=== PATIENT | male | born 1955 | race Caucasian/White ===

== ENCOUNTER 2020-08-30 15:22 | Inpatient (IN) | payer BC ==
--- NOTE | 2020-08-30 16:05 | ER Document Report ---
ED Medical Screen (RME) - General Chief Complaint: Abnormal Lab Results Stated Complaint: ABNORMAL LABS Time Seen by Provider: 08/30/20 16:00 Mode of Arrival: Wheelchair Information source: Patient Notes: 64-year-old male presented to ED for possible admission. Dr. Lopez sent him over for abnormal labs. 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 He is not on dialysis. Dr. Callum garcia said to try to get [facility] to admitting his his patient but he has not seen him yet. He has accepted him as a new make patient. Patient's blood pressure was very low in the triage area we have called charge nurse trying to get him room promptly due to the vital signs. Patient is alert oriented respirations regular nonlabored at this time. I have greeted and performed a rapid initial assessment of this patient. A comprehensive ED assessment and evaluation of the patient, analysis of test results and completion of medical decision making process will be conducted by an additional ED providers. - Related Data Allergies/Adverse Reactions: No Known Allergies Allergy (Verified 08/30/20 15:57) Physical Exam - Vital signs Vitals: Temp Pulse Resp BP Pulse Ox 97.7 F 89 22 H 89/52 L 98 08/30/20 15:39 08/30/20 15:39 08/30/20 15:39 08/30/20 15:39 08/30/20 15:39 Course - Vital Signs Vital signs: Temp Pulse Resp BP Pulse Ox 97.7 F 89 22 H 89/52 L 98 08/30/20 15:39 08/30/20 15:39 08/30/20 15:39 08/30/20 15:39 08/30/20 15:39
--- NOTE | 2020-08-30 16:47 | ER Document Report ---
ED General - General Chief Complaint: Abnormal Lab Results Stated Complaint: ABNORMAL LABS Time Seen by Provider: 08/30/20 16:00 Primary Care Provider: DIANA SHERMAN MD [Primary Care Provider] - Follow up as needed Mode of Arrival: Wheelchair Information source: Patient, Relative - [facility] Notes: Patient was recently diagnosed with metastatic esophageal cancer. He was living in [place] when this was diagnosed. He has since moved here to [place] to be with family and to start treatment. He had his first appointment with oncology yesterday. They are going to start his chemotherapy relatively soon. Some baseline labs are drawn at the oncologist office yesterday and they return markedly abnormal so patient was informed to come to the emergency department. Patient states he feels weak and short of breath. Patient has had some dull ri ght upper quadrant pain as well. It radiates into his back. This has been since before the diagnosis of cancer. No significant change of this pain. It is made worse with movement or palpation and better with rest. No vomiting. He has had decreased urine output and his urine has been dark. - Related Data Allergies/Adverse Reactions: No Known Allergies Allergy (Verified 08/30/20 15:57) Home Medications: heart. lasix. dm. ca Past Medical History - General Information source: Patient - Social History Smoking Status: Former Smoker Chew tobacco use (# tins/day): No Frequency of alcohol use: None Drug Abuse: None Family History: Reviewed & Not Pertinent Patient has homicidal ideation: No Review of Systems - Review of Systems Constitutional: Malaise, Weakness. denies: Chills, Fever Cardiovascular: denies: Chest pain, Palpitations Respiratory: Short of breath. denies: Cough -: Yes All other systems reviewed and negative Physical Exam - Vital signs Vitals: Temp Pulse Resp BP Pulse Ox 97.7 F 89 22 H 89/52 L 98 08/30/20 15:39 08/30/20 15:39 08/30/20 15:39 08/30/20 15:39 08/30/20 15:39 Interpretation: Hypotensive - General General appearance: Appears well, Alert - HEENT Head: Normocephalic, Atraumatic Eyes: Normal Pupils: PERRL - Respiratory Respiratory status: No respiratory distress Chest status: Nontender Breath sounds: Decreased air movement Chest palpation: Normal - Cardiovascular Rhythm: Regular Heart sounds: Normal auscultation Murmur: No - Abdominal Inspection: Morbidly Obese Distension: Distended Tenderness: Tender - Right upper quadrant - Back Back: Normal, Nontender - Extremities General upper extremity: Normal inspection, Nontender, Normal color, Normal ROM, Normal temperature General lower extremity: Nontender, Edema - 3+ pitting bilaterally - Neurological Neuro grossly intact: Yes Cognition: Normal Orientation: AAOx4 Maryann Coma Scale Eye Opening: Spontaneous Maryann Coma Scale Verbal: Oriented Lacey Coma Scale Motor: Obeys Commands Lacey Coma Scale Total: 15 Speech: Normal Motor strength normal: LUE, RUE, LLE, RLE Sensory: Normal - Psychological Associated symptoms: Normal affect, Normal mood - Skin Skin Temperature: Warm Skin Moisture: Dry Skin Color: Pale Course - Re-evaluation Re-evalutation: 08/30/20 17:50 Patient with a history of metastatic esophageal cancer. He presents secondary to having abnormal labs at the oncology office yesterday. He currently states he has some weakness, fatigue and shortness of breath. He has acute renal failure at this time. His potassium is stable. BP is borderline but vitals otherwise stable. I have discussed the case with the primary physician as well as with the battery container tester. Patient will be admitted for further evaluation and therapy of his metastatic cancer and acute renal failure. - Vital Signs Vital signs: Temp Pulse Resp BP Pulse Ox 97.7 F 89 23 H 94/56 L 100 08/30/20 15:58 08/30/20 15:39 08/30/20 16:31 08/30/20 16:31 08/30/20 16:31 - Laboratory Result Diagrams: 08/30/20 16:40 08/30/20 16:40 Laboratory results interpreted by me: 08/30/20 08/30/20 16:40 16:40 WBC 13.1 H RBC 3.35 L Hgb 11.0 L Hct 32.0 L RDW 18.5 H Seg Neuts % (Manual) 83 H Band Neutrophils % 1 L Lymphocytes % (Manual) 11 L Abs Neuts (Manual) 11.0 H Sodium 135.6 L Chloride 94 L BUN 90 H Creatinine 6.18 H Est GFR ( Amer) 11 L Est GFR (MDRD) Non-Af 9 L Glucose 114 H Total Bilirubin 3.5 H Direct Bilirubin 2.8 H AST 276 H Alkaline Phosphatase 524 H Total Protein 6.1 L Albumin 2.8 L - Diagnostic Test Radiology reviewed: Image reviewed, Reports reviewed - EKG Interpretation by Me EKG shows normal: Sinus rhythm Rate: Normal - 79 Rhythm: NSR Mary Alice/QRS: LAHB/LAFB Discharge - Discharge Clinical Impression: Acute renal failure Qualifiers: Acute renal failure type: unspecified Qualified Code(s): N17.9 - Acute kidney failure, unspecified Esophageal cancer Qualifiers: Malignant neoplasm of esophagus location: unspecified location Qualified Code(s): C15.9 - Malignant neoplasm of esophagus, unspecified Condition: Stable Disposition: ADMITTED INPATIENT Admitting Provider: [facility] Unit Admitted: IMCU Referrals: DIANA SHERMAN MD [Primary Care Provider] - Follow up as needed
[2020-08-30 17:02] LABS: MEAN CORPUSCULAR HEMOGLOBIN 32.8 pg (27.0-33.4); MEAN CORPUSCULAR HGB CONC 34.4 g/dL (32.0-36.0); MEAN CORPUSCULAR VOLUME 96 fl (80-97); PLATELET COUNT 275 10^3/uL (150-450); RED BLOOD COUNT 3.35 10^6/uL (4.35-5.55); RED CELL DISTRIBUTION WIDTH 18.5 % (11.5-14.0); WHITE BLOOD COUNT 13.1 10^3/uL (4.0-10.5)
--- NOTE | 2020-08-30 17:15 | RADIOLOGY REPORT (SQ) ---
EXAM DESCRIPTION: CHEST SINGLE VIEW IMAGES COMPLETED DATE/TIME: 08/30/2020 4:56 pm REASON FOR STUDY: sob COMPARISON: None. EXAM PARAMETERS: NUMBER OF VIEWS: One view. TECHNIQUE: Single frontal radiographic view of the chest acquired. RADIATION DOSE: NA LIMITATIONS: None. FINDINGS: LUNGS AND PLEURA: Parenchymal opacities at the left base. MEDIASTINUM AND HILAR STRUCTURES: No masses. Contour normal. HEART AND VASCULAR STRUCTURES: Heart normal in size. Normal vasculature. BONES: No acute findings. HARDWARE: Venous access catheter tip at the cavoatrial junction. OTHER: No other significant finding. IMPRESSION: Nonspecific parenchymal opacities left base. TECHNICAL DOCUMENTATION: JOB ID: [id number] 2010 [employer]- All Rights Reserved Reading location - IP/workstation name: [email or web address]
[2020-08-30 17:19] LABS: ALBUMIN 2.8 g/dL (3.5-5.0); ALKALINE PHOSPHATASE 524 U/L (38-126); ANION GAP 18 (5-19); ASPARTATE AMINO TRANSFERASE 276 U/L (17-59); BILIRUBIN,DIRECT 2.8 mg/dL (0.0-0.4); BILIRUBIN,TOTAL 3.5 mg/dL (0.2-1.3); BLOOD UREA NITROGEN 90 mg/dL (7-20); CALCIUM 8.6 mg/dL (8.4-10.2); CARBON DIOXIDE 24 mmol/L (22-30); CHLORIDE 94 mmol/L (98-107); GLUCOSE 114 mg/dL (75-110); POTASSIUM 3.7 mmol/L (3.6-5.0); TOTAL PROTEIN 6.1 g/dL (6.3-8.2)
[2020-08-30 17:36] LABS: ABSOLUTE LYMPHOCYTES# (MANUAL) 1.4 10^3/uL (0.5-4.7); ABSOLUTE MONOCYTES # (MANUAL) 0.5 10^3/uL (0.1-1.4); ANISOCYTOSIS 2+; BAND NEUTROPHILS % (MANUAL) 1 % (3-5); BASOPHILS % (MANUAL) 0 % (0-2); EOSINOPHILS % (MANUAL) 1 % (0-6); LYMPHOCYTES % (MANUAL) 11 % (13-45); MONOCYTES % (MANUAL) 4 % (3-13); PLATELET COMMENT ADEQUATE; SEGMENTED NEUTROPHILS % (MAN) 83 % (42-78); TOTAL CELLS COUNTED 100
[2020-08-30 17:37] LABS: POLYCHROMASIA SLIGHT
[2020-08-30 17:39] LABS: POIKILOCYTOSIS 1+; TARGET CELLS 1+
--- NOTE | 2020-08-30 18:06 | EKG REPORT ---
SEVERITY:- ABNORMAL ECG - SINUS RHYTHM LEFT ANTERIOR FASCICULAR BLOCK ABNRM R PROG, CONSIDER ASMI OR LEAD PLACEMENT PROLONGED QT INTERVAL : Confirmed by: Hannah Smith 30-Aug-2020 18:05:24
[2020-08-30] MEDS ORDERED: NORMAL SALINE 500 ML IV ONE (18:09)
[2020-08-30] MEDS ORDERED: NORMAL SALINE 1000 ML 1,000 ML IV PRN (18:14)
--- NOTE | 2020-08-30 18:20 | Progress Note ---
Provider Note Provider Note: pt seen and exam in er and d/w pr and his daughter pt is full code will getmed record as new pt for me
[2020-08-30] MEDS ORDERED: DOPAMINE HCL/DEXTROSE 5%-WATER 400 MG/250 ML RTUINJ IV PRN (18:29)
[2020-08-30] MEDS ORDERED: NORMAL SALINE 250 ML with FUROSEMIDE 250 MG IV PRN ×2 (18:30)
[2020-08-30] MEDS ORDERED: ALBUMIN HUMAN 12.5 GM/50 ML RTUINJ IV ONE (18:45)
--- NOTE | 2020-08-30 18:55 | RADIOLOGY REPORT (SQ) ---
EXAM DESCRIPTION: CT ABD/PELVIS NO ORAL OR IV IMAGES COMPLETED DATE/TIME: 08/30/2020 6:33 pm REASON FOR STUDY: renal faiulre COMPARISON: None. TECHNIQUE: CT scan of the abdomen and pelvis performed without intravenous or oral contrast. Images reviewed with lung, soft tissue, and bone windows. Reconstructed coronal and sagittal MPR images revi ewed. All images stored on PACS. All CT scanners at this facility use dose modulation, iterative reconstruction, and/or weight based d osing when appropriate to reduce radiation dose to as low as reasonably achievable (ALARA). [facility]: Dose Right [facility]: CareDose [facility]: Dose Right [facility]: Teradose 4D [facility]: Smart Onevest RADIATION DOSE: CT Rad equipment meets quality standard of care and radiation dose reduction techniq ues were employed. CTDIvol: 19.1 mGy. DLP: 1153 mGy-cm.mGy. LIMITATIONS: None. FINDINGS: LOWER CHEST: No significant findings. No nodules or infiltrates. NON-CONTRASTED LIVER, SPLEEN, ADRENALS: The liver parenchymal pattern is somewhat heterogeneous. The re are possible masses in the liver. Small amount of fluid along the inferior liver. 3 cm left adre nal mass. PANCREAS: No masses. No peripancreatic inflammatory changes. GALLBLADDER: No identified stones by CT criteria. No inflammatory changes to suggest cholecystitis. RIGHT KIDNEY AND URETER: No suspicious masses. Assessment limited by lack of IV contrast. No signif icant calcifications. No hydronephrosis or hydroureter. LEFT KIDNEY AND URETER: No suspicious masses. Assessment limited by lack of IV contrast. No signifi cant calcifications. No hydronephrosis or hydroureter. AORTA AND RETROPERITONEUM: No aneurysm. No retroperitoneal masses or adenopathy. BOWEL AND PERITONEAL CAVITY: Generalized ascites. No obvious masses. Diverticulosis. APPENDIX: Not visualized. PELVIS, BLADDER, AND ABDOMINAL WALL:No abnormal masses. No free fluid. Bladder normal. BONES: No significant findings. OTHER: No other significant finding. IMPRESSION: Heterogeneous pattern in the liver which is strongly suspicious for multiple masses. Generalize moderate ascites. Findings very worrisome for metastatic disease. COMMENT: Recommend hepatic ultrasound. Quality ID # [id number]: Final reports with documentation of one or more dose reduction techniques (e.g., Au tomated exposure control, adjustment of the mA and/or kV according to patient size, use of iterative reconstruction technique) TECHNICAL DOCUMENTATION: JOB ID: [id number] 2010 [employer]- All Rights Reserved Reading location - IP/workstation name: [email or web address]
[2020-08-30] MEDS ORDERED: DOPAMINE HCL/DEXTROSE 5%-WATER 800 MG/250 ML RTUINJ IV PRN (18:56)
--- NOTE | 2020-08-30 19:01 | RADIOLOGY REPORT (SQ) ---
EXAM DESCRIPTION: VENOUS BILATERAL LOWER IMAGES COMPLETED DATE/TIME: 08/30/2020 6:40 pm REASON FOR STUDY: CRESCENCIO leg swelling COMPARISON: None. TECHNIQUE: Dynamic and static santos scale and color images acquired of both lower extremity venous sy stems. Selected spectral images acquired with additional compression and augmentation maneuvers. Imag es stored on PACS. LIMITATIONS: None. FINDINGS: RIGHT LEG COMMON FEMORAL AND FEMORAL: Normal phasicity, compression and augmentation. No visualized echogenic m aterial on santos scale. No defects on color images. POPLITEAL: Normal compression and augmentation. No visualized echogenic material on santos scale. No de fects on color images. CALF VESSELS: Normal compression and augmentation. No visualized echogenic material on santos scale. No defects on color image. GSV AND SSV: Normal compression. No visualized echogenic material on santos scale. No defects on color images. ANY DEEP VENOUS INSUFFICIENCY: Not evaluated. ANY EVIDENCE OF POPLITEAL CYST: No. OTHER: No other significant finding. LEFT LEG COMMON FEMORAL AND FEMORAL: Normal phasicity, compression and augmentation. No visualized echogenic m aterial on santos scale. No defects on color images. POPLITEAL: Normal compression and augmentation. No visualized echogenic material on santos scale. No de fects on color images. CALF VESSELS: Normal compression and augmentation. No visualized echogenic material on santos scale. No defects on color images. GSV AND SSV: Chronic in the saphenous below the knee. ANY DEEP VENOUS INSUFFICIENCY: Not evaluated. ANY EVIDENCE POPLITEAL CYST: No. OTHER: No other significant finding. IMPRESSION: No acute DVT or SVT in either leg. 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 TECHNICAL DOCUMENTATION: JOB ID: [id number] 2010 [employer]- All Rights Reserved Reading location - IP/workstation name: [email or web address]
[2020-08-30] MEDS: CEFTRIAXONE 1 GM/D5W RTU 1 GM/50 ML RTUPB IV SCH (19:08)
--- NOTE | 2020-08-30 19:28 | RADIOLOGY REPORT (SQ) ---
EXAM DESCRIPTION: U/S RETROPERITON (RENAL/AORTA) IMAGES COMPLETED DATE/TIME: 08/30/2020 7:18 pm REASON FOR STUDY: hypotension/low urine output/eval kidneys COMPARISON: None. TECHNIQUE: Dynamic and static grayscale images acquired of the kidneys and bladder and recorded on P ACS. Additional selected color Doppler and spectral images recorded. LIMITATIONS: None. FINDINGS: RIGHT KIDNEY: 12 cm Normal echogenicity. 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 No hydronephrosis. No calcifications. LEFT KIDNEY: Normal size. Normal echogenicity. No solid or suspicious masses. No hydronephrosi s. No calcifications. BLADDER: No masses. OTHER FINDINGS: Liver minimally imaged. Suggestion heterogeneous pattern. IMPRESSION: Angio Pramod lipoma in the right kidney. No hydronephrosis. TECHNICAL DOCUMENTATION: JOB ID: [id number] [employer]- All Rights Reserved Reading location - IP/workstation name: [email or web address]
[2020-08-30] MEDS ORDERED: LIDOCAINE 2% URO-JET 5 ML KIT MM ONE (22:49)
[2020-08-30 23:01] LABS: APPEARANCE,URINE CLOUDY; BILIRUBIN,URINE SMALL (NEGATIVE); COLOR,URINE AMBER; GLUCOSE, URINE NEGATIVE (NEGATIVE); KETONES,URINE NEGATIVE (NEGATIVE); LEUKOCYTE ESTERASE,URINE NEGATIVE (NEGATIVE); NITRITE,URINE NEGATIVE (NEGATIVE); PROTEIN,URINE 30 mg/dL (NEGATIVE); URINE SPECIFIC GRAVITY 1.018
[2020-08-31] MEDS: PANTOPRAZOLE SODIUM 40 MG TABLET.DR PO SCH ×2 (06:09→18:24)
[2020-08-31 07:17] LABS: HEMATOCRIT 30.3 % (37.9-51.0); HEMOGLOBIN 10.2 g/dL (13.5-17.0); MEAN CORPUSCULAR HEMOGLOBIN 32.3 pg (27.0-33.4); MEAN CORPUSCULAR HGB CONC 33.8 g/dL (32.0-36.0); MEAN CORPUSCULAR VOLUME 96 fl (80-97); PLATELET COUNT 239 10^3/uL (150-450); RED BLOOD COUNT 3.17 10^6/uL (4.35-5.55); RED CELL DISTRIBUTION WIDTH 18.7 % (11.5-14.0)
[2020-08-31 07:36] LABS: ALBUMIN 2.7 g/dL (3.5-5.0); ALKALINE PHOSPHATASE 440 U/L (38-126); ANION GAP 17 (5-19); ASPARTATE AMINO TRANSFERASE 249 U/L (17-59); BILIRUBIN,TOTAL 3.8 mg/dL (0.2-1.3); BLOOD UREA NITROGEN 97 mg/dL (7-20); CALCIUM 8.8 mg/dL (8.4-10.2); CARBON DIOXIDE 24 mmol/L (22-30); CHLORIDE 95 mmol/L (98-107); GLUCOSE 100 mg/dL (75-110); POTASSIUM 4.3 mmol/L (3.6-5.0); TOTAL PROTEIN 6.2 g/dL (6.3-8.2)
--- NOTE | 2020-08-31 08:12 | PDOC CONSULTATION ---
Consultation Consult Date: 08/31/20 Attending physician:: MAYA HOUSER Provider Consulted: DIANA SHERMAN Consult reason:: Patient with stage IV esophageal cancer here with acute renal failure, anasarca History of Present Illness Admission Date/PCP: 08/30/20 18:04 DIANA SHERMAN MD Patient complains of: Weakness, anasarca History of Present Illness: RO PLATT is a 65 year old male who I just met in our oncology clinic 2 days ago. He just moved here to stay with his daughter from [place]. While in [place] he presented to an outside hospital with right upper quadrant pain, and was being worked up for concern of cholecystitis. Unfortunately during the work-up he was found to be in rapid A. fib, and felt by cardiology to be in diastolic heart failure. We do have a [facility] record from that time that indicated an EF of 65%. But I do not have the full TTE echo records. His heart rate was controlled ultimately on amiodarone. He was also placed on Xarelto for the A. fib. He had CT of the chest abdomen pelvis ultimately done which indicated, multiple liver lesions, he had complaints of dysphagia, he had EGD done which i ndicated a lower esophageal mass, ultimately had biopsy of both the lower esophageal mass as well as one of the liver lesions by CT-guided biopsy, both indicated moderately differentiated adenocarcinoma consistent with GI primary, consistent with metastatic esophageal cancer. He had port placed during that admission. During that admission he did present with acute renal failure but I have a discharge summary which indicated that his discharge creatinine was 0.78. He was however quite edematous and he was placed on Lasix 80 mg daily. He saw me 2 days ago and I sent labs, labs returned yesterday with a creatinine of 5.6 and we instructed him to come to the ER. He was admitted under Dr. Houser service, has nephrology as well as cardiology consulting as well. Past Medical History Cardiac Medical History: Reports: Atrial Fibrillation, Congestive Heart Failure, Hypertension Malignancy Medical History: Reports: Other - Stage IV esophageal cancer Past Surgical History Past Surgical History: Reports: Other - Port placement, liver biopsy, EGD Social History Information Source: Patient Smoking Status: Former Smoker Cigarettes Packs Per Day: 1 Electronic Cigarette use?: No Number of Years Smokin Frequency of Alcohol Use: None Hx Recreational Drug Use: No Hx Prescription Drug Abuse: No - Advance Directive Resuscitation Status: Full Code Family History Family History: Reviewed & Not Pertinent Parental Family History Reviewed: Yes Children Family History Reviewed: Yes Sibling(s) Family History Reviewed.: Yes Medication/Allergy Allergies/Adverse Reactions: No Known Allergies Allergy (Verified 08/30/20 15:57) Review of Systems Constitutional: ABSENT: chills, fever(s), headache(s), weight gain, weight loss Eyes: ABSENT: visual disturbances Ears: ABSENT: hearing changes Cardiovascular: ABSENT: chest pain, dyspnea on exertion, edema, orthropnea, palpitations Respiratory: ABSENT: cough, hemoptysis Gastrointestinal: ABSENT: abdominal pain, constipation, diarrhea, hematemesis, hematochezia, nausea, vomiting Genitourinary: ABSENT: dysuria, hematuria Musculoskeletal: ABSENT: joint swelling Integumentary: ABSENT: rash, wounds Neurological: ABSENT: abnormal gait, abnormal speech, confusion, dizziness, focal weakness, syncope Psychiatric: ABSENT: anxiety, depression, homidical ideation, suicidal ideation Endocrine: ABSENT: cold intolerance, heat intolerance, polydipsia, polyuria Hematologic/Lymphatic: ABSENT: easy bleeding, easy bruising Physical Exam Vital Signs: Temp Pulse Resp BP Pulse Ox 98.0 F 89 19 89/61 L 97 08/30/20 21:39 08/30/20 15:39 08/31/20 07:01 08/31/20 07:01 08/31/20 07:01 Intake & Output 08/30/20 08/31/20 09/01/20 06:59 06:59 06:59 Intake Total 100 Balance 100 Weight 133.5 kg General appearance: PRESENT: no acute distress, well-developed, well-nourished Head exam: PRESENT: atraumatic, normocephalic Eye exam: PRESENT: conjunctiva pink, EOMI, PERRLA. ABSENT: scleral icterus Ear exam: PRESENT: normal external ear exam Mouth exam: PRESENT: moist, tongue midline Neck exam: ABSENT: carotid bruit, JVD, lymphadenopathy, thyromegaly Respiratory exam: PRESENT: clear to auscultation darron. ABSENT: rales, rhonchi, wheezes Cardiovascular exam: PRESENT: RRR. ABSENT: diastolic murmur, rubs, systolic murmur Pulses: PRESENT: normal dorsalis pedis pul Vascular exam: PRESENT: normal capillary refill GI/Abdominal exam: PRESENT: normal bowel sounds, soft. ABSENT: distended, guarding, mass, organolmegaly, rebound, tenderness Rectal exam: PRESENT: deferred Extremities exam: PRESENT: full ROM. ABSENT: calf tenderness, clubbing, pedal edema Neurological exam: PRESENT: alert, awake, oriented to person, oriented to place, oriented to time, oriented to situation, CN II-XII grossly intact. ABSENT: motor sensory deficit Psychiatric exam: PRESENT: appropriate affect, normal mood. ABSENT: homicidal ideation, suicidal ideation Skin exam: PRESENT: dry, intact, warm. ABSENT: cyanosis, rash Results Laboratory Results: 08/31/20 06:50 08/30/20 08/30/20 08/30/20 16:40 16:40 16:40 WBC 13.1 H RBC 3.35 L Hgb 11.0 L Hct 32.0 L MCV 96 MCH 32.8 MCHC 34.4 RDW 18.5 H Plt Count 275 Seg Neutrophils % Not Reportable Sodium 135.6 L Potassium 3.7 Chloride 94 L Carbon Dioxide 24 Anion Gap 18 BUN 90 H Creatinine 6.18 H Est GFR ( Amer) 11 L Glucose 114 H Calcium 8.6 Magnesium Total Bilirubin 3.5 H AST 276 H Alkaline Phosphatase 524 H Total Protein 6.1 L Albumin 2.8 L Lipase 64.1 TSH 12.00 H Urine Color Urine Appearance Urine pH Ur Specific [place] Urine Protein Urine Glucose (UA) Urine Ketones Urine Blood Urine Nitrite Ur Leukocyte Esterase Urine WBC (Auto) Urine RBC (Auto) 08/30/20 08/31/20 22:32 06:50 WBC RBC Hgb Hct MCV MCH MCHC RDW Plt Count Seg Neutrophils % Sodium 136.0 L Potassium 4.3 Chloride 95 L Carbon Dioxide 24 Anion Gap 17 BUN 97 H Creatinine 5.69 H Est GFR ( Amer) 12 L Glucose 100 Calcium 8.8 Magnesium 1.6 Total Bilirubin 3.8 H AST 249 H Alkaline Phosphatase 440 H Total Protein 6.2 L Albumin 2.7 L Lipase TSH Urine Color ISABELL Urine Appearance CLOUDY Urine pH 5.0 Ur Specific [place] 1.018 Urine Protein 30 H Urine Glucose (UA) NEGATIVE Urine Ketones NEGATIVE Urine Blood NEGATIVE Urine Nitrite NEGATIVE Ur Leukocyte Esterase NEGATIVE Urine WBC (Auto) 6 Urine RBC (Auto) 2 08/30/20 08/31/20 16:40 06:50 Troponin I < 0.012 NT-Pro-B Natriuret Pep 3560 H Impressions: Abdomen/Pelvis CT 08/30/20 00:00 IMPRESSION: Heterogeneous pattern in the liver which is strongly suspicious for multiple masses. Generalize moderate ascites. Findings very worrisome for metastatic disease. Chest X-Ray 08/30/20 16:23 IMPRESSION: Nonspecific parenchymal opacities left base. Venous Doppler Study 08/30/20 17:06 IMPRESSION: No acute DVT or SVT in either leg. 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 No hydronephrosis. Assessment & Plan - Diagnosis (1) Esophageal cancer Qualifiers: Malignant neoplasm of esophagus location: lower third Qualified Code(s): 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 Is this a current diagnosis for this admission?: Yes Plan: Stage IV esophageal cancer. We had plan to initiate him on FOLFOX chemotherapy as an outpatient but hopefully his kidney function improves and his overall functional status improves so that he can be able to get this therapy. I had a dalia discussion about his current status of disease and next steps of care. (2) Acute renal failure Qualifiers: Acute renal failure type: unspecified Qualified Code(s): N17.9 - Acute kidney failure, unspecified Is this a current diagnosis for this admission?: Yes Plan: Hopefully just secondary to dehydration but may be related in some part to diastolic heart failure. Nephrology on board, primary team consulting as well. - Time Time Spent: Greater than 70 Minutes - Inpatient Certification Based on my medical assessment, after consideration of the patient's comorbidities, presenting symptoms, or acuity I expect that the services needed warrant INPATIENT care.: Yes I certify that my determination is in accordance with my understanding of Medicare's requirements for reasonable and necessary INPATIENT services [42 CFR 412.3e].: Yes Medical Necessity: Risk of Complication if Not Cared For in Hospital
[2020-08-31 08:30] LABS: ABSOLUTE LYMPHOCYTES# (MANUAL) 1.8 10^3/uL (0.5-4.7); ABSOLUTE MONOCYTES # (MANUAL) 0.7 10^3/uL (0.1-1.4); BAND NEUTROPHILS % (MANUAL) 1 % (3-5); BASOPHILS % (MANUAL) 0 % (0-2); EOSINOPHILS % (MANUAL) 0 % (0-6); LYMPHOCYTES % (MANUAL) 12 % (13-45); METAMYELOCYTES % (MANUAL) 1 % (0-1); MONOCYTES % (MANUAL) 5 % (3-13); SEGMENTED NEUTROPHILS % (MAN) 80 % (42-78); TOTAL CELLS COUNTED 100
[2020-08-31 08:32] LABS: ANISOCYTOSIS 2+; POIKILOCYTOSIS 1+; TARGET CELLS 1+
[2020-08-31 08:33] LABS: BURR CELLS 1+; PLATELET COMMENT ADEQUATE
--- NOTE | 2020-08-31 12:07 | PDOC H&P ---
History of Present Illness Admission Date/PCP: 08/30/20 18:04 DIANA SHERMAN MD Patient complains of: Abnormal kidney functions History of Present Illness: RO PLATT is a 65 year old male There is a 65-year-old male's recently diagnosed with a cervical cancer with the liver metastatic disease recently moved from [place] see a Dr. Nolen oncology In his office and recently a port placementsFor potentially start the chemotherapy next week have a routine blood work done and noticed the patient's creatinine was around 6 According to the oncology patient have a significant swelling in the lower extremities and abdominal area patient received 1 dose of the Lasix And patient also have a elevated LFT with the jaundice decided to send to the emergency department Patient have appointment to see me next week never seen beforeIn my office When I saw the patient's in the ER the daughter is on the bedside getting the all history is the patient was admitting in the hospital before he moved here for the questionable cholecystitis and diagnosed with the cervical cancer with the liver mets Patient have echocardiogram done and seen by the cardiology and diagnosed with a diastolic heart failure with a EF was normal Patient also have an acute renal failure but will discharge the patient's creatinine was 0.79 Patient's denied any heart disease in the past except that have as above denied any kidney problem in the past Patient's denied any chest pain no short of breath patients feel fine Patient's blood pressure was running low and albumin is also low At this point decided to admit in the hospital for the further evaluations very extensive discussion with the patient and the daughter regarding the patient's current conditions discussed about the CODE STATUS patient is currently is a full code Discussed with the nephrology cardiology and oncology Start on a dopamine drip in the Lasix drip per nephrology Patient CT scan of the abdomen pelvis did not show any acute finding in the kidney except angiolipoma And ongoing liver issues Past Medical History Cardiac Medical History: Reports: Atrial Fibrillation, Congestive Heart Failure, Hypertension Malignancy Medical History: Reports: Other - Stage IV esophageal cancer Malignancy History Note: Esophageal cancer with the liver mets Psychiatric Medical History: Reports: Depression Past Surgical History Past Surgical History: Reports: Other - Port placement, liver biopsy, EGD Social History Information Source: Patient Smoking Status: Former Smoker Cigarettes Packs Per Day: 1 Electronic Cigarette use?: No Number of Years Smokin Last Time Smoked: 2019 Frequency of Alcohol Use: None Hx Recreational Drug Use: No Hx Prescription Drug Abuse: No - Advance Directive Resuscitation Status: Full Code Family History Family History: Reviewed & Not Pertinent Parental Family History Reviewed: Yes Children Family History Reviewed: Yes Sibling(s) Family History Reviewed.: Yes Medication/Allergy Home Medications: Albuterol Sulfate [Albuterol Sulfate Hfa] 2 puff IH Q6HP PRN 08/31/20 Dulaglutide [Trulicity] 0.75 mg SQ DAILY 08/31/20 Gabapentin [Neurontin 300 mg Capsule] 300 mg PO DAILY 08/31/20 Metformin HCl [Glucophage 500 mg Tablet] 500 mg PO DAILY 08/31/20 Omeprazole 20 mg PO DAILY 08/31/20 Rivaroxaban [Xarelto] 20 mg PO DAILY 08/31/20 Rosuvastatin Calcium 5 mg PO DAILY 08/31/20 Allergies/Adverse Reactions: No Known Allergies Allergy (Verified 08/30/20 15:57) Review of Systems Constitutional: PRESENT: anorexia, fatigue. ABSENT: chills, fever(s), headache(s), weight gain, weight loss Eyes: ABSENT: visual disturbances Ears: ABSENT: hearing changes Cardiovascular: ABSENT: chest pain, dyspnea on exertion, edema, orthropnea, palpitations Respiratory: ABSENT: cough, hemoptysis Gastrointestinal: ABSENT: abdominal pain, constipation, diarrhea, hematemesis, hematochezia, nausea, vomiting Genitourinary: ABSENT: dysuria, hematuria Musculoskeletal: ABSENT: joint swelling Integumentary: ABSENT: rash, wounds Neurological: ABSENT: abnormal gait, abnormal speech, confusion, dizziness, focal weakness, syncope Psychiatric: ABSENT: anxiety, depression, homidical ideation, suicidal ideation Endocrine: ABSENT: cold intolerance, heat intolerance, menstrual abnormalities, polydipsia, polyuria Hematologic/Lymphatic: ABSENT: easy bleeding, easy bruising, lymphadenopathy Physical Exam Vital Signs: Temp Pulse Resp BP Pulse Ox 97.6 F 104 H 16 105/68 94 08/31/20 10:48 08/31/20 11:34 08/31/20 10:48 08/31/20 11:00 08/31/20 09:16 Intake & Output 08/30/20 08/31/20 09/01/20 06:59 06:59 06:59 Intake Total 100 Balance 100 Weight 133.5 kg General appearance: PRESENT: no acute distress, well-developed, well-nourished Head exam: PRESENT: atraumatic, normocephalic Eye exam: PRESENT: conjunctiva pink, EOMI, PERRLA, scleral icterus Ear exam: PRESENT: normal external ear exam Mouth exam: PRESENT: moist, tongue midline Neck exam: PRESENT: full ROM. ABSENT: carotid bruit, JVD, lymphadenopathy, thyromegaly Respiratory exam: PRESENT: clear to auscultation darron Cardiovascular exam: PRESENT: RRR. ABSENT: diastolic murmur, rubs, systolic murmur Pulses: PRESENT: normal dorsalis pedis pul, +2 pedal pulses bilateral Vascular exam: PRESENT: normal capillary refill GI/Abdominal exam: PRESENT: ascites, distended, normal bowel sounds, soft. A BSENT: guarding, mass, organolmegaly, rebound, tenderness Rectal exam: PRESENT: deferred Extremities exam: PRESENT: pedal edema Neurological exam: PRESENT: alert, awake, oriented to person, oriented to place, oriented to time, oriented to situation, CN II-XII grossly intact. ABSENT: motor sensory deficit Psychiatric exam: PRESENT: appropriate affect, normal mood. ABSENT: homicidal ideation, suicidal ideation Skin exam: PRESENT: dry, intact, warm. ABSENT: cyanosis, rash Results Laboratory Results: 08/31/20 06:50 08/31/20 06:50 08/30/20 08/30/20 08/30/20 16:40 16:40 16:40 WBC 13.1 H RBC 3.35 L Hgb 11.0 L Hct 32.0 L MCV 96 MCH 32.8 MCHC 34.4 RDW 18.5 H Plt Count 275 Seg Neutrophils % Not Reportable Sodium 135.6 L Potassium 3.7 Chloride 94 L Carbon Dioxide 24 Anion Gap 18 BUN 90 H Creatinine 6.18 H Est GFR ( Amer) 11 L Glucose 114 H Calcium 8.6 Magnesium Total Bilirubin 3.5 H AST 276 H Alkaline Phosphatase 524 H Total Protein 6.1 L Albumin 2.8 L Lipase 64.1 TSH 12.00 H Urine Color Urine Appearance Urine pH Ur Specific [place] Urine Protein Urine Glucose (UA) Urine Ketones Urine Blood Urine Nitrite Ur Leukocyte Esterase Urine WBC (Auto) Urine RBC (Auto) 08/30/20 08/31/20 08/31/20 22:32 06:50 06:50 WBC 14.0 H RBC 3.17 L Hgb 10.2 L Hct 30.3 L MCV 96 MCH 32.3 MCHC 33.8 RDW 18.7 H Plt Count 239 Seg Neutrophils % Not Reportable Sodium 136.0 L Potassium 4.3 Chloride 95 L Carbon Dioxide 24 Anion Gap 17 BUN 97 H Creatinine 5.69 H Est GFR ( Amer) 12 L Glucose 100 Calcium 8.8 Magnesium 1.6 Total Bilirubin 3.8 H AST 249 H Alkaline Phosphatase 440 H Total Protein 6.2 L Albumin 2.7 L Lipase TSH Urine Color ISABELL Urine Appearance CLOUDY Urine pH 5.0 Ur Specific [place] 1.018 Urine Protein 30 H Urine Glucose (UA) NEGATIVE Urine Ketones NEGATIVE Urine Blood NEGATIVE Urine Nitrite NEGATIVE Ur Leukocyte Esterase NEGATIVE Urine WBC (Auto) 6 Urine RBC (Auto) 2 08/30/20 08/31/20 16:40 06:50 Troponin I < 0.012 NT-Pro-B Natriuret Pep 3560 H Impressions: Abdomen/Pelvis CT 08/30/20 00:00 IMPRESSION: Heterogeneous pattern in the liver which is strongly suspicious for multiple masses. Generalize moderate ascites. Findings very worrisome for metastatic disease. Chest X-Ray 08/30/20 16:23 IMPRESSION: Nonspecific parenchymal opacities left base. Venous Doppler Study 08/30/20 17:06 IMPRESSION: No acute DVT or SVT in either leg. 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 No hydronephrosis. Assessment & Plan - Diagnosis (1) Acute renal failure Qualifiers: Acute renal failure type: unspecified Qualified Code(s): N17.9 - Acute kidney failure, unspecified Is this a current diagnosis for this admission?: Yes Plan: With the multiple issues with the probably diastolic heart failure versus poor p.o. intake versus recent liver mets developing hepatorenal syndrome at this point patient's blood pressure is low albumin is low start on a dopamine drip due to the anasarca start on a Lasix drip follow-up with the nephrology and cardiology Discussed with the patient and the daughter at the bedside regarding the all the labs potentially may need a dialysis depends on how the number goes We will try to get the medical record to evaluate (2) Diastolic congestive heart failure Qualifiers: Heart failure chronicity: acute on chronic Qualified Code(s): I50.33 - Acute on chronic diastolic (congestive) heart failure Is this a current diagnosis for this admission?: Yes Plan: Continues the Lasix drip consult the cardiology (3) Jaundice Is this a current diagnosis for this admission?: Yes Plan: Due to the metastatic disease in the liver CT abdomen pelvis did not find any other obstructions (5) Hypotension Qualifiers: Hypotension type: unspecified hypotension type Qualified Code(s): I95.9 - Hypotension, unspecified Is this a current diagnosis for this admission?: Yes Plan: We will get the blood culture urine culture to rule out any sepsis unlikely most likely from the low albumin give a more albumin today continues a dopamine dr ips (6) Protein malnutrition Is this a current diagnosis for this admission?: Yes (7) Ascites Qualifiers: Ascites type: malignant Qualified Code(s): R18.0 - Malignant ascites Is this a current diagnosis for this admission?: Yes Plan: Will continues follow-up with the oncology (8) Esophageal cancer Qualifiers: Malignant neoplasm of esophagus location: lower third Qualified Code(s): 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 Is this a current diagnosis for this admission?: Yes Plan: Follow-up with oncology - Time Time Spent: 50 to 70 Minutes Medications reviewed and adjusted accordingly: Yes Anticipated Discharge Disposition: Home with Home Health Anticipated Discharge Timeframe: within 72 hours - Inpatient Certification Based on my medical assessment, after consideration of the patient's comorbidities, presenting symptoms, or acuity I expect that the services needed warrant INPATIENT care.: Yes I certify that my determination is in accordance with my understanding of Medicare's requirements for reasonable and necessary INPATIENT services [42 CFR 412.3e].: Yes Medical Necessity: Significant Comorbidiites Make Outpatient Treatment Too Risky, Need Close Monitoring Due to Risk of Patient Decompensation Post Hospital Care: D/C Twist Maker Documentation - Plan Summary Plan Summary: Admit the patient in IMCU Discussed with the patient and the daughter at the bedside
--- NOTE | 2020-08-31 12:07 | PDOC CONSULTATION ---
Consultation Consult Date: 08/31/20 Provider Consulted: Hernesto BLANK Consult reason:: SHEEBA History of Present Illness Admission Date/PCP: 08/30/20 18:04 DIANA LOPEZ MD History of Present Illness: RO PLATT is a 65 year old male with a background history of diabetes mellitus hypertension, hyperlipidemia, recently diagnosed paroxysmal atrial fibrillation, stage IV esophageal cancer who has just moved from [place] to stay with his daughter was admitted to the ER with SHEEBA when outpatient labs done with Dr. Lopez/oncology revealed a creatinine of 5+. History was gathered by discussion with the patient as well as review of chart. He just moved here to stay with his daughter from [place]. While in [place] he presented to an outside hospital with right upper quadrant pain, and was being worked up for concern of cholecystitis. Unfortunately during the work-up he was found to be in rapid A. fib, and felt by cardiology to be in diastolic heart failure. We do have a [facility] record from that time that indicated an EF of 65%. His heart rate was controlled ultimately on amiodarone. He was also placed on Xarelto for the A. fib. He had CT of the chest abdomen pelvis u ltimately done which indicated, multiple liver lesions, he had complaints of dysphagia, he had EGD done which indicated a lower esophageal mass, ultimately had biopsy of both the lower esophageal mass as well as one of the liver lesions by CT-guided biopsy, both indicated moderately differentiated adenocarcinoma consistent with GI primary, consistent with metastatic esophageal cancer. He had port placed during that admission. During that admission he did present with acute renal failure and Dr Lopez has seen the discharge summary which indicated that his discharge creatinine was 0.78. He was however quite edematous and he was placed on Lasix 80 mg daily. Patient has been noticing progressing edema of his lower extremities and his abdomen for the last 1 week or so. He is also complaining of some amount of right upper quadrant pain. He is anorexic very poor appetite and has noticed some weight loss. No history of any recent NSAID intake. He admits to poor fluid and food intake along with rather decreasing urine output over the last couple of days. No history of any nausea vomiting or diarrhea.Evaluations in the ER revealed patient was rather hypotensive and was anasarcous. He had very low urine output. 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 His labs shows SHEEBA with a creatinine of 5+ along with an obstructive LFTs. On my recommendations the patient was begun on IV dopamine along with IV Lasix infusion. He denies any history of chest pain or shortness of breath, fever or chills. Past Medical History Cardiac Medical History: Reports: Atrial Fibrillation, Hyperlipidemia, Hypertension-primary Endocrine Medical History: Reports: Diabetes Mellitus Type 2 Malignancy Medical History: Reports: Other - Stage IV esophageal cancer Psychiatric Medical History: Reports: Depression Past Surgical History Past Surgical History: Reports: Other - Port placement, liver biopsy, EGD Social History Smoking Status: Former Smoker Cigarettes Packs Per Day: 1 Electronic Cigarette use?: No Number of Years Smokin Last Time Smoked: 2019 Frequency of Alcohol Use: None Hx Recreational Drug Use: No Hx Prescription Drug Abuse: No - Advance Directive Resuscitation Status: Full Code Family History Parental Family History Reviewed: Yes - Negative for ESRD Children Family History Reviewed: No Sibling(s) Family History Reviewed.: No Medication/Allergy Home Medications: Albuterol Sulfate [Albuterol Sulfate Hfa] 2 puff IH Q6HP PRN 08/31/20 Albuterol Sulfate [Proair Hfa Inhalation Aerosol 8.5 gm Mdi] 1 puff IH Q6HP PRN 08/31/20 Dulaglutide [Trulicity] 0.75 mg SQ DAILY 08/31/20 Gabapentin [Neurontin 300 mg Capsule] 300 mg PO DAILY 08/31/20 Metformin HCl [Glucophage 500 mg Tablet] 500 mg PO DAILY 08/31/20 Omeprazole 20 mg PO DAILY 08/31/20 Rivaroxaban [Xarelto] 20 mg PO DAILY 08/31/20 Rosuvastatin Calcium 5 mg PO DAILY 08/31/20 Allergies/Adverse Reactions: No Known Allergies Allergy (Verified 08/30/20 15:57) Review of Systems Constitutional: PRESENT: anorexia, fatigue, weakness, weight loss. ABSENT: chills, fever(s), headache(s), night sweats Nose, Mouth, and Throat: ABSENT: mouth pain, sore throat Cardiovascular: PRESENT: edema. ABSENT: chest pain, dyspnea on exertion, orthropnea Respiratory: ABSENT: cough, dyspnea, hemoptysis Gastrointestinal: PRESENT: abdominal pain - RUQ., dysphagia. ABSENT: diarrhea, heartburn, hematemesis, hematochezia, nausea, vomiting Genitourinary: ABSENT: difficulty urinating, dysuria, hematuria Musculoskeletal: ABSENT: deformity, joint swelling Integumentary: ABSENT: lesions, pruritus, rash Neurological: ABSENT: abnormal movements, abnormal speech, confusion, convulsions, focal weakness, frequent falls Hematologic/Lymphatic: ABSENT: easy bruising, lymphadenopathy Physical Exam Vital Signs: Temp Pulse Resp BP Pulse Ox 97.6 F 104 H 16 105/68 94 08/31/20 10:48 08/31/20 11:34 08/31/20 10:48 08/31/20 11:00 08/31/20 09:16 Intake & Output 08/30/20 08/31/20 09/01/20 06:59 06:59 06:59 Intake Total 100 Balance 100 Weight 133.5 kg General appearance: PRESENT: no acute distress Eye exam: PRESENT: EOMI, PERRLA, scleral icterus Mouth exam: PRESENT: moist, neck supple Neck exam: ABSENT: lymphadenopathy, meningismus, tenderness, thyromegaly, tracheal deviation Respiratory exam: PRESENT: clear to auscultation darron, decreased breath sounds. ABSENT: crackles Cardiovascular exam: PRESENT: +S1, +S2 GI/Abdominal exam: PRESENT: ascites, distended, organomegaly, soft, tenderness - RUQ. ABSENT: firm, guarding, normal bowel sounds Extremities exam: PRESENT: +1 edema Neurological exam: PRESENT: alert, awake, oriented to person, oriented to place Psychiatric exam: PRESENT: anxious Skin exam: ABSENT: erythema, mottled, rash Results Laboratory Results: 08/31/20 06:50 08/31/20 06:50 08/30/20 08/30/20 08/30/20 16:40 16:40 16:40 WBC 13.1 H RBC 3.35 L Hgb 11.0 L Hct 32.0 L MCV 96 MCH 32.8 MCHC 34.4 RDW 18.5 H Plt Count 275 Seg Neutrophils % Not Reportable Sodium 135.6 L Potassium 3.7 Chloride 94 L Carbon Dioxide 24 Anion Gap 18 BUN 90 H Creatinine 6.18 H Est GFR ( Amer) 11 L Glucose 114 H Calcium 8.6 Magnesium Total Bilirubin 3.5 H AST 276 H Alkaline Phosphatase 524 H Total Protein 6.1 L Albumin 2.8 L Lipase 64.1 TSH 12.00 H Urine Color Urine Appearance Urine pH Ur Specific [place] Urine Protein Urine Glucose (UA) Urine Ketones Urine Blood Urine Nitrite Ur Leukocyte Esterase Urine WBC (Auto) Urine RBC (Auto) 08/30/20 08/31/20 08/31/20 22:32 06:50 06:50 WBC 14.0 H RBC 3.17 L Hgb 10.2 L Hct 30.3 L MCV 96 MCH 32.3 MCHC 33.8 RDW 18.7 H Plt Count 239 Seg Neutrophils % Not Reportable Sodium 136.0 L Potassium 4.3 Chloride 95 L Carbon Dioxide 24 Anion Gap 17 BUN 97 H Creatinine 5.69 H Est GFR ( Amer) 12 L Glucose 100 Calcium 8.8 Magnesium 1.6 Total Bilirubin 3.8 H AST 249 H Alkaline Phosphatase 440 H Total Protein 6.2 L Albumin 2.7 L Lipase TSH Urine Color ISABELL Urine Appearance CLOUDY Urine pH 5.0 Ur Specific [place] 1.018 Urine Protein 30 H Urine Glucose (UA) NEGATIVE Urine Ketones NEGATIVE Urine Blood NEGATIVE Urine Nitrite NEGATIVE Ur Leukocyte Esterase NEGATIVE Urine WBC (Auto) 6 Urine RBC (Auto) 2 08/30/20 08/31/20 16:40 06:50 Troponin I < 0.012 NT-Pro-B Natriuret Pep 3560 H Impressions: Abdomen/Pelvis CT 08/30/20 00:00 IMPRESSION: Heterogeneous pattern in the liver which is strongly suspicious for multiple masses. Generalize moderate ascites. Findings very worrisome for metastatic disease. Chest X-Ray 08/30/20 16:23 IMPRESSION: Nonspecific parenchymal opacities left base. Venous Doppler Study 08/30/20 17:06 IMPRESSION: No acute DVT or SVT in either leg. 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 No hydronephrosis. Assessment & Plan - Diagnosis (1) Acute renal failure Qualifiers: Acute renal failure type: unspecified Qualified Code(s): N17.9 - Acute kidney failure, unspecified Is this a current diagnosis for this admission?: Yes Plan: Likely prerenal however patient now showing signs of fluid overload. Will start on dopamine drip along with Lasix infusion and follow-up. No indications for renal replacements at the moment even though that might be a possibility given his overall status. Discussed briefly with the patient. 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 Recent diagnosis. Being managed by Dr. [facility]. (3) Liver metastases Plan: From primary esophageal cancer. (4) Ascites Qualifiers: Ascites type: malignant Qualified Code(s): R18.0 - Malignant ascites Is this a current diagnosis for this admission?: Yes Plan: Probably secondary to liver disease/third spacing. No indications for paracentesis currently. Monitor. (5) Hypotension Qualifiers: Hypotension type: unspecified hypotension type Qualified Code(s): I95.9 - Hypotension, unspecified Is this a current diagnosis for this admission?: Yes Plan: Possibly combination of prerenal/third spacing. Monitor. No evidences of any cardiac dysfunction as per echocardiogram reported by Dr. Lopez from the previous hospital. Cardiology involved. No evidences of sepsis. Monitor. (6) Diastolic congestive heart failure Qualifiers: Heart failure chronicity: acute on chronic Qualified Code(s): I50.33 - Acute on chronic diastolic (congestive) heart failure Is this a current diagnosis for this admission?: Yes Plan: Follow-up on echocardiogram. (7) Atrial fibrillation Qualifiers: Atrial fibrillation type: unspecified chronic Qualified Code(s): I48.20 - Chronic atrial fibrillation, unspecified; I48.2 - Chronic atrial fibrillation Is this a current diagnosis for this admission?: Yes Plan: Paroxysmal. As per cardiology. (8) Type 2 diabetes mellitus Qualifiers: Diabetes mellitus terminal operations manager insulin use: without terminal operations manager use Chronic kidney disease stage: stage 4 (severe) Is this a current diagnosis for this admission?: Yes Plan: As per Dr. Garrido. (9) Hypothyroid Plan: New onset. Recommend starting a low-dose of thyroid replacements.
--- NOTE | 2020-08-31 12:10 | PDOC PROGRESS REPORT ---
Subjective Date:: 08/31/20 Subjective:: Patient was started on a dopamine drip and Lasix drip per nephrology currently d oisimone well Denied any chest pain no short of breath Patient still have a low urine output Reason For Visit: RENAL FAILUREP Physical Exam Vital Signs: Temp Pulse Resp BP Pulse Ox 97.6 F 104 H 16 105/68 94 08/31/20 10:48 08/31/20 11:34 08/31/20 10:48 08/31/20 11:00 08/31/20 09:16 Intake & Output 08/30/20 08/31/20 09/01/20 06:59 06:59 06:59 Intake Total 100 Balance 100 Weight 133.5 kg General appearance: PRESENT: no acute distress, well-developed, well-nourished Head exam: PRESENT: atraumatic, normocephalic Eye exam: PRESENT: conjunctiva pink, EOMI, PERRLA. ABSENT: scleral icterus Ear exam: PRESENT: normal external ear exam Mouth exam: PRESENT: moist, tongue midline Neck exam: PRESENT: full ROM. ABSENT: carotid bruit, JVD, lymphadenopathy, thyromegaly Respiratory exam: PRESENT: clear to auscultation darron Cardiovascular exam: PRESENT: RRR. ABSENT: diastolic murmur, rubs, systolic murmur Pulses: PRESENT: normal dorsalis pedis pul, +2 pedal pulses bilateral Vascular exam: PRESENT: normal capillary refill GI/Abdominal exam: PRESENT: ascites, distended, normal bowel sounds, soft. ABSENT: guarding, mass, organolmegaly, rebound, tenderness Rectal exam: PRESENT: deferred Neurological exam: PRESENT: alert, awake, oriented to person, oriented to place, oriented to time, oriented to situation, CN II-XII grossly intact. ABSENT: motor sensory deficit Psychiatric exam: PRESENT: appropriate affect, normal mood. ABSENT: homicidal ideation, suicidal ideation Skin exam: PRESENT: dry, intact, warm. ABSENT: cyanosis, rash Results Laboratory Results: 08/31/20 06:50 08/31/20 06:50 08/30/20 08/30/20 08/30/20 16:40 16:40 16:40 WBC 13.1 H RBC 3.35 L Hgb 11.0 L Hct 32.0 L MCV 96 MCH 32.8 MCHC 34.4 RDW 18.5 H Plt Count 275 Seg Neutrophils % Not Reportable Sodium 135.6 L Potassium 3.7 Chloride 94 L Carbon Dioxide 24 Anion Gap 18 BUN 90 H Creatinine 6.18 H Est GFR ( Amer) 11 L Glucose 114 H Calcium 8.6 Magnesium Total Bilirubin 3.5 H AST 276 H Alkaline Phosphatase 524 H Total Protein 6.1 L Albumin 2.8 L Lipase 64.1 TSH 12.00 H Urine Color Urine Appearance Urine pH Ur Specific [place] Urine Protein Urine Glucose (UA) Urine Ketones Urine Blood Urine Nitrite Ur Leukocyte Esterase Urine WBC (Auto) Urine RBC (Auto) 08/30/20 08/31/20 08/31/20 22:32 06:50 06:50 WBC 14.0 H RBC 3.17 L Hgb 10.2 L Hct 30.3 L MCV 96 MCH 32.3 MCHC 33.8 RDW 18.7 H Plt Count 239 Seg Neutrophils % Not Reportable Sodium 136.0 L Potassium 4.3 Chloride 95 L Carbon Dioxide 24 Anion Gap 17 BUN 97 H Creatinine 5.69 H Est GFR ( Amer) 12 L Glucose 100 Calcium 8.8 Magnesium 1.6 Total Bilirubin 3.8 H AST 249 H Alkaline Phosphatase 440 H Total Protein 6.2 L Albumin 2.7 L Lipase TSH Urine Color ISABELL Urine Appearance CLOUDY Urine pH 5.0 Ur Specific [place] 1.018 Urine Protein 30 H Urine Glucose (UA) NEGATIVE Urine Ketones NEGATIVE Urine Blood NEGATIVE Urine Nitrite NEGATIVE Ur Leukocyte Esterase NEGATIVE Urine WBC (Auto) 6 Urine RBC (Auto) 2 08/30/20 08/31/20 16:40 06:50 Troponin I < 0.012 NT-Pro-B Natriuret Pep 3560 H Impressions: Abdomen/Pelvis CT 08/30/20 00:00 IMPRESSION: Heterogeneous pattern in the liver which is strongly suspicious for multiple masses. Generalize moderate ascites. Findings very worrisome for metastatic disease. Chest X-Ray 08/30/20 16:23 IMPRESSION: Nonspecific parenchymal opacities left base. Venous Doppler Study 08/30/20 17:06 IMPRESSION: No acute DVT or SVT in either leg. 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 No hydronephrosis. Assessment & Plan - Diagnosis (1) Acute renal failure Qualifiers: Acute renal failure type: unspecified Qualified Code(s): N17.9 - Acute kidney failure, unspecified Is this a current diagnosis for this admission?: Yes Plan: Continues to current medications follow-up with the nephrology (2) Diastolic congestive heart failure Qualifiers: Heart failure chronicity: acute on chronic Qualified Code(s): I50.33 - Acute on chronic diastolic (congestive) heart failure Is this a current diagnosis for this admission?: Yes Plan: Continues on Lasix drip (3) Jaundice Is this a current diagnosis for this admission?: Yes Plan: We will stop the amiodarone (4) Atrial fibrillation Qualifiers: Atrial fibrillation type: unspecified chronic Qualified Code(s): I48.20 - Chronic atrial fibrillation, unspecified; I48.2 - Chronic atrial fibrillation Is this a current diagnosis for this admission?: Yes Plan: We hold the Xarelto discontinues the amiodarone due to the liver enzyme elevated and control the rate with the beta-sophia (5) Hypotension Qualifiers: Hypotension type: unspecified hypotension type Qualified Code(s): I95.9 - Hypotension, unspecified Is this a current diagnosis for this admission?: Yes (6) Protein malnutrition Is this a current diagnosis for this admission?: Yes (7) Ascites Qualifiers: Ascites type: malignant Qualified Code(s): R18.0 - Malignant ascites Is this a current diagnosis for this admission?: Yes (8) Esophageal cancer Qualifiers: Malignant neoplasm of esophagus location: lower third Qualified Code(s): 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 Is this a current diagnosis for this admission?: Yes (9) Abnormal TSH Is this a current diagnosis for this admission?: Yes Plan: Most likely from amiodarone side effect we will stop the amiodarone start the levothyroxine 25 mics daily - Time Time Spent with patient: 15-24 minutes Level of Care: IMCU Medications reviewed and adjusted accordingly: Yes Anticipated discharge: Home with Homehealth Anticipated DC Timeframe: Other - Plan Summary Plan Summary: Continues to current medications
[2020-08-31] MEDS ORDERED: ALBUTEROL SULFATE HFA (90 MCG/PUFF) 8 GM MDI (1 MDI/ER DISP) IH PRN (12:11)
[2020-08-31] MEDS ORDERED: GLUCAGON,HUMAN RECOMB 1 MG INJ IM PRN (12:12)
[2020-08-31] MEDS ORDERED: DEXTROSE 50%-WATER 25 GM/50 ML DISP.SYRIN IV PRN ×2 (12:12)
[2020-08-31] MEDS ORDERED: DEXTROSE 40% GEL 15 GM TUBE PO PRN ×2 (12:12)
[2020-08-31] MEDS ORDERED: NORMAL SALINE 250 ML with FUROSEMIDE 250 MG IV PRN ×2 (12:14)
[2020-08-31] MEDS ORDERED: ALBUTEROL SULFATE HFA (90 MCG/PUFF) 8 GM MDI IH PRN (12:42)
[2020-08-31] MEDS ORDERED: ALBUMIN HUMAN 12.5 GM/50 ML RTUINJ IV ONE ×2 (13:00→15:30)
[2020-08-31] MEDS: METOLAZONE 2.5 MG TABLET PO SCH (15:19)
[2020-08-31] MEDS: INSULIN LISPRO 100 UNIT/ML 3 ML VIAL SUBCUT SCH ×2 (18:17→22:21)
[2020-08-31] MEDS: CEFTRIAXONE 1 GM/D5W RTU 1 GM/50 ML RTUPB IV SCH (19:49)
[2020-08-31] MEDS ORDERED: DOPAMINE HCL 800 MG/D5W 250 ML IV PRN (21:16)
[2020-08-31] MEDS: ALBUMIN HUMAN 12.5 GM/50 ML RTUINJ IV SCH (21:22)
[2020-08-31] MEDS: PHARMACY COMMUNICATION ORDER MC SCH (22:23)
--- NOTE | 2020-08-31 22:24 | PDOC CONSULTATION ---
Consultation-Blank Consultation: CARDIOLOGY CONSULTATION by Dr. Mary Dobbs on 08/31/2020. Patient seen at 5 PM. 60 minutes spent with patient more than 50% time spent in direct patient care. REASON FOR CONSULTATION: Paroxysmal atrial fibrillation and heart failure. And leg edema CONSULT REQUESTING PHYSICIAN: Dr. Garrido HISTORY OF PRESENT ILLNESS: Past Medical History Cardiac Medical History: Reports: Atrial Fibrillation, Hyperlipidemia, Hypertension-primary Endocrine Medical History: Reports: Diabetes Mellitus Type 2 Malignancy Medical History: Reports: Other - Stage IV esophageal cancer Psychiatric Medical History: Reports: Depression Past Surgical History Past Surgical History: Reports: Other - Port placement, liver biopsy, EGD Social History Smoking Status: Former Smoker Cigarettes Packs Per Day: 1 Electronic Cigarette use?: No Number of Years Smokin Last Time Smoked: 2019 Frequency of Alcohol Use: None Hx Recreational Drug Use: No Hx Prescription Drug Abuse: No - Advance Directive Resuscitation Status: Full Code. The patient's daughter is his surrogate healthcare decision maker. Family History Parental Family History Reviewed: Yes - Negative for ESRD Children Family History Reviewed: No Sibling(s) Family History Reviewed.: No Medication/Allergy Home Medications: Albuterol Sulfate [Albuterol Sulfate Hfa] 2 puff IH Q6HP PRN 08/31/20 Albuterol Sulfate [Proair Hfa Inhalation Aerosol 8.5 gm Mdi] 1 puff IH Q6HP PRN 08/31/20 Dulaglutide [Trulicity] 0.75 mg SQ DAILY 08/31/20 Gabapentin [Neurontin 300 mg Capsule] 300 mg PO DAILY 08/31/20 Metformin HCl [Glucophage 500 mg Tablet] 500 mg PO DAILY 08/31/20 Omeprazole 20 mg PO DAILY 08/31/20 Rivaroxaban [Xarelto] 20 mg PO DAILY 08/31/20 Rosuvastatin Calcium 5 mg PO DAILY 08/31/20 Allergies/Adverse Reactions: No Known Allergies Allergy (Verified 08/30/20 15:57) Current Medications Generic Name Dose Route Start Last Admin Trade Name Freq PRN Reason Stop Dose Admin Albuterol 2 puff 08/31/20 12:42 Ventolin Hfa 8 Gm Mdi IH 09/30/20 12:41 Q6HP PRN SHORTNESS OF BREATH Dextrose 12.5 gm 08/31/20 12:12 Dextrose Inj 50% Syringe (25 Gm/50 Ml) IV 09/30/20 12:11 PRN PRN FOR BG 50-69 IN ALERT PATIENT Protocol Dextrose 25 gm 08/31/20 12:12 Dextrose Inj 50% Syringe (25 Gm/50 Ml) IV 09/30/20 12:11 PRN PRN PER PROTOCOL Protocol Gabapentin 300 mg 09/01/20 10:00 Neurontin 300 Mg Capsule PO 10/01/20 09:59 DAILY TYRONE Glucagon 1 mg 08/31/20 12:12 Glucagen Inj 1 Mg Vial IM 09/30/20 12:11 PRN PRN Evaluate for BG < 70 Protocol Glucose 15 gm 08/31/20 12:12 Glutose 40% Gel 15 Gm Tube PO 09/30/20 12:11 PRN PRN FOR BG 50-69 IN ALERT PATIENT Protocol Glucose 30 gm 08/31/20 12:12 Glutose 40% Gel 15 Gm Tube PO 09/30/20 12:11 PRN PRN FOR BG < 50 IN ALERT PATIENT Protocol Ceftriaxone Sodium/Dextrose 1 gm in 50 mls @ 100 mls/hr 08/30/20 18:30 08/31/20 19:49 Rocephin Rtu 1 Gm/D5w 50 Ml Premix IV 09/06/20 18:29 100 mls/hr QPM TYRONE 100 mls/hr Administration Furosemide 250 mg/ Sodium 250 mls @ 5 mls/hr 08/31/20 12:14 08/31/20 20:43 Chloride IV 09/29/20 18:29 5 mg/hr CONTINUOUS PRN 5 mls/hr THIS MED IS NOT "PRN" Administration 5 MG/HR Albumin Human 12.5 gm in 50 mls @ 50 mls/hr 08/31/20 22:00 08/31/20 21:22 Albuminar-25 Rtu Inj 12.5 Gm/50 Ml Premix IV 09/03/20 21:59 50 mls/hr Q8 TYRONE 50 mls/hr Administration Dopamine HCl/Dextrose 800 mg in 250 mls @ 10.013 mls/hr 08/31/20 21:17 Dopamine Rtu 800 Mg-D5w 250 Ml (Adult) Premix IV 09/30/20 21:16 CONTINUOUS PRN THIS MED IS NOT "PRN" Protocol 4 MCG/KG/MIN Insulin Human Lispro 0 - 12 unit 08/31/20 16:00 08/31/20 22:21 Humalog Insulin 100 Unit/1 Ml 3 Ml Vial SUBCUT 09/30/20 15:59 Not Given ACHS [facility] Protocol Levothyroxine Sodium 0.025 mg 09/01/20 06:00 Synthroid 0.025 Mg Tablet PO 10/01/20 05:59 Q6AM TYRONE Metolazone 2.5 mg 08/31/20 14:00 08/31/20 15:19 Zaroxolyn 2.5 Mg Tablet PO 09/30/20 13:59 2.5 mg DAILY [facility] Administration Ondansetron HCl 4 mg 08/30/20 18:05 Zofran Inj/Pf 4 Mg/2 Ml Sdv IV 09/29/20 18:04 Q4HP PRN FOR NAUSEA/VOMITING Pantoprazole Sodium 40 mg 08/31/20 06:00 08/31/20 18:[address] Tablet PO 09/30/20 05:59 40 mg BID@0600,1700 [facility] Administration Pharmacy Profile Note 1 each 08/31/20 18:00 08/31/20 22:23 Medication Communication Order 09/30/20 17:59 1 applic QPM [facility] Administration Discontinued Medications Generic Name Dose Route Start Last Admin Trade Name Freq PRN Reason Stop Dose Admin Sodium Chloride 500 mls @ 0 mls/hr 08/30/20 18:09 08/30/20 19:16 Nacl 0.9% 500 Ml Iv Soln IV 08/30/20 18:10 Not Given NOW ONE Wide Open Sodium Chloride 1,000 mls @ 75 mls/hr 08/30/20 18:14 Nacl 0.9% 1000 Ml Iv Soln IV 09/29/20 18:13 CONTINUOUS PRN THIS MED IS NOT "PRN" Albumin Human 12.5 gm in 50 mls @ 50 mls/hr 08/30/20 18:45 08/30/20 20:43 Albuminar-25 Rtu Inj 12.5 Gm/50 Ml Premix IV 08/30/20 19:44 Infused NOW ONE Infusion Dopamine HCl/Dextrose 400 mg in 250 mls @ 0 mls/hr 08/30/20 18:29 Dopamine Rtu 400 Mg-D5w 250 Ml (Nursery) IV 09/29/20 18:28 CONTINUOUS PRN THIS MED IS NOT "PRN" Protocol Titrate Furosemide 250 mg/ Sodium 250 mls @ 3 mls/hr 08/30/20 18:30 08/30/20 19:51 Chloride IV 09/29/20 18:29 3 mg/hr CONTINUOUS PRN 3 mls/hr THIS MED IS NOT "PRN" Administration 3 MG/HR Dopamine HCl/Dextrose 800 mg in 250 mls @ 6.258 mls/hr 08/30/20 18:56 0 19:42 Dopamine Rtu 800 Mg-D5w 250 Ml (Adult) Premix IV 09/29/20 18:55 2.5 mcg/kg/min CONTINUOUS PRN 6.26 mls/hr THIS MED IS NOT "PRN" Administration 2.5 MCG/KG/MIN Albumin Human 12.5 gm in 50 mls @ 50 mls/hr 08/31/20 13:00 08/31/20 15:45 Albuminar-25 Rtu Inj 12.5 Gm/50 Ml Premix IV 08/31/20 13:59 Infused NOW ONE Infusion Albumin Human 12.5 gm in 50 mls @ 50 mls/hr 08/31/20 15:30 08/31/20 15:24 Albuminar-25 Rtu Inj 12.5 Gm/50 Ml Premix IV 08/31/20 16:29 Not Given NOW ONE Lidocaine HCl 5 ml 08/30/20 22:49 08/30/20 22:52 Xylocaine 2% Uro-Jet 5 Ml Kit MM 08/30/20 22:50 5 ml NOW ONE Administration Review of Systems Constitutional: PRESENT: anorexia, fatigue, weakness, weight loss. ABSENT: chills, fever(s), headache(s), night sweats Nose, Mouth, and Throat: ABSENT: mouth pain, sore throat Cardiovascular: PRESENT: edema. ABSENT: chest pain, dyspnea on exertion, orthropnea Respiratory: ABSENT: cough, dyspnea, hemoptysis Gastrointestinal: PRESENT: abdominal pain - RUQ., dysphagia. ABSENT: diarrhea, heartburn, hematemesis, hematochezia, nausea, vomiting Genitourinary: ABSENT: difficulty urinating, dysuria, hematuria Musculoskeletal: ABSENT: deformity, joint swelling Integumentary: ABSENT: lesions, pruritus, rash Neurological: ABSENT: abnormal movements, abnormal speech, confusion, convulsions, focal weakness, frequent falls Hematologic/Lymphatic: ABSENT: easy bruising, lymphadenopathy Physical EXAMINATION: The patient is morbidly obese. Selected Entries 08/31/20 08/31/20 17:00 19:22 Temperature 98.0 F Pulse Rate [ 112 H Right Finger] Respiratory 18 Rate Blood Pressure 93/52 L [Right Upper Arm] Blood Pressure 65 Mean [Right Upper Arm] Blood Pressure Supine Position [Right Upper Arm] O2 Sat by Pulse 100 Oximetry Oxygen Delivery Room Air Method ( includes room air) Labs- Entire Visit 08/30/20 08/30/20 08/30/20 16:40 16:40 16:40 WBC 13.1 H RBC 3.35 L Hgb 11.0 L Hct 32.0 L MCV 96 MCH 32.8 MCHC 34.4 RDW 18.5 H Plt Count 275 Lymph % (Auto) Not Reportable [place] % (Auto) Not Reportable Eos % (Auto) Not Reportable Baso % (Auto) Not Reportable Absolute Neuts (auto) Not Reportable Absolute Lymphs (auto) Not Reportable Absolute Monos (auto) Not Reportable Absolute Eos (auto) Not Reportable Absolute Basos (auto) Not Reportable Total Counted 100 Seg Neutrophils % Not Reportable Seg Neuts % (Manual) 83 H Band Neutrophils % 1 L Lymphocytes % (Manual) 11 L Atypical Lymphs % Monocytes % (Manual) 4 Eosinophils % (Manual) 1 Basophils % (Manual) 0 Metamyelocytes % Abs Neuts (Manual) 11.0 H Abs Lymphs (Manual) 1.4 Abs Monocytes (Manual) 0.5 Absolute Eos (Manual) 0.1 Abs Basophils (Manual) 0.0 Platelet Comment ADEQUATE Polychromasia SLIGHT Poikilocytosis 1+ Anisocytosis 2+ Target Cells 1+ [place] Cells Sodium 135.6 L Potassium 3.7 Chloride 94 L Carbon Dioxide 24 Anion Gap 18 BUN 90 H Creatinine 6.18 H Est GFR ( Amer) 11 L Est GFR (MDRD) Non-Af 9 L Glucose 114 H POC Glucose Calcium 8.6 Magnesium Total Bilirubin 3.5 H Direct Bilirubin 2.8 H Neonat Total Bilirubin Not Reportable Neonat Direct Bilirubin Not Reportable Neonat Indirect Bili Not Reportable AST 276 H ALT 36 Alkaline Phosphatase 524 H Troponin I < 0.012 NT-Pro-B Natriuret Pep Total Protein 6.1 L Albumin 2.8 L Lipase 64.1 TSH Urine Color Urine Appearance Urine pH Ur Specific [place] Urine Protein Urine Glucose (UA) Urine Ketones Urine Blood Urine Nitrite Urine Bilirubin Urine Urobilinogen Ur Leukocyte Esterase Urine WBC (Auto) Urine RBC (Auto) U Hyaline Cast (Auto) Urine Bacteria (Auto) Squamous Epi Cells Auto Urine Mucus (Auto) Urine Ascorbic Acid 08/30/20 08/30/20 08/31/20 16:40 22:32 06:50 WBC 14.0 H RBC 3.17 L Hgb 10.2 L Hct 30.3 L MCV 96 MCH 32.3 MCHC 33.8 RDW 18.7 H Plt Count 239 Lymph % (Auto) Not Reportable [place] % (Auto) Not Reportable Eos % (Auto) Not Reportable Baso % (Auto) Not Reportable Absolute Neuts (auto) Not Reportable Absolute Lymphs (auto) Not Reportable Absolute Monos (auto) Not Reportable Absolute Eos (auto) Not Reportable Absolute Basos (auto) Not Reportable Total Counted 100 Seg Neutrophils % Not Reportable Seg Neuts % (Manual) 80 H Band Neutrophils % 1 L Lymphocytes % (Manual) 12 L Atypical Lymphs % 1 Monocytes % (Manual) 5 Eosinophils % (Manual) 0 Basophils % (Manual) 0 Metamyelocytes % 1 Abs Neuts (Manual) 11.5 H Abs Lymphs (Manual) 1.8 Abs Monocytes (Manual) 0.7 Absolute Eos (Manual) 0.0 Abs Basophils (Manual) 0.0 Platelet Comment ADEQUATE Polychromasia Poikilocytosis 1+ Anisocytosis 2+ Target Cells 1+ [place] Cells 1+ Sodium Potassium Chloride Carbon Dioxide Anion Gap BUN Creatinine Est GFR ( Amer) Est GFR (MDRD) Non-Af Glucose POC Glucose Calcium Magnesium Total Bilirubin Direct Bilirubin Neonat Total Bilirubin Neonat Direct Bilirubin Neonat Indirect Bili AST ALT Alkaline Phosphatase Troponin I NT-Pro-B Natriuret Pep Total Protein Albumin Lipase TSH 12.00 H Urine Color ISABELL Urine Appearance CLOUDY Urine pH 5.0 Ur Specific [place] 1.018 Urine Protein 30 H Urine Glucose (UA) NEGATIVE Urine Ketones NEGATIVE Urine Blood NEGATIVE Urine Nitrite NEGATIVE Urine Bilirubin SMALL H Urine Urobilinogen 4.0 H Ur Leukocyte Esterase NEGATIVE Urine WBC (Auto) 6 Urine RBC (Auto) 2 U Hyaline Cast (Auto) 2 Urine Bacteria (Auto) TRACE Squamous Epi Cells Auto <1 Urine Mucus (Auto) RARE Urine Ascorbic Acid NEGATIVE 08/31/20 08/31/20 08/31/20 06:50 06:50 21:20 WBC RBC Hgb Hct MCV MCH MCHC RDW Plt Count Lymph % (Auto) [place] % (Auto) Eos % (Auto) Baso % (Auto) Absolute Neuts (auto) Absolute Lymphs (auto) Absolute Monos (auto) Absolute Eos (auto) Absolute Basos (auto) Total Counted Seg Neutrophils % Seg Neuts % (Manual) Band Neutrophils % Lymphocytes % (Manual) Atypical Lymphs % Monocytes % (Manual) Eosinophils % (Manual) Basophils % (Manual) Metamyelocytes % Abs Neuts (Manual) Abs Lymphs (Manual) Abs Monocytes (Manual) Absolute Eos (Manual) Abs Basophils (Manual) Platelet Comment Polychromasia Poikilocytosis Anisocytosis Target Cells [place] Cells Sodium 136.0 L Potassium 4.3 Chloride 95 L Carbon Dioxide 24 Anion Gap 17 BUN 97 H Creatinine 5.69 H Est GFR ( Amer) 12 L Est GFR (MDRD) Non-Af 10 L Glucose 100 POC Glucose 149 H Calcium 8.8 Magnesium 1.6 Total Bilirubin 3.8 H Direct Bilirubin 3.0 H Neonat Total Bilirubin Not Reportable Neonat Direct Bilirubin Not Reportable Neonat Indirect Bili Not Reportable AST 249 H ALT 33 Alkaline Phosphatase 440 H Troponin I NT-Pro-B Natriuret Pep 3560 H Total Protein 6.2 L Albumin 2.7 L Lipase TSH Urine Color Urine Appearance Urine pH Ur Specific [place] Urine Protein Urine Glucose (UA) Urine Ketones Urine Blood Urine Nitrite Urine Bilirubin Urine Urobilinogen Ur Leukocyte Esterase Urine WBC (Auto) Urine RBC (Auto) U Hyaline Cast (Auto) Urine Bacteria (Auto) Squamous Epi Cells Auto Urine Mucus (Auto) Urine Ascorbic Acid Abdomen/Pelvis CT 08/30/20 00:00 IMPRESSION: Heterogeneous pattern in the liver which is strongly suspicious for multiple masses. Generalize moderate ascites. Findings very worrisome for metastatic disease. Chest X-Ray 08/30/20 16:23 IMPRESSION: Nonspecific parenchymal opacities left base. Venous Doppler Study 08/30/20 17:06 IMPRESSION: No acute DVT or SVT in either leg. 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 No hydronephrosis. IMPRESSION/RECOMMENDATION:
[2020-09-01] MEDS: DOPAMINE HCL 800 MG/D5W 250 ML IV PRN (03:43)
[2020-09-01] MEDS: PANTOPRAZOLE SODIUM 40 MG TABLET.DR PO SCH ×2 (05:08→17:32)
[2020-09-01] MEDS: ALBUMIN HUMAN 12.5 GM/50 ML RTUINJ IV SCH ×3 (05:08→21:51)
[2020-09-01] MEDS: LEVOTHYROXINE SODIUM 0.025 MG TABLET PO SCH (05:15)
[2020-09-01 06:13] LABS: ANION GAP 18 (5-19); BLOOD UREA NITROGEN 97 mg/dL (7-20); CALCIUM 8.8 mg/dL (8.4-10.2); CARBON DIOXIDE 25 mmol/L (22-30); CHLORIDE 93 mmol/L (98-107); CREATINE KINASE 207 U/L (55-170); GLUCOSE 125 mg/dL (75-110); POTASSIUM 4.1 mmol/L (3.6-5.0)
[2020-09-01 06:16] LABS: PARTIAL THROMBOPLASTIN TIME 39.2 SEC (23.5-35.8)
[2020-09-01 06:17] LABS: HEMATOCRIT 29.5 % (37.9-51.0); MEAN CORPUSCULAR HGB CONC 33.8 g/dL (32.0-36.0); MEAN CORPUSCULAR VOLUME 95 fl (80-97); PLATELET COUNT 236 10^3/uL (150-450); RED BLOOD COUNT 3.12 10^6/uL (4.35-5.55); RED CELL DISTRIBUTION WIDTH 19.3 % (11.5-14.0); WHITE BLOOD COUNT 12.8 10^3/uL (4.0-10.5)
[2020-09-01 06:54] LABS: ABSOLUTE LYMPHOCYTES# (MANUAL) 0.8 10^3/uL (0.5-4.7); ABSOLUTE MONOCYTES # (MANUAL) 0.8 10^3/uL (0.1-1.4); ANISOCYTOSIS 2+; BASOPHILS % (MANUAL) 0 % (0-2); EOSINOPHILS % (MANUAL) 1 % (0-6); LYMPHOCYTES % (MANUAL) 6 % (13-45); MONOCYTES % (MANUAL) 6 % (3-13); POIKILOCYTOSIS SLIGHT; SEGMENTED NEUTROPHILS % (MAN) 87 % (42-78); TOTAL CELLS COUNTED 100; TOXIC GRANULATION SLIGHT
[2020-09-01 06:55] LABS: PLATELET COMMENT ADEQUATE
--- NOTE | 2020-09-01 07:57 | PDOC PROGRESS REPORT ---
Subjective Date:: 09/01/20 Subjective:: Pt feels ok this am but cr increased again. spoke w/ Dr. montano who notes dialysis maybe needed but pt did put out about 500ml urine so may recover over time. Reason For Visit: RENAL FAILUREP Physical Exam Vital Signs: Temp Pulse Resp BP Pulse Ox 97.8 F 93 16 90/54 L 97 09/01/20 03:41 09/01/20 06:00 09/01/20 03:41 09/01/20 06:00 09/01/20 03:41 Intake & Output 08/31/20 09/01/20 09/02/20 06:59 06:59 06:59 Intake Total 100 350 Output Total 500 Balance 100 -150 Weight 133.5 kg 135.1 kg General appearance: PRESENT: no acute distress, well-developed, well-nourished Head exam: PRESENT: atraumatic, normocephalic Eye exam: PRESENT: conjunctiva pink, EOMI, PERRLA. ABSENT: scleral icterus Ear exam: PRESENT: normal external ear exam Mouth exam: PRESENT: moist, tongue midline Neck exam: ABSENT: carotid bruit, JVD, lymphadenopathy, thyromegaly Respiratory exam: PRESENT: clear to auscultation darron. ABSENT: rales, rhonchi, wheezes Cardiovascular exam: PRESENT: RRR. ABSENT: diastolic murmur, rubs, systolic murmur Pulses: PRESENT: normal dorsalis pedis pul Vascular exam: PRESENT: normal capillary refill GI/Abdominal exam: PRESENT: normal bowel sounds, soft. ABSENT: distended, guarding, mass, organolmegaly, rebound, tenderness Rectal exam: PRESENT: deferred Extremities exam: PRESENT: full ROM. ABSENT: calf tenderness, clubbing, pedal edema Neurological exam: PRESENT: alert, awake, oriented to person, oriented to place, oriented to time, oriented to situation, CN II-XII grossly intact. ABSENT: motor sensory deficit Psychiatric exam: PRESENT: appropriate affect, normal mood. ABSENT: homicidal ideation, suicidal ideation Skin exam: PRESENT: dry, intact, warm. ABSENT: cyanosis, rash Results Laboratory Results: 09/01/20 05:45 09/01/20 05:45 08/31/20 09/01/20 09/01/20 06:50 05:45 05:45 WBC 14.0 H 12.8 H RBC 3.17 L 3.12 L Hgb 10.2 L 10.0 L Hct 30.3 L 29.5 L MCV 96 95 MCH 32.3 32.0 MCHC 33.8 33.8 RDW 18.7 H 19.3 H Plt Count 239 236 Seg Neutrophils % Not Reportable Not Reportable Sodium 135.7 L Potassium 4.1 Chloride 93 L Carbon Dioxide 25 Anion Gap 18 BUN 97 H Creatinine 6.70 H Est GFR ( Amer) 10 L Glucose 125 H Calcium 8.8 Magnesium 1.5 L 08/30/20 08/31/20 09/01/20 16:40 06:50 05:45 Creatine Kinase 207 H Troponin I < 0.012 NT-Pro-B Natriuret Pep 3560 H 09/01/20 05:45 Creatine Kinase Troponin I NT-Pro-B Natriuret Pep 4810 H Impressions: Abdomen/Pelvis CT 08/30/20 00:00 IMPRESSION: Heterogeneous pattern in the liver which is strongly suspicious for multiple masses. Generalize moderate ascites. Findings very worrisome for metastatic disease. Chest X-Ray 08/30/20 16:23 IMPRESSION: Nonspecific parenchymal opacities left base. Venous Doppler Study 08/30/20 17:06 IMPRESSION: No acute DVT or SVT in either leg. 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 No hydronephrosis. Assessment & Plan - Diagnosis (1) Esophageal cancer Qualifiers: Malignant neoplasm of esophagus location: lower third Qualified Code(s): 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 Is this a current diagnosis for this admission?: Yes Plan: NO rx until renal fxn improves but otherwise pt would like to try to treat. (2) Acute renal failure Qualifiers: Acute renal failure type: unspecified Qualified Code(s): N17.9 - Acute kidney failure, unspecified Is this a current diagnosis for this admission?: Yes Plan: severe, followed by Dr. montano and misbah. - Time Time Spent with patient: 25-34 minutes
[2020-09-01] MEDS: INSULIN LISPRO 100 UNIT/ML 3 ML VIAL SUBCUT SCH ×4 (08:03→21:51)
[2020-09-01 08:13] LABS: URINE CREATININE 162.4 mg/dL (22-328)
--- NOTE | 2020-09-01 09:36 | PDOC PROGRESS REPORT ---
Subjective Date:: 09/01/20 Subjective:: Patient is currently doing same Patient's denied any chest pain no short of breath Urine output is very low Cussed with the nephrology suggest the continues the current medications no need for any renal replacement therapy right now Reason For Visit: RENAL FAILUREP Physical Exam Vital Signs: Temp Pulse Resp BP Pulse Ox 97.8 F 105 H 16 117/65 97 09/01/20 03:41 09/01/20 07:27 09/01/20 03:41 09/01/20 07:27 09/01/20 03:41 Intake & Output 08/31/20 09/01/20 09/02/20 06:59 06:59 06:59 Intake Total 100 350 Output Total 500 Balance 100 -150 Weight 133.5 kg 135.1 kg General appearance: PRESENT: no acute distress, well-developed, well-nourished Mouth exam: PRESENT: neck supple Respiratory exam: PRESENT: clear to auscultation darron Cardiovascular exam: PRESENT: +S1, +S2 GI/Abdominal exam: PRESENT: ascites, normal bowel sounds, soft Extremities exam: PRESENT: pedal edema Neurological exam: PRESENT: alert, awake, oriented to person, oriented to place, oriented to time, oriented to situation, reflexes normal, CN II-XII grossly intact Skin exam: PRESENT: dry Results Laboratory Results: 09/01/20 05:45 09/01/20 05:45 09/01/20 09/01/20 05:45 05:45 WBC 12.8 H RBC 3.12 L Hgb 10.0 L Hct 29.5 L MCV 95 MCH 32.0 MCHC 33.8 RDW 19.3 H Plt Count 236 Seg Neutrophils % Not Reportable Sodium 135.7 L Potassium 4.1 Chloride 93 L Carbon Dioxide 25 Anion Gap 18 BUN 97 H Creatinine 6.70 H Est GFR ( Amer) 10 L Glucose 125 H Calcium 8.8 Magnesium 1.5 L 08/30/20 08/31/20 09/01/20 16:40 06:50 05:45 Creatine Kinase 207 H Troponin I < 0.012 NT-Pro-B Natriuret Pep 3560 H 09/01/20 05:45 Creatine Kinase Troponin I NT-Pro-B Natriuret Pep 4810 H Impressions: Abdomen/Pelvis CT 08/30/20 00:00 IMPRESSION: Heterogeneous pattern in the liver which is strongly suspicious for multiple masses. Generalize moderate ascites. Findings very worrisome for metastatic disease. Chest X-Ray 08/30/20 16:23 IMPRESSION: Nonspecific parenchymal opacities left base. Venous Doppler Study 08/30/20 17:06 IMPRESSION: No acute DVT or SVT in either leg. 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 No hydronephrosis. Assessment & Plan - Diagnosis (1) Acute renal failure Qualifiers: Acute renal failure type: unspecified Qualified Code(s): N17.9 - Acute kidney failure, unspecified Is this a current diagnosis for this admission?: Yes Plan: severe, followed by Dr. montano and misbah. (2) Diastolic congestive heart failure Qualifiers: Heart failure chronicity: acute on chronic Qualified Code(s): I50.33 - Ac maggie on chronic diastolic (congestive) heart failure Is this a current diagnosis for this admission?: Yes Plan: Currently follow with the Dr. RANDALL (3) Jaundice Is this a current diagnosis for this admission?: Yes (4) Atrial fibrillation Qualifiers: Atrial fibrillation type: unspecified chronic Qualified Code(s): I48.20 - Chronic atrial fibrillation, unspecified; I48.2 - Chronic atrial fibrillation Is this a current diagnosis for this admission?: Yes (5) Hypotension Qualifiers: Hypotension type: unspecified hypotension type Qualified Code(s): I95.9 - Hypotension, unspecified Is this a current diagnosis for this admission?: Yes Plan: Patient is need to adjust the dopamine drip yesterday because of the low blood pressures (6) Protein malnutrition Is this a current diagnosis for this admission?: Yes Plan: Patient is receiving the IV Albumin (7) Ascites Qualifiers: Ascites type: malignant Qualified Code(s): R18.0 - Malignant ascites Is this a current diagnosis for this admission?: Yes (8) Esophageal cancer Qualifiers: Malignant neoplasm of esophagus location: lower third Qualified Code(s): 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 Is this a current diagnosis for this admission?: Yes Plan: NO rx until renal fxn improves but otherwise pt would like to try to treat. (9) Abnormal TSH Is this a current diagnosis for this admission?: Yes (10) Type 2 diabetes mellitus Qualifiers: Diabetes mellitus fdc insulin use: without ocean transportation intermediary use Chronic kidney disease stage: stage 4 (severe) Is this a current diagnosis for this admission?: Yes - Time Time Spent with patient: 15-24 minutes Level of Care: IMCU Medications reviewed and adjusted accordingly: Yes Anticipated discharge: Home with Homehealth Anticipated DC Timeframe: Other - Plan Summary Plan Summary: Discussed with the patient and the daughter regarding the patient's current conditions patient is currently does not acutely need a renal replacement therapy continues follow-up with the nephrology and cardiology continues IV albumin
[2020-09-01] MEDS: GABAPENTIN 300 MG CAPSULE PO SCH (10:14)
[2020-09-01] MEDS: METOLAZONE 2.5 MG TABLET PO SCH (10:14)
[2020-09-01] MEDS ORDERED: NORMAL SALINE 200 ML IV PRN (10:22)
[2020-09-01] MEDS ORDERED: NORMAL SALINE 1000 ML 1,000 ML IV PRN (10:23)
[2020-09-01] MEDS ORDERED: NORMAL SALINE 250 ML with FUROSEMIDE 250 MG IV PRN ×2 (10:31)
--- NOTE | 2020-09-01 10:47 | PDOC PROGRESS REPORT ---
Subjective Date:: 09/01/20 Reason For Visit: Patient seen today in the hospital. He is generally feeling about the same as it was yesterday. He denies history of chest pain or shortness of breath. No history of any fever or chills. No abdominal pains other than the persistent right upper quadrant pain. Labs and medications were reviewed that shows some worsening of his creatinine. However he has made 500 cc of urine since yesterday. Vital signs shows that he is rather relatively hypotensive with systolics in the [address] I note that Dr[address] Dobbs/cardiology had increased his dopamine dosing. Physical Exam Vital Signs: Temp Pulse Resp BP Pulse Ox 97.8 F 105 H 16 117/65 97 09/01/20 03:41 09/01/20 07:27 09/01/20 03:41 09/01/20 07:27 09/01/20 03:41 Intake & Output 08/31/20 09/01/20 09/02/20 06:59 06:59 06:59 Intake Total 100 350 50 Output Total 500 Balance 100 -150 50 Weight 133.5 kg 135.1 kg General appearance: PRESENT: no acute distress Respiratory exam: PRESENT: clear to auscultation darron, decreased breath sounds. ABSENT: crackles Cardiovascular exam: PRESENT: +S1, +S2 GI/Abdominal exam: PRESENT: ascites, distended, organomegaly, soft, tenderness - RUQ. ABSENT: firm, guarding, normal bowel sounds Extremities exam: PRESENT: pedal edema Neurological exam: PRESENT: alert, awake, oriented to person, oriented to place Psychiatric exam: PRESENT: appropriate affect Skin exam: ABSENT: erythema, mottled, rash Results Laboratory Results: 09/01/20 05:45 09/01/20 05:45 09/01/20 09/01/20 05:45 05:45 WBC 12.8 H RBC 3.12 L Hgb 10.0 L Hct 29.5 L MCV 95 MCH 32.0 MCHC 33.8 RDW 19.3 H Plt Count 236 Seg Neutrophils % Not Reportable Sodium 135.7 L Potassium 4.1 Chloride 93 L Carbon Dioxide 25 Anion Gap 18 BUN 97 H Creatinine 6.70 H Est GFR ( Amer) 10 L Glucose 125 H Calcium 8.8 Magnesium 1.5 L 11/11/20 11/12/20 11/13/20 16:40 06:50 05:45 Creatine Kinase 207 H Troponin I < 0.012 NT-Pro-B Natriuret Pep 3560 H 09/01/20 05:45 Creatine Kinase Troponin I NT-Pro-B Natriuret Pep 4810 H Impressions: Abdomen/Pelvis CT 08/30/20 00:00 IMPRESSION: Heterogeneous pattern in the liver which is strongly suspicious for multiple masses. Generalize moderate ascites. Findings very worrisome for metastatic disease. Chest X-Ray 08/30/20 16:23 IMPRESSION: Nonspecific parenchymal opacities left base. Venous Doppler Study 08/30/20 17:06 IMPRESSION: No acute DVT or SVT in either leg. 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 No hydronephrosis. Assessment & Plan - Diagnosis (1) Acute renal failure Qualifiers: Acute renal failure type: unspecified Qualified Code(s): N17.9 - Acute kidney failure, unspecified Is this a current diagnosis for this admission?: Yes Plan: Currently nonoliguric. Today the patient shows more features suggestive of volume depletion. Therefore I am going give him a small dose of bolus normal saline followed by continuous saline over the next 6 hours and at the same time cut back on his Lasix infusion. See if that will help with his blood pressure which I think once it is normotensive should help with his recovery of his renal function. His fractional excretion of his sodium was only 1.1 thereby more indicative of prerenal than ATN. Right now there is no indications for renal replacement. However that could business change manager the next 2 to 3 days. Monitor closely. Discussed with Dr. Dobbs/Dr. Lopez/Dr. Garrido. 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 Recent diagnosis. Being managed by Dr. Lopez/[facility] oncologist. (3) Liver metastases Plan: From primary esophageal cancer. (4) Ascites Qualifiers: Ascites type: malignant Qualified Code(s): R18.0 - Malignant ascites Is this a current diagnosis for this admission?: Yes Plan: Probably secondary to liver disease/third spacing. No indications for paracentesis currently. Monitor. (5) Hypotension Qualifiers: Hypotension type: unspecified hypotension type Qualified Code(s): I95.9 - Hypotension, unspecified Is this a current diagnosis for this admission?: Yes Plan: Possibly combination of prerenal/third spacing. Monitor. No evidences of any cardiac dysfunction as per echocardiogram reported by Dr. Lopez from the previous hospital. Cardiology involved. No evidences of sepsis. Starting on IV fluids at the expense of IV Lasix. Monitor. (6) Diastolic congestive heart failure Qualifiers: Heart failure chronicity: acute on chronic Qualified Code(s): I50.33 - Acute on chronic diastolic (congestive) heart failure Is this a current diagnosis for this admission?: Yes Plan: Follow-up on echocardiogram. (7) Atrial fibrillation Qualifiers: Atrial fibrillation type: unspecified chronic Qualified Code(s): I48.20 - Chronic atrial fibrillation, unspecified; I48.2 - Chronic atrial fibrillation Is this a current diagnosis for this admission?: Yes Plan: Paroxysmal. As per cardiology. (8) Type 2 diabetes mellitus Qualifiers: Diabetes mellitus penitentiary insulin use: without penitentiary use Chronic kidney disease stage: stage 4 (severe) Is this a current diagnosis for this admission?: Yes Plan: As per Dr. Garrido. (9) Hypothyroid Plan: New onset. Recommend starting a low-dose of thyroid replacements. (10) Abnormal prothrombin time (PT) Plan: Likely from his abnormal liver functions. Monitor.
--- NOTE | 2020-09-01 10:58 | CDI QUERY ---
CDI Query CDI Review: Dear Provider, Please further specify and document in progress notes and D/C summary, "malnutrition" noted in record. MILD MODERATE SEVERE Clinical data: protein-calorie malnutrition SHEEBA CHF ALBUMIN IV METS CANCER Thanks, Tamie Whitman, [facility] [phone]
[2020-09-01 14:42] LABS: ANION GAP 17 (5-19); BLOOD UREA NITROGEN 97 mg/dL (7-20); CALCIUM 8.8 mg/dL (8.4-10.2); CARBON DIOXIDE 25 mmol/L (22-30); CHLORIDE 93 mmol/L (98-107); GLUCOSE 114 mg/dL (75-110); POTASSIUM 4.1 mmol/L (3.6-5.0)
[2020-09-01] MEDS: CEFTRIAXONE 1 GM/D5W RTU 1 GM/50 ML RTUPB IV SCH (17:32)
[2020-09-01] MEDS: PHARMACY COMMUNICATION ORDER MC SCH (18:35)
--- NOTE | 2020-09-01 19:56 | Progress Note ---
Provider Note Provider Note: CARDIOLOGY PROGRESS NOTE by Dr. Mary Dobbs on 09/01/2020. Subjective: The patient was seen in the morning and again in the evening. He denies any chest pain or discomfort. There is mild shortness of breath, which he states is his baseline secondary to COPD.. There is no PND orthopnea. His leg edema is the same. He appears to be volume depleted. He states that when his port is flushed he gets pain in the chest and the back of the leg and palpitations. When the nurse flushed there was no palpitations. Later in the evening he had a short run of few beats of atrial flutter which converted spontaneously to sinus rhythm. After discussions with nephrology the patient's Lasix drip has been discontinued and patient placed on IV fluids. The patient is echocardiogram the report of which is below shows that the pumping function of the heart is normal there is normal diastolic function and there is no significant pulmonary hypertension. The patient denies any anginal symptoms. There is no recurrent sustained atrial fibrillation or flutter. There is no ventricle arrhythmia seen on the monitor. He still requires dopamine at 5 mcg/kg/min to keep his blood pressure up. PHYSICAL EXAMINATION: The patient is morbidly obese. At present in no acute distress. Selected Entries 09/01/20 19:35 Temperature 97.9 F Temperature Oral Source Pulse Rate 107 H Blood Pressure 119/68 Blood Pressure 85 Mean BP Location Left Arm BP Position Supine O2 Sat by Pulse 98 Oximetry Oxygen Delivery Room Air Method Head: Is atraumatic normocephalic. EYES: Pupils are equal round regular reactive to light and accommodation. Extraocular movements are normal. There is no conjunctival pallor. There is no scleral icterus. EARS: Tympanic membranes are intact. External auditory canals clear. NOSE: There is no deviated nasal septum. There is no inflammation nasal mucous membrane. MOUTH: Mucous membranes of mouth are dry tongue is dry there is no ulcers there is no bleeding from the gums. Throat: There is no redness of the oropharynx. There is no exudates. SKIN: There is no skin rashes. There is no petechia or ecchymosis. NECK: Supple. There is no JVD. Carotids are equal there is no bruit there is no lymphadenopathy there is no goiter. LUNGS: There is no accessory muscle respiration in use. Trachea central. Lungs: Shows slightly decreased air entry bilaterally without any rhonchi rales or wheezing. There is slightly increased expiration. HEART: S1-S2 is heard. There is no S3 gallop. There is no S4 gallop. There is systolic murmur left sternal border and the apex with no radiation. There is no rub. ABDOMEN: Soft. There is nontender. There is no hepatosplenomegaly. Bowel sounds are well heard. Abdomen is obese. Upper extremities: Femorals are deep. There is no femoral bruits. Leg pulses are difficult to palpate. There is 1+ to 2 - pedal edema bilaterally. There is no DVT or cellulitis. There is no cyanosis or clubbing. MEDICAL ASSEMBLER: The patient is conscious awake alert oriented x3 with no focal deficit. Psychiatric: The patient judgment insight are intact. And affect is normal. Labs- All tests 24 hr 08/31/20 08/31/20 09/01/20 11:49 17:52 05:45 WBC RBC Hgb Hct MCV MCH MCHC RDW Plt Count Lymph % (Auto) [place] % (Auto) Eos % (Auto) Baso % (Auto) Absolute Neuts (auto) Absolute Lymphs (auto) Absolute Monos (auto) Absolute Eos (auto) Absolute Basos (auto) Total Counted Seg Neutrophils % Seg Neuts % (Manual) Lymphocytes % (Manual) Monocytes % (Manual) Eosinophils % (Manual) Basophils % (Manual) Abs Neuts (Manual) Abs Lymphs (Manual) Abs Monocytes (Manual) Absolute Eos (Manual) Abs Basophils (Manual) Toxic Granulation Platelet Comment Poikilocytosis Anisocytosis PT 21.0 H INR 1.80 APTT 39.2 H Sodium Potassium Chloride Carbon Dioxide Anion Gap BUN Creatinine Est GFR ( Amer) Est GFR (MDRD) Non-Af Glucose POC Glucose 134 H 135 H Calcium Magnesium Creatine Kinase NT-Pro-B Natriuret Pep Urine Creatinine Urine Sodium 09/01/20 09/01/20 09/01/20 05:45 05:45 05:45 WBC 12.8 H RBC 3.12 L Hgb 10.0 L Hct 29.5 L MCV 95 MCH 32.0 MCHC 33.8 RDW 19.3 H Plt Count 236 Lymph % (Auto) Not Reportable [place] % (Auto) Not Reportable Eos % (Auto) Not Reportable Baso % (Auto) Not Reportable Absolute Neuts (auto) Not Reportable Absolute Lymphs (auto) Not Reportable Absolute Monos (auto) Not Reportable Absolute Eos (auto) Not Reportable Absolute Basos (auto) Not Reportable Total Counted 100 Seg Neutrophils % Not Reportable Seg Neuts % (Manual) 87 H Lymphocytes % (Manual) 6 L Monocytes % (Manual) 6 Eosinophils % (Manual) 1 Basophils % (Manual) 0 Abs Neuts (Manual) 11.1 H Abs Lymphs (Manual) 0.8 Abs Monocytes (Manual) 0.8 Absolute Eos (Manual) 0.1 Abs Basophils (Manual) 0.0 Toxic Granulation SLIGHT Platelet Comment ADEQUATE Poikilocytosis SLIGHT Anisocytosis 2+ PT INR APTT Sodium 135.7 L Potassium 4.1 Chloride 93 L Carbon Dioxide 25 Anion Gap 18 BUN 97 H Creatinine 6.70 H Est GFR ( Amer) 10 L Est GFR (MDRD) Non-Af 8 L Glucose 125 H POC Glucose Calcium 8.8 Magnesium 1.5 L Creatine Kinase 207 H NT-Pro-B Natriuret Pep 4810 H Urine Creatinine Urine Sodium 09/01/20 09/01/20 09/01/20 06:18 07:28 12:29 WBC RBC Hgb Hct MCV MCH MCHC RDW Plt Count Lymph % (Auto) [place] % (Auto) Eos % (Auto) Baso % (Auto) Absolute Neuts (auto) Absolute Lymphs (auto) Absolute Monos (auto) Absolute Eos (auto) Absolute Basos (auto) Total Counted Seg Neutrophils % Seg Neuts % (Manual) Lymphocytes % (Manual) Monocytes % (Manual) Eosinophils % (Manual) Basophils % (Manual) Abs Neuts (Manual) Abs Lymphs (Manual) Abs Monocytes (Manual) Absolute Eos (Manual) Abs Basophils (Manual) Toxic Granulation Platelet Comment Poikilocytosis Anisocytosis PT INR APTT Sodium Potassium Chloride Carbon Dioxide Anion Gap BUN Creatinine Est GFR ( Amer) Est GFR (MDRD) Non-Af Glucose POC Glucose 119 H 121 H Calcium Magnesium Creatine Kinase NT-Pro-B Natriuret Pep Urine Creatinine 162.4 Urine Sodium 37 09/01/20 09/01/20 09/01/20 13:34 15:44 21:09 WBC RBC Hgb Hct MCV MCH MCHC RDW Plt Count Lymph % (Auto) [place] % (Auto) Eos % (Auto) Baso % (Auto) Absolute Neuts (auto) Absolute Lymphs (auto) Absolute Monos (auto) Absolute Eos (auto) Absolute Basos (auto) Total Counted Seg Neutrophils % Seg Neuts % (Manual) Lymphocytes % (Manual) Monocytes % (Manual) Eosinophils % (Manual) Basophils % (Manual) Abs Neuts (Manual) Abs Lymphs (Manual) Abs Monocytes (Manual) Absolute Eos (Manual) Abs Basophils (Manual) Toxic Granulation Platelet Comment Poikilocytosis Anisocytosis PT INR APTT Sodium 135.1 L Potassium 4.1 Chloride 93 L Carbon Dioxide 25 Anion Gap 17 BUN 97 H Creatinine 6.47 H Est GFR ( Amer) 11 L Est GFR (MDRD) Non-Af 9 L Glucose 114 H POC Glucose 133 H 106 Calcium 8.8 Magnesium Creatine Kinase NT-Pro-B Natriuret Pep Urine Creatinine Urine Sodium Abdomen/Pelvis CT 08/30/20 00:00 IMPRESSION: Heterogeneous pattern in the liver which is strongly suspicious for multiple masses. Generalize moderate ascites. Findings very worrisome for metastatic disease. Chest X-Ray 08/30/20 16:23 IMPRESSION: Nonspecific parenchymal opacities left base. Venous Doppler Study 08/30/20 17:06 IMPRESSION: No acute DVT or SVT in either leg. 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 No hydronephrosis. ECHO: LV EF is 65% to 70% The left ventricle is normal in size. There is normal left ventricular wall thickness. Left ventricular systolic function is normal. Doppler measurements suggest normal left ventricular diastolic function By Tissue dopplers. The left ventricular wall motion is normal. There is no thrombus. No ASD,VSD , or PFPO seen. The right ventricle is not well visualized secondary to technical limitations Probably normal RV size and fuctioon,but cannot be sure. The right atrium is normal. The left atrium is mildly dilated. There is no evidence of mitral valve prolapse. There is no vegetation seen on the mitral valve. There is no mitral valve stenosis. There is a trace amount of mitral regurgitation There is no aortic valvular vegetation. There is no aortic valve stenosis There is no LVOT obstruction. No aortic regurgitation is present. There is no tricuspid stenosis. There is a trace amount of tricuspid regurgitation Right ventricular systolic pressure is normal. Right ventricular systolic pressure is at the upper limits of normal RVSP is 28 mm of HG with RA mean of 0 to 5. There is no pulmonic valvular stenosis. There is no pulmonic valvular regurgitation. The aortic root is normal size. The inferior vena cava appeared small and collapsed with respiration (RAP 0-5 mmHg) There is no pericardial effusion. IMPRESSION/RECOMMENDATION: 1. Hypotension most likely secondary to dehydration. Would recommend continue IV dopamine drip at current dose hydrate the patient. 2. Leg edema most likely secondary to low albumin and hypothyroidism. No evidence of heart failure. 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 There could be an element of venous insufficiency also. This is definitely not due to heart failure. 3. Acute renal failure: Most likely secondary to dehydration. 4. Paroxysmal atrial fibrillation/flutter. Watch for recurrence. 5. Severe dehydration: Continue IV fluids. 6. Esophageal cancer with liver mets. 7.. 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 8. History of hypertension 9. History of COPD. No evidence of acute exacerbation. 10. History of sleep apnea: Patient recommended to wear CPAP. 11. Diabetes mellitus type 2 continue antidiabetic treatment and and periodic Accu-Cheks. 12. Abnormal liver function tests: Secondary to liver mets. 13. Protein malnutrition: Recommend high-protein diet. 14. Morbid obesity. 10. No evidence of heart failure systolic or diastolic. Case discussed with the attending provider on the case Dr. Garrido and with the oncologist and collet gluer. Medical decision making is of high complexity. 40 minutes spent on this patient with more than 50% of the time spent in direct patient care. Will follow echo findings discussed with the patient.
--- NOTE | 2020-09-01 22:35 | XCELERA REPORT ---
[address] [address] Transthoracic Echocardiogram Report Name: RO PLATT Age: 65 yrs Gender: Male : 1955 Patient Status: Inpatient Patient Location: [address] [place] [address] Study Date: 09/01/2020 04:01 PM Height: 68 in Weight: 297 lb BSA: 2.4 m2 Procedure: A two-dimensional transthoracic echocardiogram with color flow and Doppler was performed. The study was technically difficult with many images being suboptimal in quality. Reason For Study: SOB / PA Fib History: SOB / PA Fib. Ordering Physician: MARY GODINEZ Performed By: Francisco Trujillo Interpretation Summary LV EF is 65% to 70% The left ventricle is normal in size. There is normal left ventricular wall thickness. Left ventricular systolic function is normal. Doppler measurements suggest normal left ventricular diastolic function By Tissue dopplers. The left ventricular wall motion is normal. There is no thrombus. No ASD,VSD , or PFPO seen. The right ventricle is not well visualized secondary to technical limitations Probably normal RV size and fuctioon,but cannot be sure. The right atrium is normal. The left atrium is mildly dilated. There is no evidence of mitral valve prolapse. There is no vegetation seen on the mitral valve. There is no mitral valve stenosis. There is a trace amount of mitral regurgitation There is no aortic valvular vegetation. There is no aortic valve stenosis There is no LVOT obstruction. No aortic regurgitation is present. There is no tricuspid stenosis. There is a trace amount of tricuspid regurgitation Right ventricular systolic pressure is normal. Right ventricular systolic pressure is at the upper limits of normal RVSP is 28 mm of HG with RA mean of 0 to 5. There is no pulmonic valvular stenosis. There is no pulmonic valvular regurgitation. The aortic root is normal size. The inferior vena cava appeared small and collapsed with respiration (RAP 0-5 mmHg) There is no pericardial effusion. MMode/2D Measurements & Calculations RVDd: 3.4 cm LVIDd: 3.8 cm FS: 38.5 % Ao root diam: 3.1 cm IVSd: 1.1 cm LVIDs: 2.3 cm EDV(Teich): 60.6 ml Ao root area: 7.7 cm2 LVPWd: 1.0 cm ESV(Teich): 18.4 ml LA dimension: 4.5 cm EF(Teich): 69.6 % Doppler Measurements & Calculations MV E max sylvia: MV P1/2t max sylvia: Ao V2 max: LV V1 max P.4 cm/sec 100.4 cm/sec 183.1 cm/sec 11.1 mmHg MV A max sylvia: MV P1/2t: 82.8 msec Ao max PG: LV V1 max: 106.9 cm/sec MVA(P1/2t): 2.7 cm2 13.4 mmHg 166.6 cm/sec MV E/A: 0.78 MV dec slope: 355.1 cm/sec2 MV dec time: 0.18 sec PA V2 max: TR max sylvia: MV P1/2t-pr_phl: 105.6 cm/sec 237.5 cm/sec 82.8 msec PA max P.5 mmHgTR max P.6 mmHg Left Ventricle The left ventricle is normal in size. There is normal left ventricular wall thickness. Left ventricular systolic function is normal. LV EF is 65% to 70%. Doppler measurements suggest normal left ventricular diastolic function. By Tissue dopplers. The left ventricular wall motion is normal. There is no thrombus. No ASD,VSD , or PFPO seen. Right Ventricle The right ventricle is not well visualized secondary to technical limitations. Probably normal RV size and fuctioon,but cannot be sure. Atria The right atrium is normal. The left atrium is mildly dilated. Mitral Valve There is no evidence of mitral valve prolapse. There is no vegetation seen on the mitral valve. There is no mitral valve stenosis. There is a trace amount of mitral regurgitation. Aortic Valve There is no aortic valvular vegetation. There is no aortic valve stenosis. There is no LVOT obstruction. No aortic regurgitation is present. Tricuspid Valve There is no tricuspid stenosis. There is a trace amount of tricuspid regurgitation. Right ventricular systolic pressure is normal. Right ventricular systolic pressure is at the upper limits of normal. RVSP is 28 mm of HG with RA mean of 0 to 5. Pulmonic Valve There is no pulmonic valvular stenosis. There is no pulmonic valvular regurgitation. Great Vessels The aortic root is normal size. The inferior vena cava appeared small and collapsed with respiration (RAP 0-5 mmHg). Effusions There is no pericardial effusion. : MARY GODINEZ Lakshmi
[2020-09-02] MEDS: NORMAL SALINE 1000 ML 1,000 ML IV PRN ×2 (00:10→11:32)
[2020-09-02] MEDS: DOPAMINE HCL 800 MG/D5W 250 ML IV PRN ×2 (00:10→21:55)
[2020-09-02] MEDS: ALBUMIN HUMAN 12.5 GM/50 ML RTUINJ IV SCH ×3 (05:25→21:54)
[2020-09-02] MEDS: PANTOPRAZOLE SODIUM 40 MG TABLET.DR PO SCH ×2 (05:25→17:51)
[2020-09-02] MEDS: LEVOTHYROXINE SODIUM 0.025 MG TABLET PO SCH (05:25)
[2020-09-02 06:41] LABS: HEMATOCRIT 30.5 % (37.9-51.0); HEMOGLOBIN 10.2 g/dL (13.5-17.0); MEAN CORPUSCULAR HEMOGLOBIN 32.1 pg (27.0-33.4); MEAN CORPUSCULAR HGB CONC 33.4 g/dL (32.0-36.0); MEAN CORPUSCULAR VOLUME 96 fl (80-97); PLATELET COUNT 216 10^3/uL (150-450); RED BLOOD COUNT 3.17 10^6/uL (4.35-5.55); RED CELL DISTRIBUTION WIDTH 18.8 % (11.5-14.0); WHITE BLOOD COUNT 10.8 10^3/uL (4.0-10.5)
[2020-09-02 07:03] LABS: ANION GAP 18 (5-19); BLOOD UREA NITROGEN 98 mg/dL (7-20); CALCIUM 8.8 mg/dL (8.4-10.2); CARBON DIOXIDE 23 mmol/L (22-30); CHLORIDE 96 mmol/L (98-107); GLUCOSE 102 mg/dL (75-110); POTASSIUM 4.1 mmol/L (3.6-5.0)
[2020-09-02 07:11] LABS: ABSOLUTE LYMPHOCYTES# (MANUAL) 0.9 10^3/uL (0.5-4.7); ABSOLUTE MONOCYTES # (MANUAL) 1.5 10^3/uL (0.1-1.4); BASOPHILS % (MANUAL) 0 % (0-2); EOSINOPHILS % (MANUAL) 0 % (0-6); LYMPHOCYTES % (MANUAL) 8 % (13-45); MONOCYTES % (MANUAL) 14 % (3-13); SEGMENTED NEUTROPHILS % (MAN) 78 % (42-78); TOTAL CELLS COUNTED 100
[2020-09-02 07:13] LABS: FREE T3 1.84 pg/mL (2.77-5.27); FREE T4 (FREE THYROXINE) 1.86 ng/dL (0.78-2.19)
[2020-09-02 07:17] LABS: ANISOCYTOSIS 1+; OVALOCYTES SLIGHT; PLATELET COMMENT ADEQUATE; TARGET CELLS 1+; TOXIC GRANULATION SLIGHT
[2020-09-02] MEDS: INSULIN LISPRO 100 UNIT/ML 3 ML VIAL SUBCUT SCH ×4 (08:40→22:36)
[2020-09-02] MEDS: GABAPENTIN 300 MG CAPSULE PO SCH (09:40)
[2020-09-02] MEDS: ONDANSETRON HCL INJ/PF 4 MG/2 ML SDV IV PRN (09:45)
--- NOTE | 2020-09-02 10:54 | RADIOLOGY REPORT (SQ) ---
EXAM DESCRIPTION: CHEST SINGLE VIEW IMAGES COMPLETED DATE/TIME: 09/02/2020 8:04 am REASON FOR STUDY: SOB COMPARISON: AP chest 08/30/2020 EXAM PARAMETERS: NUMBER OF VIEWS: One view. TECHNIQUE: Single frontal radiographic view of the chest acquired. RADIATION DOSE: NA LIMITATIONS: None. FINDINGS: LUNGS AND PLEURA: Consolidation in the lateral left lung base is unchanged compared to 08/2020. Right lung grossly clear. No pleural effusion no pneumothorax MEDIASTINUM AND HILAR STRUCTURES: No masses. Contour normal. HEART AND VASCULAR STRUCTURES: No cardiomegaly BONES: No acute findings. HARDWARE: Right permanent central line tip superior vena cava OTHER: No other significant finding. IMPRESSION: Persistent consolidation left lateral lung base, unchanged from 08/30/2020 TECHNICAL DOCUMENTATION: JOB ID: [id number] [employer]- All Rights Reserved Reading location - IP/workstation name: [id number]
[2020-09-02] MEDS: SIMETHICONE 80 MG TAB.CHEW PO PRN (13:11)
--- NOTE | 2020-09-02 14:22 | PDOC PROGRESS REPORT ---
Subjective Date:: 09/02/20 Subjective:: No acute events overnight, patient is making approximately 75 cc/h of urine output, today had a long discussion about next steps of care. Reason For Visit: RENAL FAILUREP Physical Exam Vital Signs: Temp Pulse Resp BP Pulse Ox 97.4 F 97 18 86/51 L 97 09/02/20 10:49 09/02/20 10:49 09/02/20 10:49 09/02/20 10:49 09/02/20 10:49 Intake & Output 09/01/20 09/02/20 09/03/20 06:59 06:59 06:59 Intake Total 350 2171 1592 Output Total 500 1125 225 Balance -150 1046 1367 Weight 135.1 kg 137.7 kg General appearance: PRESENT: no acute distress, well-developed, well-nourished Head exam: PRESENT: atraumatic, normocephalic Eye exam: PRESENT: conjunctiva pink, EOMI, PERRLA. ABSENT: scleral icterus Ear exam: PRESENT: normal external ear exam Mouth exam: PRESENT: moist, tongue midline Neck exam: ABSENT: carotid bruit, JVD, lymphadenopathy, thyromegaly Respiratory exam: PRESENT: clear to auscultation darron. ABSENT: rales, rhonchi, wheezes Cardiovascular exam: PRESENT: RRR. ABSENT: diastolic murmur, rubs, systolic murmur Pulses: PRESENT: normal dorsalis pedis pul Vascular exam: PRESENT: normal capillary refill GI/Abdominal exam: PRESENT: normal bowel sounds, soft. ABSENT: distended, guarding, mass, organolmegaly, rebound, tenderness Rectal exam: PRESENT: deferred Extremities exam: PRESENT: full ROM. ABSENT: calf tenderness, clubbing, pedal edema Neurological exam: PRESENT: alert, awake, oriented to person, oriented to place, oriented to time, oriented to situation, CN II-XII grossly intact. ABSENT: motor sensory deficit Psychiatric exam: PRESENT: appropriate affect, normal mood. ABSENT: homicidal ideation, suicidal ideation Skin exam: PRESENT: dry, intact, warm. ABSENT: cyanosis, rash Results Laboratory Results: 09/02/20 05:57 09/02/20 05:57 09/01/20 09/02/20 09/02/20 13:34 05:57 05:57 WBC 10.8 H RBC 3.17 L Hgb 10.2 L Hct 30.5 L MCV 96 MCH 32.1 MCHC 33.4 RDW 18.8 H Plt Count 216 Seg Neutrophils % Not Reportable Sodium 135.1 L 136.5 L Potassium 4.1 4.1 Chloride 93 L 96 L Carbon Dioxide 25 23 Anion Gap 17 18 BUN 97 H 98 H Creatinine 6.47 H 5.26 H Est GFR ( Amer) 11 L 13 L Glucose 114 H 102 Calcium 8.8 8.8 Magnesium 1.6 Free T4 Free T3 pg/mL 09/02/20 05:57 WBC RBC Hgb Hct MCV MCH MCHC RDW Plt Count Seg Neutrophils % Sodium Potassium Chloride Carbon Dioxide Anion Gap BUN Creatinine Est GFR ( Amer) Glucose Calcium Magnesium Free T4 1.86 Free T3 pg/mL 1.84 L 08/30/20 22:32 Clean Catch Midstream Urine Culture - Final Enterococcus Faecalis(Group D) Urogenital Mary 08/30/20 08/31/20 09/01/20 16:40 06:50 05:45 Creatine Kinase 207 H Troponin I < 0.012 NT-Pro-B Natriuret Pep 3560 H 09/01/20 09/02/20 05:45 05:57 Creatine Kinase Troponin I NT-Pro-B Natriuret Pep 4810 H 3850 H Impressions: Abdomen/Pelvis CT 08/30/20 00:00 IMPRESSION: Heterogeneous pattern in the liver which is strongly suspicious for multiple masses. Generalize moderate ascites. Findings very worrisome for metastatic disease. Venous Doppler Study 08/30/20 17:06 IMPRESSION: No acute DVT or SVT in either leg. 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 No hydronephrosis. Chest X-Ray 09/02/20 06:00 IMPRESSION: Persistent consolidation left lateral lung base, unchanged from 08/30/2020 Assessment & Plan - Diagnosis (1) Esophageal cancer Qualifiers: Malignant neoplasm of esophagus location: lower third Qualified Code(s): 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 Is this a current diagnosis for this admission?: Yes Plan: Awaiting recovery of kidney function, if we can get to that point we would start chemotherapy. (2) Acute renal failure Qualifiers: Acute renal failure type: unspecified Qualified Code(s): N17.9 - Acute kidney failure, unspecified Is this a current diagnosis for this admission?: Yes Plan: Slightly improved today, followed by nephrology and primary team. - Time Time Spent with patient: 35 or more minutes
--- NOTE | 2020-09-02 14:57 | PDOC PROGRESS REPORT ---
Subjective Date:: 09/02/20 Subjective:: Patient seen by the bedside, he has multiple comorbid conditions including metas tatic malignant neoplasm of the esophagus, acute kidney injury, low blood pressure, the chest x-ray that was done today demonstrated persistent consolidation in the left lung base unchanged from 08/30/2020 Reason For Visit: RENAL FAILUREP Physical Exam Vital Signs: Temp Pulse Resp BP Pulse Ox 97.4 F 97 18 86/51 L 97 09/02/20 10:49 09/02/20 10:49 09/02/20 10:49 09/02/20 10:49 09/02/20 10:49 Intake & Output 09/01/20 09/02/20 09/03/20 06:59 06:59 06:59 Intake Total 350 2171 1592 Output Total 500 1125 225 Balance -150 1046 1367 Weight 135.1 kg 137.7 kg General appearance: PRESENT: no acute distress Eye exam: PRESENT: PERRLA Respiratory exam: PRESENT: clear to auscultation darron Cardiovascular exam: PRESENT: +S1, +S2 Results Laboratory Results: 09/02/20 05:57 09/02/20 05:57 09/02/20 09/02/20 09/02/20 05:57 05:57 05:57 WBC 10.8 H RBC 3.17 L Hgb 10.2 L Hct 30.5 L MCV 96 MCH 32.1 MCHC 33.4 RDW 18.8 H Plt Count 216 Seg Neutrophils % Not Reportable Sodium 136.5 L Potassium 4.1 Chloride 96 L Carbon Dioxide 23 Anion Gap 18 BUN 98 H Creatinine 5.26 H Est GFR ( Amer) 13 L Glucose 102 Calcium 8.8 Magnesium 1.6 Free T4 1.86 Free T3 pg/mL 1.84 L 08/30/20 22:32 Clean Catch Midstream Urine Culture - Final Enterococcus Faecalis(Group D) Urogenital Mary 08/30/20 08/31/20 09/01/20 16:40 06:50 05:45 Creatine Kinase 207 H Troponin I < 0.012 NT-Pro-B Natriuret Pep 3560 H 09/01/20 09/02/20 05:45 05:57 Creatine Kinase Troponin I NT-Pro-B Natriuret Pep 4810 H 3850 H Impressions: Abdomen/Pelvis CT 08/30/20 00:00 IMPRESSION: Heterogeneous pattern in the liver which is strongly suspicious for multiple masses. Generalize moderate ascites. Findings very worrisome for metastatic disease. Venous Doppler Study 08/30/20 17:06 IMPRESSION: No acute DVT or SVT in either leg. 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 No hydronephrosis. Chest X-Ray 09/02/20 06:00 IMPRESSION: Persistent consolidation left lateral lung base, unchanged from 08/30/2020 Assessment & Plan - Diagnosis (1) Acute kidney injury Is this a current diagnosis for this admission?: Yes (2) Pneumonia Qualifiers: Pneumonia type: due to unspecified organism Laterality: left Lung location: lower lobe of lung Qualified Code(s): J18.9 - Pneumonia, unspecified organism Is this a current diagnosis for this admission?: Yes Plan: Patient presently not on antibiotic, chest x-ray demonstrated persistent left l ower lobe consolidation, start ceftriaxone and azithromycin to cover community- acquired pathogens (3) Malignant neoplasm of esophagus, unspecified Is this a current diagnosis for this admission?: Yes Plan: oncology following - Time Time Spent with patient: 35 or more minutes Level of Care: IMCU Medications reviewed and adjusted accordingly: Yes Anticipated discharge: Home Anticipated DC Timeframe: within 72 hours
[2020-09-02] MEDS: PHARMACY COMMUNICATION ORDER MC SCH (17:50)
[2020-09-02] MEDS: AZITHROMYCIN 500 MG in DEXTROSE 5%-WATER 250 ML IV SCH ×2 (17:51→18:41)
[2020-09-02] MEDS: CEFTRIAXONE 1 GM/D5W RTU 1 GM/50 ML RTUPB IV SCH (17:51)
--- NOTE | 2020-09-02 18:49 | Progress Note ---
Provider Note Provider Note: CARDIOLOGY PROGRESS NOTE by Dr. Mary Vera on 09/02/2020. SUBJECTIVE: The patient is renal function is slightly improved and his urine output is also picked up. He denies any chest pain or discomfort. There is no increased shortness of breath. There is no PND orthopnea. His leg edema is also improved. There is no arrhythmias seen on the monitor especially there is no recurrence of atrial fibrillation or flutter. Although the patient denies any cough, and there is no fever there is still the chest x-ray showing left lower lobe consolidation. Would recommend treat this with the antibiotics. Also the patient's Xarelto has been held due to his renal function. Hence would recommend switching to Eliquis 2.5 mg p.o. twice daily. His blood pressure is better and about 100s but still requiring dopamine. If the dopamine is decreased his blood pressure drops and his the dopamine is at 5 mcg/kg/min. He is tolerating IV fluids. PHYSICAL EXAMINATION: The patient morbidly obese, in no acute distress. Selected Entries 09/02/20 14:54 Temperature 97.5 F Temperature Oral Source Pulse Rate 108 H Respiratory 18 Rate Blood Pressure 107/59 L Blood Pressure 75 Mean BP Location Left Arm BP Position Supine O2 Sat by Pulse 97 Oximetry Oxygen Delivery Room Air Method Head: Is atraumatic normocephalic. EYES: Pupils are equal round regular reactive to light and accommodation. Extraocular movements are normal. There is no conjunctival pallor. There is no scleral icterus. EARS: Tympanic membranes are intact. External auditory canals clear. NOSE: There is no deviated nasal septum. There is no inflammation nasal mucous membrane. MOUTH: Mucous membranes of mouth are dry tongue is dry there is no ulcers there is no bleeding from the gums. Throat: There is no redness of the oropharynx. There is no exudates. SKIN: There is no skin rashes. There is no petechia or ecchymosis. NECK: Supple. There is no JVD. Carotids are equal there is no bruit there is no lymphadenopathy there is no goiter. LUNGS: There is no accessory muscle respiration in use. Trachea central. Lungs: Shows slightly decreased air entry bilaterally without any rhonchi rales or wheezing. There is slightly increased expiration. HEART: S1-S2 is heard. There is no S3 gallop. There is no S4 gallop. There is systolic murmur left sternal border and the apex with no radiation. There is no rub. ABDOMEN: Soft. There is nontender. There is no hepatosplenomegaly. Bowel sounds are well heard. Abdomen is obese. Upper extremities: Femorals are deep. There is no femoral bruits. Leg pulses are difficult to palpate. There is 1+ to 2 - pedal edema bilaterally. There is no DVT or cellulitis. There is no cyanosis or clubbing. 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 Psychiatric: The patient judgment insight are intact. And affect is normal. The patient's 24-hour intake is 2175 mL. Output is 1125 mL. The patient is making about 75 cc of urine per hour. Labs- All tests 24 hr 09/01/20 09/02/20 09/02/20 21:09 05:57 05:57 WBC 10.8 H RBC 3.17 L Hgb 10.2 L Hct 30.5 L MCV 96 MCH 32.1 MCHC 33.4 RDW 18.8 H Plt Count 216 Lymph % (Auto) Not Reportable Bailey % (Auto) Not Reportable Eos % (Auto) Not Reportable Baso % (Auto) Not Reportable Absolute Neuts (auto) Not Reportable Absolute Lymphs (auto) Not Reportable Absolute Monos (auto) Not Reportable Absolute Eos (auto) Not Reportable Absolute Basos (auto) Not Reportable Total Counted 100 Seg Neutrophils % Not Reportable Seg Neuts % (Manual) 78 Lymphocytes % (Manual) 8 L Monocytes % (Manual) 14 H Eosinophils % (Manual) 0 Basophils % (Manual) 0 Abs Neuts (Manual) 8.4 H Abs Lymphs (Manual) 0.9 Abs Monocytes (Manual) 1.5 H Absolute Eos (Manual) 0.0 Abs Basophils (Manual) 0.0 Toxic Granulation SLIGHT Platelet Comment ADEQUATE Anisocytosis 1+ Target Cells 1+ Ovalocytes SLIGHT Sodium 136.5 L Potassium 4.1 Chloride 96 L Carbon Dioxide 23 Anion Gap 18 BUN 98 H Creatinine 5.26 H Est GFR ( Amer) 13 L Est GFR (MDRD) Non-Af 11 L Glucose 102 POC Glucose 106 Calcium 8.8 Magnesium 1.6 NT-Pro-B Natriuret Pep Free T4 Free T3 pg/mL 09/02/20 09/02/20 09/02/20 05:57 05:57 07:59 WBC RBC Hgb Hct MCV MCH MCHC RDW Plt Count Lymph % (Auto) Bailey % (Auto) Eos % (Auto) Baso % (Auto) Absolute Neuts (auto) Absolute Lymphs (auto) Absolute Monos (auto) Absolute Eos (auto) Absolute Basos (auto) Total Counted Seg Neutrophils % Seg Neuts % (Manual) Lymphocytes % (Manual) Monocytes % (Manual) Eosinophils % (Manual) Basophils % (Manual) Abs Neuts (Manual) Abs Lymphs (Manual) Abs Monocytes (Manual) Absolute Eos (Manual) Abs Basophils (Manual) Toxic Granulation Platelet Comment Anisocytosis Target Cells Ovalocytes Sodium Potassium Chloride Carbon Dioxide Anion Gap BUN Creatinine Est GFR ( Amer) Est GFR (MDRD) Non-Af Glucose POC Glucose 119 H Calcium Magnesium NT-Pro-B Natriuret Pep 3850 H Free T4 1.86 Free T3 pg/mL 1.84 L 09/02/20 09/02/20 10:50 16:01 WBC RBC Hgb Hct MCV MCH MCHC RDW Plt Count Lymph % (Auto) Bailey % (Auto) Eos % (Auto) Baso % (Auto) Absolute Neuts (auto) Absolute Lymphs (auto) Absolute Monos (auto) Absolute Eos (auto) Absolute Basos (auto) Total Counted Seg Neutrophils % Seg Neuts % (Manual) Lymphocytes % (Manual) Monocytes % (Manual) Eosinophils % (Manual) Basophils % (Manual) Abs Neuts (Manual) Abs Lymphs (Manual) Abs Monocytes (Manual) Absolute Eos (Manual) Abs Basophils (Manual) Toxic Granulation Platelet Comment Anisocytosis Target Cells Ovalocytes Sodium Potassium Chloride Carbon Dioxide Anion Gap BUN Creatinine Est GFR ( Amer) Est GFR (MDRD) Non-Af Glucose POC Glucose 131 H 140 H Calcium Magnesium NT-Pro-B Natriuret Pep Free T4 Free T3 pg/mL Abdomen/Pelvis CT 08/30/20 00:00 IMPRESSION: Heterogeneous pattern in the liver which is strongly suspicious for multiple masses. Generalize moderate ascites. Findings very worrisome for metastatic disease. Chest X-Ray 08/30/20 16:23 IMPRESSION: Nonspecific parenchymal opacities left base. Venous Doppler Study 08/30/20 17:06 IMPRESSION: No acute DVT or SVT in either leg. 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 No hydronephrosis. Chest X-Ray 09/02/20 06:00 IMPRESSION: Persistent consolidation left lateral lung base, unchanged from 08/30/2020 IMPRESSION/RECOMMENDATION: 1. Hypotension most likely secondary to dehydration. Would recommend continue IV dopamine drip at current dose hydrate the patient. 2. Leg edema most likely secondary to low albumin and hypothyroidism. No evidence of heart failure. 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 There could be an element of venous insufficiency also. This is definitely not due to heart failure. 3. Acute renal failure: Most likely secondary to dehydration. 4. Paroxysmal atrial fibrillation/flutter. Watch for recurrence. 5. Severe dehydration: Continue IV fluids. 6. Hypothyroidism: Continue replacement. Recheck TSH. 7. Esophageal cancer with liver mets. 8. 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 89 History of hypertension 10 History of COPD. No evidence of acute exacerbation. 11. Symptoms of of sleep apnea: Patient recommended to have a sleep study as an outpatient.. 12. Diabetes mellitus type 2 continue antidiabetic treatment and and periodic Accu-Cheks. 13. Abnormal liver function tests: Secondary to liver mets. 14. Protein malnutrition: Recommend high-protein diet. 15. Morbid obesity. 16. No evidence of heart failure systolic or diastolic. Case discussed with the attending provider on the case Dr. Garrido and with the oncologist and health and safety advisor. Medical decision making is of high complexity. 40 minutes spent on this patient with more than 50% of the time spent in direct patient care. Will follow echo findings discussed with the patient.
[2020-09-03] MEDS: NORMAL SALINE 1000 ML 1,000 ML IV PRN ×2 (01:10→14:00)
[2020-09-03] MEDS: ALBUMIN HUMAN 12.5 GM/50 ML RTUINJ IV SCH ×2 (05:32→13:53)
[2020-09-03] MEDS: PANTOPRAZOLE SODIUM 40 MG TABLET.DR PO SCH ×2 (05:35→17:10)
[2020-09-03] MEDS: LEVOTHYROXINE SODIUM 0.025 MG TABLET PO SCH (05:35)
[2020-09-03 07:45] LABS: ALBUMIN 3.1 g/dL (3.5-5.0); ALKALINE PHOSPHATASE 449 U/L (38-126); ANION GAP 16 (5-19); ASPARTATE AMINO TRANSFERASE 240 U/L (17-59); BILIRUBIN,DIRECT 3.1 mg/dL (0.0-0.4); BILIRUBIN,TOTAL 3.7 mg/dL (0.2-1.3); BLOOD UREA NITROGEN 87 mg/dL (7-20); CALCIUM 8.8 mg/dL (8.4-10.2); CARBON DIOXIDE 25 mmol/L (22-30); CHLORIDE 97 mmol/L (98-107); GLUCOSE 108 mg/dL (75-110); POTASSIUM 3.9 mmol/L (3.6-5.0); TOTAL PROTEIN 6.2 g/dL (6.3-8.2)
[2020-09-03] MEDS: INSULIN LISPRO 100 UNIT/ML 3 ML VIAL SUBCUT SCH ×4 (07:58→21:27)
[2020-09-03] MEDS: GABAPENTIN 300 MG CAPSULE PO SCH (10:03)
--- NOTE | 2020-09-03 12:13 | Progress Note ---
Provider Note Provider Note: CARDIOLOGY PROGRESS NOTE by Dr. Mary Dobbs on 09/03/2020. Subjective: The patient states he feels slightly better. He denies any shortness of breath. He has no orthopnea or PND. His leg edema is better. There is no recurrence of atrial fibrillation or flutter. There is no TIA CVA symptoms. There is no bleeding on Eliquis. The patient has no anginal symptoms. His urine output is slightly better. His creatinine is coming down. Patient still appears to be dehydrated. The patient recheck of the TSH came back normal at 1.56. Just in 4 days of replacement with Synthroid with TSH is come down from 12-1.56. Hence is probably a lab error. We will hold the Synthroid. PHYSICAL EXAMINATION: The patient is morbidly obese in no acute distress. Selected Entries 09/03/20 09/03/20 09/03/20 07:34 08:00 09:00 Temperature 97.5 F Temperature Oral Source Pulse Rate 112 H Heart Rate ( 104 Monitors) Respiratory 18 Rate Blood Pressure 124/80 113/73 Blood Pressure 94 Mean BP Location Right Arm BP Position Supine O2 Sat by Pulse 96 Oximetry Oxygen Delivery Room Air Method O2 Sat by Pulse 94 Oximetry by Telemetry Head: Is atraumatic normocephalic. EYES: Pupils are equal round regular reactive to light and accommodation. Extraocular movements are normal. There is no conjunctival pallor. There is no scleral icterus. EARS: Tympanic membranes are intact. External auditory canals clear. NOSE: There is no deviated nasal septum. There is no inflammation nasal mucous membrane. MOUTH: Mucous membranes of mouth are dry tongue is dry there is no ulcers there is no bleeding from the gums. Throat: There is no redness of the oropharynx. There is no exudates. SKIN: There is no skin rashes. There is no petechia or ecchymosis. NECK: Supple. There is no JVD. Carotids are equal there is no br uit there is no lymphadenopathy there is no goiter. LUNGS: There is no accessory muscle respiration in use. Trachea central. Lungs: Shows slightly decreased air entry bilaterally without any rhonchi rales or wheezing. There is slightly increased expiration. HEART: S1-S2 is heard. There is no S3 gallop. There is no S4 gallop. There is systolic murmur left sternal border and the apex with no radiation. There is no rub. ABDOMEN: Soft. There is nontender. There is no hepatosplenomegaly. Bowel sounds are well heard. Abdomen is obese. Upper extremities: Femorals are deep. There is no femoral bruits. Leg pulses are difficult to palpate. There is 1+ to 2 - pedal edema bilaterally. There is no DVT or cellulitis. There is no cyanosis or clubbing. ACTIVITY THERAPY TEACHER: The patient is conscious awake alert oriented x3 with no focal deficit. Psychiatric: The patient judgment insight are intact. And affect is normal. The patient's 24-hour intake is 4092 mL. Output is 1250 mL. The patient is making about 75 cc of urine per hour. Labs- All tests 24 hr 09/02/20 09/02/20 09/03/20 16:01 22:23 06:15 Sodium 137.6 Potassium 3.9 Chloride 97 L Carbon Dioxide 25 Anion Gap 16 BUN 87 H Creatinine 4.19 H Est GFR ( Amer) 17 L Est GFR (MDRD) Non-Af 14 L Glucose 108 POC Glucose 140 H 130 H Calcium 8.8 Total Bilirubin 3.7 H Direct Bilirubin 3.1 H Neonat Total Bilirubin Not Reportable Neonat Direct Bilirubin Not Reportable Neonat Indirect Bili Not Reportable AST 240 H ALT 31 Alkaline Phosphatase 449 H Total Protein 6.2 L Albumin 3.1 L TSH 09/03/20 09/03/20 09/03/20 06:15 07:37 11:40 Sodium Potassium Chloride Carbon Dioxide Anion Gap BUN Creatinine Est GFR ( Amer) Est GFR (MDRD) Non-Af Glucose POC Glucose 122 H 134 H Calcium Total Bilirubin Direct Bilirubin Neonat Total Bilirubin Neonat Direct Bilirubin Neonat Indirect Bili AST ALT Alkaline Phosphatase Total Protein Albumin TSH 1.56 Abdomen/Pelvis CT 08/30/20 00:00 IMPRESSION: Heterogeneous pattern in the liver which is strongly suspicious for multiple masses. Generalize moderate ascites. Findings very worrisome for metastatic disease. Chest X-Ray 08/30/20 16:23 IMPRESSION: Nonspecific parenchymal opacities left base. Venous Doppler Study 08/30/20 17:06 IMPRESSION: No acute DVT or SVT in either leg. 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 No hydronephrosis. Chest X-Ray 09/02/20 06:00 IMPRESSION: Persistent consolidation left lateral lung base, unchanged from 08/30/2020 IMPRESSION/RECOMMENDATION: 1. Hypotension most likely secondary to dehydration. Would recommend continue IV dopamine drip at current dose hydrate the patient. Continue hydration. We will slowly wean the patient off dopamine for mean at present the patient is at 3 mcg/kg/min. Medical regimen and management plan discussed with attending provider on the case. 2. Leg edema most likely secondary to low albumin and hypothyroidism. No evidence of heart failure. 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 There could be an element of venous insufficiency also. This is definitely not due to heart failure. 3. Acute renal failure: Most likely secondary to dehydration. 4. Paroxysmal atrial fibrillation/flutter. Watch for recurrence. 5. Severe dehydration: Continue IV fluids. 6. Hypothyroidism: Continue replacement. With just 4 days of thyroid replacement the TSH came down from 12 to a normal level of 1.56. As there is probably a lab error. We will hold the Synthroid for now. 7. Esophageal cancer with liver mets. 8. 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 89 History of hypertension 10 History of COPD. No evidence of acute exacerbation. 11. Symptoms of of sleep apnea: Patient recommended to have a sleep study as an outpatient.. 12. Diabetes mellitus type 2 continue antidiabetic treatment and and periodic Accu-Cheks. 13. Abnormal liver function tests: Secondary to liver mets. 14. Protein malnutrition: Recommend high-protein diet. Recommend a can of Ensure twice a day at least. 15. Morbid obesity. 16. Abnormal chest x-ray: The patient is on antibiotics. The patient has no fever or increased white count or cough. 17. No evidence of heart failure systolic or diastolic. Medications reviewed. Medical regimen and management plan discussed with attending physician on the case medical decision making is of high complexity in view of the need to titrate dopamine. 40 minutes spent as patient more than 50% of time spent on direct patient care. Will follow
--- NOTE | 2020-09-03 15:23 | PDOC PROGRESS REPORT ---
Subjective Date:: 09/03/20 Subjective:: Patient seen by the bedside, he has multiple comorbid conditions including metas tatic malignant neoplasm of the esophagus, acute kidney injury, low blood pressure, the chest x-ray that was done today demonstrated persistent consolidation in the left lung base unchanged from 08/30/2020 Reason For Visit: RENAL FAILUREP Physical Exam Vital Signs: Temp Pulse Resp BP Pulse Ox 97.9 F 106 H 19 109/62 97 09/03/20 12:00 09/03/20 12:15 09/03/20 12:00 09/03/20 12:15 09/03/20 12:00 Intake & Output 09/02/20 09/03/20 09/04/20 06:59 06:59 06:59 Intake Total 2171 4092 171 Output Total 1125 1250 Balance 1046 2842 171 Weight 137.7 kg 139.1 kg General appearance: PRESENT: no acute distress Eye exam: PRESENT: PERRLA Respiratory exam: PRESENT: clear to auscultation darron Cardiovascular exam: PRESENT: +S1, +S2 GI/Abdominal exam: PRESENT: soft Neurological exam: PRESENT: alert Results Laboratory Results: 09/02/20 05:57 09/03/20 06:15 09/03/20 09/03/20 06:15 06:15 Sodium 137.6 Potassium 3.9 Chloride 97 L Carbon Dioxide 25 Anion Gap 16 BUN 87 H Creatinine 4.19 H Est GFR ( Amer) 17 L Glucose 108 Calcium 8.8 Total Bilirubin 3.7 H AST 240 H Alkaline Phosphatase 449 H Total Protein 6.2 L Albumin 3.1 L TSH 1.56 08/30/20 22:32 Clean Catch Midstream Urine Culture - Final Enterococcus Faecalis(Group D) Urogenital Mary 08/30/20 08/31/20 09/01/20 16:40 06:50 05:45 Creatine Kinase 207 H Troponin I < 0.012 NT-Pro-B Natriuret Pep 3560 H 09/01/20 09/02/20 05:45 05:57 Creatine Kinase Troponin I NT-Pro-B Natriuret Pep 4810 H 3850 H Impressions: Abdomen/Pelvis CT 08/30/20 00:00 IMPRESSION: Heterogeneous pattern in the liver which is strongly suspicious for multiple masses. Generalize moderate ascites. Findings very worrisome for metastatic disease. Venous Doppler Study 08/30/20 17:06 IMPRESSION: No acute DVT or SVT in either leg. 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 No hydronephrosis. Chest X-Ray 09/02/20 06:00 IMPRESSION: Persistent consolidation left lateral lung base, unchanged from 08/30/2020 Assessment & Plan - Diagnosis (1) Acute kidney injury Is this a current diagnosis for this admission?: Yes (2) Pneumonia Qualifiers: Pneumonia type: due to unspecified organism Laterality: left Lung location: lower lobe of lung Qualified Code(s): J18.9 - Pneumonia, unspecified organism Is this a current diagnosis for this admission?: Yes Plan: Patient presently not on antibiotic, chest x-ray demonstrated persistent left lower lobe consolidation, continue ceftriaxone and azithromycin to cover community-acquired pathogens (3) Malignant neoplasm of esophagus, unspecified Is this a current diagnosis for this admission?: Yes Plan: oncology following - Time Time Spent with patient: 15-24 minutes Level of Care: IMCU Medications reviewed and adjusted accordingly: Yes Anticipated DC Timeframe: Other
[2020-09-03] MEDS: AZITHROMYCIN 500 MG in DEXTROSE 5%-WATER 250 ML IV SCH (17:10)
[2020-09-03] MEDS: CEFTRIAXONE 1 GM/D5W RTU 1 GM/50 ML RTUPB IV SCH ×2 (17:11→19:31)
[2020-09-03] MEDS: PHARMACY COMMUNICATION ORDER MC SCH (17:24)
[2020-09-03] MEDS: SIMETHICONE 80 MG TAB.CHEW PO PRN (19:40)
[2020-09-03] MEDS ORDERED: POLYETHYLENE GLYCOL 3350 POWDER 17 GM/1 PACKET PO ONE (20:15)
[2020-09-04] MEDS: NORMAL SALINE 1000 ML 1,000 ML IV PRN ×3 (00:14→21:51)
[2020-09-04] MEDS: PANTOPRAZOLE SODIUM 40 MG TABLET.DR PO SCH ×2 (05:26→17:02)
[2020-09-04] MEDS: INSULIN LISPRO 100 UNIT/ML 3 ML VIAL SUBCUT SCH ×4 (08:09→21:57)
--- NOTE | 2020-09-04 08:13 | PDOC PROGRESS REPORT ---
Subjective Date:: 09/04/20 Subjective:: Looking a bit better. Cr had improved on friday but no blood could be obtained from port. PLanning port study this am. Reason For Visit: RENAL FAILUREP Physical Exam Vital Signs: Temp Pulse Resp BP Pulse Ox 97.3 F 84 18 109/64 96 09/04/20 07:17 09/04/20 07:17 09/04/20 07:17 09/04/20 07:17 09/04/20 07:17 Intake & Output 09/03/20 09/04/20 09/05/20 06:59 06:59 06:59 Intake Total 4092 2785 Output Total 1250 550 Balance 2842 2235 Weight 139.1 kg 143.9 kg General appearance: PRESENT: no acute distress, well-developed, well-nourished Head exam: PRESENT: atraumatic, normocephalic Eye exam: PRESENT: conjunctiva pink, EOMI, PERRLA. ABSENT: scleral icterus Ear exam: PRESENT: normal external ear exam Mouth exam: PRESENT: moist, tongue midline Neck exam: ABSENT: carotid bruit, JVD, lymphadenopathy, thyromegaly Respiratory exam: PRESENT: clear to auscultation darron. ABSENT: rales, rhonchi, wheezes Cardiovascular exam: PRESENT: RRR. ABSENT: diastolic murmur, rubs, systolic murmur Pulses: PRESENT: normal dorsalis pedis pul Vascular exam: PRESENT: normal capillary refill GI/Abdominal exam: PRESENT: normal bowel sounds, soft. ABSENT: distended, guarding, mass, organolmegaly, rebound, tenderness Rectal exam: PRESENT: deferred Extremities exam: PRESENT: full ROM. ABSENT: calf tenderness, clubbing, pedal edema Neurological exam: PRESENT: alert, awake, oriented to person, oriented to place, oriented to time, oriented to situation, CN II-XII grossly intact. ABSENT: motor sensory deficit Psychiatric exam: PRESENT: appropriate affect, normal mood. ABSENT: homicidal ideation, suicidal ideation Skin exam: PRESENT: dry, intact, warm. ABSENT: cyanosis, rash Results Laboratory Results: 09/02/20 05:57 09/03/20 06:15 09/03/20 06:15 TSH 1.56 08/30/20 08/31/20 09/01/20 16:40 06:50 05:45 Creatine Kinase 207 H Troponin I < 0.012 NT-Pro-B Natriuret Pep 3560 H 09/01/20 09/02/20 05:45 05:57 Creatine Kinase Troponin I NT-Pro-B Natriuret Pep 4810 H 3850 H Impressions: Abdomen/Pelvis CT 08/30/20 00:00 IMPRESSION: Heterogeneous pattern in the liver which is strongly suspicious for multiple masses. Generalize moderate ascites. Findings very worrisome for metastatic disease. Venous Doppler Study 08/30/20 17:06 IMPRESSION: No acute DVT or SVT in either leg. 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 No hydronephrosis. Chest X-Ray 09/02/20 06:00 IMPRESSION: Persistent consolidation left lateral lung base, unchanged from 08/30/2020 Assessment & Plan - Diagnosis (1) Esophageal cancer Qualifiers: Malignant neoplasm of esophagus location: lower third Qualified Code(s): 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 Is this a current diagnosis for this admission?: Yes Plan: Awaiting renal recovery to start rx. Will follow (2) Acute renal failure Qualifiers: Acute renal failure type: unspecified Qualified Code(s): N17.9 - Acute kidney failure, unspecified Is this a current diagnosis for this admission?: Yes Plan: Improving - Time Time Spent with patient: 15-24 minutes
[2020-09-04] MEDS: POLYETHYLENE GLYCOL 3350 POWDER 17 GM/1 PACKET PO SCH (09:23)
[2020-09-04] MEDS: GABAPENTIN 300 MG CAPSULE PO SCH (09:43)
[2020-09-04 09:44] LABS: ALKALINE PHOSPHATASE 451 U/L (38-126); ANION GAP 13 (5-19); ASPARTATE AMINO TRANSFERASE 287 U/L (17-59); BILIRUBIN,DIRECT 3.1 mg/dL (0.0-0.4); BILIRUBIN,TOTAL 3.8 mg/dL (0.2-1.3); BLOOD UREA NITROGEN 81 mg/dL (7-20); CALCIUM 8.8 mg/dL (8.4-10.2); CARBON DIOXIDE 24 mmol/L (22-30); CHLORIDE 101 mmol/L (98-107); GLUCOSE 96 mg/dL (75-110); POTASSIUM 4.2 mmol/L (3.6-5.0); TOTAL PROTEIN 6.3 g/dL (6.3-8.2)
--- NOTE | 2020-09-04 11:40 | PDOC PROGRESS REPORT ---
Subjective Date:: 09/04/20 Subjective:: Patient is currently doing fair His kidney function is all improving Is denied any chest pain no short of breath Reason For Visit: RENAL FAILUREP Physical Exam Vital Signs: Temp Pulse Resp BP Pulse Ox 97.3 F 84 18 109/64 96 09/04/20 08:16 09/04/20 07:17 09/04/20 07:17 09/04/20 07:17 09/04/20 07:17 Intake & Output 09/03/20 09/04/20 09/05/20 06:59 06:59 06:59 Intake Total 4092 2785 1000 Output Total 1250 550 Balance 2842 2235 1000 Weight 139.1 kg 143.9 kg General appearance: PRESENT: no acute distress, obese Eye exam: PRESENT: PERRLA Mouth exam: PRESENT: neck supple Respiratory exam: PRESENT: clear to auscultation darron Cardiovascular exam: PRESENT: +S1, +S2 GI/Abdominal exam: PRESENT: normal bowel sounds, soft Neurological exam: PRESENT: alert, awake, oriented to person, oriented to place Skin exam: PRESENT: dry Results Laboratory Results: 09/02/20 05:57 09/04/20 08:50 09/04/20 08:50 Sodium 138.4 Potassium 4.2 Chloride 101 Carbon Dioxide 24 Anion Gap 13 BUN 81 H Creatinine 3.03 H Est GFR ( Amer) 25 L Glucose 96 Calcium 8.8 Total Bilirubin 3.8 H AST 287 H Alkaline Phosphatase 451 H Total Protein 6.3 Albumin 3.0 L 08/30/20 08/31/20 09/01/20 16:40 06:50 05:45 Creatine Kinase 207 H Troponin I < 0.012 NT-Pro-B Natriuret Pep 3560 H 09/01/20 09/02/20 05:45 05:57 Creatine Kinase Troponin I NT-Pro-B Natriuret Pep 4810 H 3850 H Impressions: Abdomen/Pelvis CT 08/30/20 00:00 IMPRESSION: Heterogeneous pattern in the liver which is strongly suspicious for multiple masses. Generalize moderate ascites. Findings very worrisome for metastatic disease. Venous Doppler Study 08/30/20 17:06 IMPRESSION: No acute DVT or SVT in either leg. 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 No hydronephrosis. Chest X-Ray 09/02/20 06:00 IMPRESSION: Persistent consolidation left lateral lung base, unchanged from 08/30/2020 Assessment & Plan - Diagnosis (1) Acute renal failure Qualifiers: Acute renal failure type: unspecified Qualified Code(s): N17.9 - Acute kidney failure, unspecified Is this a current diagnosis for this admission?: Yes (2) Diastolic congestive heart failure Qualifiers: Heart failure chronicity: acute on chronic Qualified Code(s): I50.33 - Acute on chronic diastolic (congestive) heart failure Is this a current diagnosis for this admission?: Yes (3) Jaundice Is this a current diagnosis for this admission?: Yes (4) Atrial fibrillation Qualifiers: Atrial fibrillation type: unspecified chronic Qualified Code(s): I48.20 - Chronic atrial fibrillation, unspecified; I48.2 - Chronic atrial fibrillation Is this a current diagnosis for this admission?: Yes (5) Hypotension Qualifiers: Hypotension type: unspecified hypotension type Qualified Code(s): I95.9 - Hypotension, unspecified Is this a current diagnosis for this admission?: Yes (6) Protein malnutrition Is this a current diagnosis for this admission?: Yes (7) Ascites Qualifiers: Ascites type: malignant Qualified Code(s): R18.0 - Malignant ascites Is this a current diagnosis for this admission?: Yes (8) Esophageal cancer Qualifiers: Malignant neoplasm of esophagus location: lower third Qualified Code(s): 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 Is this a current diagnosis for this admission?: Yes (9) Abnormal TSH Is this a current diagnosis for this admission?: Yes (10) Type 2 diabetes mellitus Qualifiers: Diabetes mellitus correction insulin use: without terminal supervisor use Chronic kidney disease stage: stage 4 (severe) Is this a current diagnosis for this admission?: Yes - Time Time Spent with patient: 15-24 minutes Level of Care: IMCU Medications reviewed and adjusted accordingly: Yes Anticipated discharge: Other Anticipated DC Timeframe: Other - Plan Summary Plan Summary: Continues the current medications
--- NOTE | 2020-09-04 15:52 | PDOC PROGRESS REPORT ---
Subjective Date:: 09/04/20 Reason For Visit: Patient generally feeling about the same. He denies any specific complaints of any chest pain, fever or chills. Mild shortness of breath which he attributes to his COPD. Labs and medications were reviewed. Improving renal numbers. Has been having good urine output but dropped some in last 24 hours. Appetite is improving. Physical Exam Vital Signs: Temp Pulse Resp BP Pulse Ox 97.7 F 96 18 92/54 L 96 09/04/20 11:10 09/04/20 14:00 09/04/20 11:10 09/04/20 11:10 09/04/20 11:10 Intake & Output 09/03/20 09/04/20 09/05/20 06:59 06:59 06:59 Intake Total 4092 2785 1000 Output Total 1250 550 Balance 2842 2235 1000 Weight 139.1 kg 143.9 kg General appearance: PRESENT: no acute distress Respiratory exam: PRESENT: clear to auscultation darron, decreased breath sounds. ABSENT: crackles Cardiovascular exam: PRESENT: +S1, +S2 GI/Abdominal exam: PRESENT: ascites, distended, organomegaly, soft, tenderness - RUQ. ABSENT: firm, guarding, normal bowel sounds Extremities exam: ABSENT: pedal edema Neurological exam: PRESENT: alert, awake, oriented to person, oriented to place Psychiatric exam: PRESENT: appropriate affect Results Laboratory Results: 09/02/20 05:57 09/04/20 08:50 09/04/20 08:50 Sodium 138.4 Potassium 4.2 Chloride 101 Carbon Dioxide 24 Anion Gap 13 BUN 81 H Creatinine 3.03 H Est GFR ( Amer) 25 L Glucose 96 Calcium 8.8 Total Bilirubin 3.8 H AST 287 H Alkaline Phosphatase 451 H Total Protein 6.3 Albumin 3.0 L 08/30/20 08/31/20 09/01/20 16:40 06:50 05:45 Creatine Kinase 207 H Troponin I < 0.012 NT-Pro-B Natriuret Pep 3560 H 09/01/20 09/02/20 05:45 05:57 Creatine Kinase Troponin I NT-Pro-B Natriuret Pep 4810 H 3850 H Impressions: Abdomen/Pelvis CT 08/30/20 00:00 IMPRESSION: Heterogeneous pattern in the liver which is strongly suspicious for multiple masses. Generalize moderate ascites. Findings very worrisome for metastatic disease. Venous Doppler Study 08/30/20 17:06 IMPRESSION: No acute DVT or SVT in either leg. 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 No hydronephrosis. Chest X-Ray 09/02/20 06:00 IMPRESSION: Persistent consolidation left lateral lung base, unchanged from 08/30/2020 Assessment & Plan - Diagnosis (1) Acute renal failure Qualifiers: Acute renal failure type: unspecified Qualified Code(s): N17.9 - Acute kidney failure, unspecified Is this a current diagnosis for this admission?: Yes Plan: Currently nonoliguric. Improving renal numbers as creatinine has dropped to 3. Continue current guidelines. No indications for renal replacements.Start low- dose oral diuretics . 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 Recent diagnosis. Being managed by Dr. Lopez/[facility] oncologist. (3) Liver metastases Plan: From primary esophageal cancer. (4) Ascites Qualifiers: Ascites type: malignant Qualified Code(s): R18.0 - Malignant ascites Is this a current diagnosis for this admission?: Yes Plan: Probably secondary to liver disease/third spacing. No indications for paracentesis currently. Monitor. (5) Hypotension Qualifiers: Hypotension type: unspecified hypotension type Qualified Code(s): I95.9 - Hypotension, unspecified Is this a current diagnosis for this admission?: Yes Plan: Possibly combination of prerenal/third spacing. Monitor. No evidences of any cardiac dysfunction as per echocardiogram reported by Dr. Lopez from the previous hospital. Cardiology involved. No evidences of sepsis. Continue on IV fluids. Monitor. (6) Diastolic congestive heart failure Qualifiers: Heart failure chronicity: acute on chronic Qualified Code(s): I50.33 - Acute on chronic diastolic (congestive) heart failure Is this a current diagnosis for this admission?: Yes Plan: Follow-up on echocardiogram. (7) Atrial fibrillation Qualifiers: Atrial fibrillation type: unspecified chronic Qualified Code(s): I48.20 - Chronic atrial fibrillation, unspecified; I48.2 - Chronic atrial fibrillation Is this a current diagnosis for this admission?: Yes Plan: Paroxysmal. As per cardiology. (8) Type 2 diabetes mellitus Qualifiers: Diabetes mellitus snf insulin use: without long winder tender use Chronic kidney disease stage: stage 4 (severe) Is this a current diagnosis for this admission?: Yes Plan: As per Dr. Garrido. (9) Abnormal prothrombin time (PT) Plan: Likely from his abnormal liver functions. Monitor.
[2020-09-04] MEDS: CEFTRIAXONE 1 GM/D5W RTU 1 GM/50 ML RTUPB IV SCH (17:02)
[2020-09-04] MEDS: PHARMACY COMMUNICATION ORDER MC SCH (17:02)
[2020-09-04] MEDS: FUROSEMIDE 20 MG TABLET PO SCH (17:02)
[2020-09-04] MEDS: AZITHROMYCIN 500 MG in DEXTROSE 5%-WATER 250 ML IV SCH (17:54)
--- NOTE | 2020-09-04 19:24 | Progress Note ---
Provider Note Provider Note: CARDIOLOGY PROGRESS NOTE by Dr. Mary Dobbs on 09/04/2020. SUBJECTIVE: The patient denies some more shortness of breath than his usual baseline shortness of breath due to COPD. He has no chest pain discomfort. He has no PND orthopnea there is no recurrence of atrial fibrillation. For some reason his urine output the last 24 hours is come down. But he does not appear to be in heart failure. His renal function are improving. His leg edema is about the same. There is no atrial or ventricular arrhythmias seen on the monitor. PHYSICAL EXAMINATION: The patient is morbidly obese. In no acute distress. Selected Entries 09/04/20 16:03 Temperature 97.6 F Temperature Oral Source Pulse Rate 94 Respiratory 19 Rate Blood Pressure 95/50 L Blood Pressure 65 Mean BP Location Right Arm BP Position Supine O2 Sat by Pulse 96 Oximetry Oxygen Delivery Room Air Method Head: Is atraumatic normocephalic. EYES: Pupils are equal round regular reactive to light and accommodation. Extraocular movements are normal. There is no conjunctival pallor. There is no scleral icterus. EARS: Tympanic membranes are intact. External auditory canals clear. NOSE: There is no deviated nasal septum. There is no inflammation nasal mucous membrane. MOUTH: Mucous membranes of mouth are dry tongue is dry there is no ulcers there is no bleeding from the gums. Throat: There is no redness of the oropharynx. There is no exudates. SKIN: There is no skin rashes. There is no petechia or ecchymosis. NECK: Supple. There is no JVD. Carotids are equal there is no bruit there is no lymphadenopathy there is no goiter. LUNGS: There is no accessory muscle respiration in use. Trachea central. Lungs: Shows slightly decreased air entry bilaterally without any rhonchi rales or wheezing. There is slightly increased expiration. HEART: S1-S2 is heard. There is no S3 gallop. There is no S4 gallop. There is systolic murmur left sternal border and the apex with no radiation. There is no rub. ABDOMEN: Soft. There is nontender. There is no hepatosplenomegaly. Bowel sounds are well heard. Abdomen is obese. Upper extremities: Femorals are deep. There is no femoral bruits. Leg pulses are difficult to palpate. There is 1+ to 2 - pedal edema bilaterally. There is no DVT or cellulitis. There is no cyanosis or clubbing. [employer]: The patient is conscious awake alert oriented x3 with no focal deficit. Psychiatric: The patient judgment insight are intact. And affect is normal. The patient's 24-hour intake is 2785 mL. Output is 550 mL. The patient is making about 75 cc of urine per hour. Labs- All tests 24 hr 09/03/20 09/04/20 09/04/20 21:26 07:19 08:50 Sodium 138.4 Potassium 4.2 Chloride 101 Carbon Dioxide 24 Anion Gap 13 BUN 81 H Creatinine 3.03 H Est GFR ( Amer) 25 L Est GFR (MDRD) Non-Af 21 L Glucose 96 POC Glucose 116 H 85 Calcium 8.8 Total Bilirubin 3.8 H Direct Bilirubin 3.1 H Neonat Total Bilirubin Not Reportable Neonat Direct Bilirubin Not Reportable Neonat Indirect Bili Not Reportable AST 287 H ALT 34 Alkaline Phosphatase 451 H Total Protein 6.3 Albumin 3.0 L 09/04/20 09/04/20 11:13 16:05 Sodium Potassium Chloride Carbon Dioxide Anion Gap BUN Creatinine Est GFR ( Amer) Est GFR (MDRD) Non-Af Glucose POC Glucose 98 109 Calcium Total Bilirubin Direct Bilirubin Neonat Total Bilirubin Neonat Direct Bilirubin Neonat Indirect Bili AST ALT Alkaline Phosphatase Total Protein Albumin Abdomen/Pelvis CT 08/30/20 00:00 IMPRESSION: Heterogeneous pattern in the liver which is strongly suspicious for multiple masses. Generalize moderate ascites. Findings very worrisome for metastatic disease. Chest X-Ray 08/30/20 16:23 IMPRESSION: Nonspecific parenchymal opacities left base. Venous Doppler Study 08/30/20 17:06 IMPRESSION: No acute DVT or SVT in either leg. 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 No hydronephrosis. Chest X-Ray 09/02/20 06:00 IMPRESSION: Persistent consolidation left lateral lung base, unchanged from 08/30/2020 IMPRESSION/RECOMMENDATION: 1. Hypotension most likely secondary to dehydration. His blood pressure has improved and he is off the dopamine drip. 2. Leg edema most likely secondary to low albumin and liver disease. No evidence of heart failure. 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 There could be an element of venous insufficiency also. This is definitely not due to heart failure. 3. Acute renal failure: Most likely secondary to dehydration. 4. Paroxysmal atrial fibrillation/flutter. Watch for recurrence. 5. Severe dehydration: Continue IV fluids. 6. Hypothyroidism: Continue replacement. With just 4 days of thyroid replacement the TSH came down from 12 to a normal level of 1.56. As there is probably a lab error. We will hold the Synthroid for now. 7. Esophageal cancer with liver mets. 8. 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 89 History of hypertension 10 History of COPD. No evidence of acute exacerbation. 11. Symptoms of of sleep apnea: Patient recommended to have a sleep study as an outpatient.. 12. Diabetes mellitus type 2 continue antidiabetic treatment and and periodic Accu-Cheks. 13. Abnormal liver function tests: Secondary to liver mets. 14. Protein malnutrition: Recommend high-protein diet. Recommend a can of Ensure twice a day at least. 15. Morbid obesity. 16. Abnormal chest x-ray: The patient is on antibiotics. The patient has no fever or increased white count or cough. 17. No evidence of heart failure systolic or diastolic. This has been repeatedly discussed with the bookbinder chief, the oncologist, and the attending physician Dr. Garrido 18. Probable Port-A-Cath malfunction: This is being addressed, by the attending provider. Medications reviewed. Medical regimen and management plan discussed with attending physician on the case medical decision making is of high complexity in view of the need to titrate dopamine. 40 minutes spent as patient more than 50% of time spent on direct patient care. Cardiac status is stable. We will sign off. Please reconsult me if any new cardiology problems arise. The patient can follow-up with me as an outpatient for his paroxysmal atrial fibrillation.
[2020-09-05] MEDS: PANTOPRAZOLE SODIUM 40 MG TABLET.DR PO SCH ×2 (05:28→17:25)
[2020-09-05 06:56] LABS: HEMATOCRIT 29.6 % (37.9-51.0); MEAN CORPUSCULAR HEMOGLOBIN 33.3 pg (27.0-33.4); MEAN CORPUSCULAR HGB CONC 33.8 g/dL (32.0-36.0); MEAN CORPUSCULAR VOLUME 98 fl (80-97); PLATELET COUNT 168 10^3/uL (150-450); RED BLOOD COUNT 3.02 10^6/uL (4.35-5.55); WHITE BLOOD COUNT 10.2 10^3/uL (4.0-10.5)
[2020-09-05 07:24] LABS: ALBUMIN 2.9 g/dL (3.5-5.0); ALKALINE PHOSPHATASE 465 U/L (38-126); ANION GAP 12 (5-19); ASPARTATE AMINO TRANSFERASE 355 U/L (17-59); BILIRUBIN,DIRECT 3.2 mg/dL (0.0-0.4); BILIRUBIN,TOTAL 3.9 mg/dL (0.2-1.3); BLOOD UREA NITROGEN 81 mg/dL (7-20); CALCIUM 8.9 mg/dL (8.4-10.2); CARBON DIOXIDE 22 mmol/L (22-30); CHLORIDE 103 mmol/L (98-107); GLUCOSE 87 mg/dL (75-110); POTASSIUM 4.6 mmol/L (3.6-5.0); TOTAL PROTEIN 6.2 g/dL (6.3-8.2)
[2020-09-05] MEDS: INSULIN LISPRO 100 UNIT/ML 3 ML VIAL SUBCUT SCH ×4 (07:49→22:10)
--- NOTE | 2020-09-05 08:21 | PDOC PROGRESS REPORT ---
Subjective Date:: 09/05/20 Subjective:: Cr better overall but u/o still low. Feels like getting up Reason For Visit: RENAL FAILUREP Physical Exam Vital Signs: Temp Pulse Resp BP Pulse Ox 98.0 F 92 18 122/73 99 09/05/20 07:56 09/05/20 07:00 09/05/20 03:31 09/05/20 03:31 09/05/20 03:31 Intake & Output 09/04/20 09/05/20 09/06/20 06:59 06:59 06:59 Intake Total 2785 3522 Output Total 550 725 Balance 2235 2797 Weight 143.9 kg 144.4 kg General appearance: PRESENT: no acute distress, well-developed, well-nourished Head exam: PRESENT: atraumatic, normocephalic Eye exam: PRESENT: conjunctiva pink, EOMI, PERRLA. ABSENT: scleral icterus Ear exam: PRESENT: normal external ear exam Mouth exam: PRESENT: moist, tongue midline Neck exam: ABSENT: carotid bruit, JVD, lymphadenopathy, thyromegaly Respiratory exam: PRESENT: clear to auscultation darron. ABSENT: rales, rhonchi, wheezes Cardiovascular exam: PRESENT: RRR. ABSENT: diastolic murmur, rubs, systolic murmur Pulses: PRESENT: normal dorsalis pedis pul Vascular exam: PRESENT: normal capillary refill GI/Abdominal exam: PRESENT: normal bowel sounds, soft. ABSENT: distended, guarding, mass, organolmegaly, rebound, tenderness Rectal exam: PRESENT: deferred Extremities exam: PRESENT: full ROM. ABSENT: calf tenderness, clubbing, pedal edema Neurological exam: PRESENT: alert, awake, oriented to person, oriented to place, oriented to time, oriented to situation, CN II-XII grossly intact. ABSENT: motor sensory deficit Psychiatric exam: PRESENT: appropriate affect, normal mood. ABSENT: homicidal ideation, suicidal ideation Skin exam: PRESENT: dry, intact, warm. ABSENT: cyanosis, rash Results Laboratory Results: 09/05/20 06:04 09/05/20 06:04 09/04/20 09/05/20 09/05/20 08:50 06:04 06:04 WBC 10.2 RBC 3.02 L Hgb 10.0 L Hct 29.6 L MCV 98 H MCH 33.3 MCHC 33.8 RDW 20.0 H Plt Count 168 Sodium 138.4 137.4 Potassium 4.2 4.6 Chloride 101 103 Carbon Dioxide 24 22 Anion Gap 13 12 BUN 81 H 81 H Creatinine 3.03 H 3.08 H Est GFR ( Amer) 25 L 25 L Glucose 96 87 Calcium 8.8 8.9 Total Bilirubin 3.8 H 3.9 H AST 287 H 355 H Alkaline Phosphatase 451 H 465 H Total Protein 6.3 6.2 L Albumin 3.0 L 2.9 L 08/30/20 19:38 Blood Blood Culture - Final NO GROWTH IN 5 DAYS 08/30/20 19:02 Blood Blood Culture - Final NO GROWTH IN 5 DAYS 08/30/20 08/31/20 09/01/20 16:40 06:50 05:45 Creatine Kinase 207 H Troponin I < 0.012 NT-Pro-B Natriuret Pep 3560 H 09/01/20 09/02/20 05:45 05:57 Creatine Kinase Troponin I NT-Pro-B Natriuret Pep 4810 H 3850 H Impressions: Abdomen/Pelvis CT 08/30/20 00:00 IMPRESSION: Heterogeneous pattern in the liver which is strongly suspicious for multiple masses. Generalize moderate ascites. Findings very worrisome for metastatic disease. Venous Doppler Study 08/30/20 17:06 IMPRESSION: No acute DVT or SVT in either leg. 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 No hydronephrosis. Chest X-Ray 09/02/20 06:00 IMPRESSION: Persistent consolidation left lateral lung base, unchanged from 08/30/2020 Assessment & Plan - Diagnosis (1) Esophageal cancer Qualifiers: Malignant neoplasm of esophagus location: lower third Qualified Code(s): 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 Is this a current diagnosis for this admission?: Yes Plan: Still hopeful that we can initiate therapy. If cr can get into 2 range, we maybe able to start some form of therapy. (2) Acute renal failure Qualifiers: Acute renal failure type: unspecified Qualified Code(s): N17.9 - Acute kidney failure, unspecified Is this a current diagnosis for this admission?: Yes Plan: Slowly improving. - Time Time Spent with patient: 35 or more minutes
[2020-09-05] MEDS: NORMAL SALINE 1000 ML 1,000 ML IV PRN (08:23)
[2020-09-05] MEDS: FUROSEMIDE 20 MG TABLET PO SCH (09:09)
[2020-09-05] MEDS: POLYETHYLENE GLYCOL 3350 POWDER 17 GM/1 PACKET PO SCH (09:09)
[2020-09-05] MEDS: HEPARIN SOD (PORCINE) 5,000 UNIT/ML 1 ML VIAL SUBCUT SCH ×2 (09:10→17:25)
[2020-09-05] MEDS: GABAPENTIN 300 MG CAPSULE PO SCH (09:10)
[2020-09-05] MEDS ORDERED: FUROSEMIDE INJ/PF 20 MG/2 ML SDV IV ONE (09:15)
--- NOTE | 2020-09-05 10:02 | PDOC PROGRESS REPORT ---
Subjective Date:: 09/05/20 Subjective:: Patient is currently doing fair No chest pain no short of breath Patient's creatinine is pretty much same Discussed with Dr. Braun continues the Marques catheter he will readjust more medications Reason For Visit: RENAL FAILUREP Physical Exam Vital Signs: Temp Pulse Resp BP Pulse Ox 98.0 F 92 18 122/73 99 09/05/20 07:56 09/05/20 07:00 09/05/20 03:31 09/05/20 03:31 09/05/20 03:31 Intake & Output 09/04/20 09/05/20 09/06/20 06:59 06:59 06:59 Intake Total 2785 3522 1000 Output Total 550 725 Balance 2235 2797 1000 Weight 143.9 kg 144.4 kg General appearance: PRESENT: no acute distress, well-developed, well-nourished Head exam: PRESENT: atraumatic, normocephalic Eye exam: PRESENT: conjunctiva pink, EOMI, PERRLA. ABSENT: scleral icterus Ear exam: PRESENT: normal external ear exam Mouth exam: PRESENT: moist, tongue midline Neck exam: PRESENT: full ROM. ABSENT: carotid bruit, JVD, lymphadenopathy, thyromegaly Respiratory exam: PRESENT: clear to auscultation darron Cardiovascular exam: PRESENT: RRR. ABSENT: diastolic murmur, rubs, systolic murmur Pulses: PRESENT: normal dorsalis pedis pul, +2 pedal pulses bilateral Vascular exam: PRESENT: normal capillary refill GI/Abdominal exam: PRESENT: normal bowel sounds, soft. ABSENT: distended, guarding, mass, organolmegaly, rebound, tenderness Rectal exam: PRESENT: deferred Extremities exam: PRESENT: pedal edema Neurological exam: PRESENT: alert, awake, oriented to person, oriented to place, oriented to time, oriented to situation, CN II-XII grossly intact. ABSENT: motor sensory deficit Psychiatric exam: PRESENT: appropriate affect, normal mood. ABSENT: homicidal ideation, suicidal ideation Skin exam: PRESENT: dry, intact, warm. ABSENT: cyanosis, rash Results Laboratory Results: 09/05/20 06:04 09/05/20 06:04 09/05/20 09/05/20 06:04 06:04 WBC 10.2 RBC 3.02 L Hgb 10.0 L Hct 29.6 L MCV 98 H MCH 33.3 MCHC 33.8 RDW 20.0 H Plt Count 168 Sodium 137.4 Potassium 4.6 Chloride 103 Carbon Dioxide 22 Anion Gap 12 BUN 81 H Creatinine 3.08 H Est GFR ( Amer) 25 L Glucose 87 Calcium 8.9 Total Bilirubin 3.9 H AST 355 H Alkaline Phosphatase 465 H Total Protein 6.2 L Albumin 2.9 L 08/30/20 19:38 Blood Blood Culture - Final NO GROWTH IN 5 DAYS 08/30/20 19:02 Blood Blood Culture - Final NO GROWTH IN 5 DAYS 08/30/20 08/31/20 09/01/20 16:40 06:50 05:45 Creatine Kinase 207 H Troponin I < 0.012 NT-Pro-B Natriuret Pep 3560 H 09/01/20 09/02/20 05:45 05:57 Creatine Kinase Troponin I NT-Pro-B Natriuret Pep 4810 H 3850 H Impressions: Abdomen/Pelvis CT 08/30/20 00:00 IMPRESSION: Heterogeneous pattern in the liver which is strongly suspicious for multiple masses. Generalize moderate ascites. Findings very worrisome for metastatic disease. Venous Doppler Study 08/30/20 17:06 IMPRESSION: No acute DVT or SVT in either leg. 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 No hydronephrosis. Chest X-Ray 09/02/20 06:00 IMPRESSION: Persistent consolidation left lateral lung base, unchanged from 08/30/2020 Assessment & Plan - Diagnosis (1) Acute renal failure Qualifiers: Acute renal failure type: unspecified Qualified Code(s): N17.9 - Acute kidney failure, unspecified Is this a current diagnosis for this admission?: Yes (2) Diastolic congestive heart failure Qualifiers: Heart failure chronicity: acute on chronic Qualified Code(s): I50.33 - Acute on chronic diastolic (congestive) heart failure Is this a current diagnosis for this admission?: Yes (3) Jaundice Is this a current diagnosis for this admission?: Yes (4) Atrial fibrillation Qualifiers: Atrial fibrillation type: unspecified chronic Qualified Code(s): I48.20 - Chronic atrial fibrillation, unspecified; I48.2 - Chronic atrial fibrillation Is this a current diagnosis for this admission?: Yes (5) Hypotension Qualifiers: Hypotension type: unspecified hypotension type Qualified Code(s): I95.9 - Hypotension, unspecified Is this a current diagnosis for this admission?: Yes (6) Protein malnutrition Is this a current diagnosis for this admission?: Yes (7) Ascites Qualifiers: Ascites type: malignant Qualified Code(s): R18.0 - Malignant ascites Is this a current diagnosis for this admission?: Yes (8) Esophageal cancer Qualifiers: Malignant neoplasm of esophagus location: lower third Qualified Code(s): 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 Is this a current diagnosis for this admission?: Yes (9) Abnormal TSH Is this a current diagnosis for this admission?: Yes (10) Type 2 diabetes mellitus Qualifiers: Diabetes mellitus chcf insulin use: without chcf use Chronic kidney disease stage: stage 4 (severe) Is this a current diagnosis for this admission?: Yes - Time Time Spent with patient: 15-24 minutes Level of Care: IMCU Medications reviewed and adjusted accordingly: Yes Anticipated discharge: Home Anticipated DC Timeframe: Other - Plan Summary Plan Summary: Continues to current medications
[2020-09-05] MEDS: CEFTRIAXONE 1 GM/D5W RTU 1 GM/50 ML RTUPB IV SCH (17:25)
[2020-09-05] MEDS: PHARMACY COMMUNICATION ORDER MC SCH (17:26)
--- NOTE | 2020-09-05 17:53 | PDOC PROGRESS REPORT ---
Subjective Date:: 09/05/20 Reason For Visit: Patient seen today. He generally feels about the same but he thinks his franklyn rtness of breath might be getting a little bit worse with exertion. No complaints of any chest pain, fever or chills. No abdominal pains. Appetite is still pretty fair. Labs and medications were reviewed. His urine output has dropped some relative to his intake. Still has a Marques catheter. Physical Exam Vital Signs: Temp Pulse Resp BP Pulse Ox 97.7 F 98 17 121/78 96 09/05/20 12:11 09/05/20 14:00 09/05/20 08:56 09/05/20 12:11 09/05/20 12:11 Intake & Output 09/04/20 09/05/20 09/06/20 06:59 06:59 06:59 Intake Total 2785 3522 1162 Output Total 550 725 Balance 2235 2797 1162 Weight 143.9 kg 144.4 kg General appearance: PRESENT: no acute distress Respiratory exam: PRESENT: clear to auscultation darron, decreased breath sounds. ABSENT: crackles Cardiovascular exam: PRESENT: +S1, +S2 GI/Abdominal exam: PRESENT: ascites, distended, organomegaly, soft, tenderness - RUQ. ABSENT: firm, guarding, normal bowel sounds Extremities exam: PRESENT: +1 edema Neurological exam: PRESENT: alert, awake, oriented to person, oriented to place Psychiatric exam: PRESENT: anxious Skin exam: ABSENT: erythema, mottled, rash Results Laboratory Results: 09/05/20 06:04 09/05/20 06:04 09/05/20 09/05/20 06:04 06:04 WBC 10.2 RBC 3.02 L Hgb 10.0 L Hct 29.6 L MCV 98 H MCH 33.3 MCHC 33.8 RDW 20.0 H Plt Count 168 Sodium 137.4 Potassium 4.6 Chloride 103 Carbon Dioxide 22 Anion Gap 12 BUN 81 H Creatinine 3.08 H Est GFR ( Amer) 25 L Glucose 87 Calcium 8.9 Total Bilirubin 3.9 H AST 355 H Alkaline Phosphatase 465 H Total Protein 6.2 L Albumin 2.9 L 08/30/20 19:38 Blood Blood Culture - Final NO GROWTH IN 5 DAYS 08/30/20 19:02 Blood Blood Culture - Final NO GROWTH IN 5 DAYS 08/30/20 08/31/20 09/01/20 16:40 06:50 05:45 Creatine Kinase 207 H Troponin I < 0.012 NT-Pro-B Natriuret Pep 3560 H 09/01/20 09/02/20 05:45 05:57 Creatine Kinase Troponin I NT-Pro-B Natriuret Pep 4810 H 3850 H Impressions: Abdomen/Pelvis CT 08/30/20 00:00 IMPRESSION: Heterogeneous pattern in the liver which is strongly suspicious for multiple masses. Generalize moderate ascites. Findings very worrisome for metastatic disease. Venous Doppler Study 08/30/20 17:06 IMPRESSION: No acute DVT or SVT in either leg. 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 No hydronephrosis. Chest X-Ray 09/02/20 06:00 IMPRESSION: Persistent consolidation left lateral lung base, unchanged from 08/30/2020 Assessment & Plan - Diagnosis (1) Acute renal failure Qualifiers: Acute renal failure type: unspecified Qualified Code(s): N17.9 - Acute kidney failure, unspecified Is this a current diagnosis for this admission?: Yes Plan: Currently nonoliguric. Now having fluid overload. Renal numbers are still remaining static. Cut back on fluids and start him on IV/convert to IV diuretics. No indications for renal replacements. 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 Recent diagnosis. Being managed by Dr. oLpez/[facility] oncologist. (3) Liver metastases Plan: From primary esophageal cancer. (4) Ascites Qualifiers: Ascites type: malignant Qualified Code(s): R18.0 - Malignant ascites Is this a current diagnosis for this admission?: Yes Plan: Probably secondary to liver disease/third spacing. No indications for paracentesis currently. Monitor. (5) Hypotension Qualifiers: Hypotension type: unspecified hypotension type Qualified Code(s): I95.9 - Hypotension, unspecified Is this a current diagnosis for this admission?: Yes Plan: Possibly combination of prerenal/third spacing. Monitor. Check a.m. cortisol. Monitor. (6) Diastolic congestive heart failure Qualifiers: Heart failure chronicity: acute on chronic Qualified Code(s): I50.33 - Acute on chronic diastolic (congestive) heart failure Is this a current diagnosis for this admission?: Yes Plan: Follow-up on echocardiogram. (7) Atrial fibrillation Qualifiers: Atrial fibrillation type: unspecified chronic Qualified Code(s): I48.20 - Chronic atrial fibrillation, unspecified; I48.2 - Chronic atrial fibrillation Is this a current diagnosis for this admission?: Yes Plan: Paroxysmal. As per cardiology. (8) Type 2 diabetes mellitus Qualifiers: Diabetes mellitus snf insulin use: without termination clerk use Chronic kidney disease stage: stage 4 (severe) Is this a current diagnosis for this admission?: Yes Plan: As per Dr. Garrido. (9) Abnormal prothrombin time (PT) Plan: Likely from his abnormal liver functions. Monitor.
[2020-09-05] MEDS: AZITHROMYCIN 500 MG in DEXTROSE 5%-WATER 250 ML IV SCH (18:27)
[2020-09-05] MEDS: FUROSEMIDE INJ/PF 20 MG/2 ML SDV IV SCH (21:26)
[2020-09-05] MEDS: ONDANSETRON HCL INJ/PF 4 MG/2 ML SDV IV PRN (21:26)
[2020-09-05] MEDS ORDERED: NORMAL SALINE 1000 ML 1,000 ML IV PRN ×2 (23:17→23:34)
[2020-09-06] MEDS ORDERED: NORMAL SALINE 1000 ML 1,000 ML IV PRN (00:29)
[2020-09-06] MEDS: SIMETHICONE 80 MG TAB.CHEW PO PRN (04:27)
[2020-09-06] MEDS: ONDANSETRON HCL INJ/PF 4 MG/2 ML SDV IV PRN (04:35)
[2020-09-06] MEDS: PANTOPRAZOLE SODIUM 40 MG TABLET.DR PO SCH ×2 (06:32→17:07)
[2020-09-06] MEDS: HEPARIN SOD (PORCINE) 5,000 UNIT/ML 1 ML VIAL SUBCUT SCH ×3 (06:32→17:07)
[2020-09-06 07:18] LABS: ANION GAP 12 (5-19); BLOOD UREA NITROGEN 83 mg/dL (7-20); CALCIUM 8.9 mg/dL (8.4-10.2); CARBON DIOXIDE 23 mmol/L (22-30); CHLORIDE 101 mmol/L (98-107); GLUCOSE 107 mg/dL (75-110); POTASSIUM 5.1 mmol/L (3.6-5.0)
--- NOTE | 2020-09-06 07:55 | PDOC PROGRESS REPORT ---
Subjective Date:: 09/06/20 Subjective:: Nausea this am. Cr up again. Poor u/o Reason For Visit: RENAL FAILUREP Physical Exam Vital Signs: Temp Pulse Resp BP Pulse Ox 97.8 F 90 19 110/67 97 09/06/20 07:45 09/06/20 07:00 09/06/20 03:05 09/06/20 03:05 09/06/20 03:05 Intake & Output 09/05/20 09/06/20 09/07/20 06:59 06:59 06:59 Intake Total 3522 2001 Output Total 725 825 Balance 2797 1177 Weight 144.4 kg 143.5 kg General appearance: PRESENT: no acute distress, well-developed, well-nourished Head exam: PRESENT: atraumatic, normocephalic Eye exam: PRESENT: conjunctiva pink, EOMI, PERRLA. ABSENT: scleral icterus Ear exam: PRESENT: normal external ear exam Mouth exam: PRESENT: moist, tongue midline Neck exam: ABSENT: carotid bruit, JVD, lymphadenopathy, thyromegaly Respiratory exam: PRESENT: clear to auscultation darron. ABSENT: rales, rhonchi, wheezes Cardiovascular exam: PRESENT: RRR. ABSENT: diastolic murmur, rubs, systolic murmur Pulses: PRESENT: normal dorsalis pedis pul Vascular exam: PRESENT: normal capillary refill GI/Abdominal exam: PRESENT: normal bowel sounds, soft. ABSENT: distended, guarding, mass, organolmegaly, rebound, tenderness Rectal exam: PRESENT: deferred Extremities exam: PRESENT: full ROM. ABSENT: calf tenderness, clubbing, pedal edema Neurological exam: PRESENT: alert, awake, oriented to person, oriented to place, oriented to time, oriented to situation, CN II-XII grossly intact. ABSENT: motor sensory deficit Psychiatric exam: PRESENT: appropriate affect, normal mood. ABSENT: homicidal ideation, suicidal ideation Skin exam: PRESENT: dry, intact, warm. ABSENT: cyanosis, rash Results Laboratory Results: 09/05/20 06:04 09/06/20 06:19 09/06/20 06:19 Sodium 136.0 L Potassium 5.1 H Chloride 101 Carbon Dioxide 23 Anion Gap 12 BUN 83 H Creatinine 3.24 H Est GFR ( Amer) 24 L Glucose 107 Calcium 8.9 08/30/20 08/31/20 09/01/20 16:40 06:50 05:45 Creatine Kinase 207 H Troponin I < 0.012 NT-Pro-B Natriuret Pep 3560 H 09/01/20 09/02/20 05:45 05:57 Creatine Kinase Troponin I NT-Pro-B Natriuret Pep 4810 H 3850 H Impressions: Abdomen/Pelvis CT 08/30/20 00:00 IMPRESSION: Heterogeneous pattern in the liver which is strongly suspicious for multiple masses. Generalize moderate ascites. Findings very worrisome for metastatic disease. Venous Doppler Study 08/30/20 17:06 IMPRESSION: No acute DVT or SVT in either leg. 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 No hydronephrosis. Chest X-Ray 09/02/20 06:00 IMPRESSION: Persistent consolidation left lateral lung base, unchanged from 08/30/2020 Assessment & Plan - Diagnosis (1) Esophageal cancer Qualifiers: Malignant neoplasm of esophagus location: lower third Qualified Code(s): 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 Is this a current diagnosis for this admission?: Yes Plan: Was hoping that ARF would be improved today. Will follow. (2) Acute renal failure Qualifiers: Acute renal failure type: unspecified Qualified Code(s): N17.9 - Acute kidney failure, unspecified Is this a current diagnosis for this admission?: Yes Plan: Worsened this am. Followed by nephro and primary team. - Time Time Spent with patient: 35 or more minutes
[2020-09-06] MEDS: INSULIN LISPRO 100 UNIT/ML 3 ML VIAL SUBCUT SCH ×4 (08:43→22:05)
--- NOTE | 2020-09-06 08:48 | PDOC PROGRESS REPORT ---
Subjective Date:: 09/06/20 Subjective:: Patient is complaining some nauseating this morning giving Zofran does not helps Patient's denied any chest pain no short of breath His urine output is very minimal last night Patient's creatinine is getting more worse Reason For Visit: RENAL FAILUREP Physical Exam Vital Signs: Temp Pulse Resp BP Pulse Ox 97.6 F 90 18 102/81 100 09/06/20 07:48 09/06/20 07:48 09/06/20 07:48 09/06/20 07:48 09/06/20 07:48 Intake & Output 09/05/20 09/06/20 09/07/20 06:59 06:59 06:59 Intake Total 3522 2002 Output Total 725 825 Balance 2797 1177 Weight 144.4 kg 143.5 kg General appearance: PRESENT: no acute distress, well-developed, well-nourished Head exam: PRESENT: atraumatic, normocephalic Eye exam: PRESENT: conjunctiva pink, EOMI, PERRLA. ABSENT: scleral icterus Ear exam: PRESENT: normal external ear exam Mouth exam: PRESENT: moist, tongue midline Neck exam: PRESENT: full ROM. ABSENT: carotid bruit, JVD, lymphadenopathy, thyromegaly Respiratory exam: PRESENT: clear to auscultation darron Cardiovascular exam: PRESENT: RRR. ABSENT: diastolic murmur, rubs, systolic murmur Pulses: PRESENT: normal dorsalis pedis pul, +2 pedal pulses bilateral Vascular exam: PRESENT: normal capillary refill GI/Abdominal exam: PRESENT: normal bowel sounds, soft. ABSENT: distended, gua rding, mass, organolmegaly, rebound, tenderness Rectal exam: PRESENT: deferred Neurological exam: PRESENT: alert, awake, oriented to person, oriented to place, oriented to time, oriented to situation, CN II-XII grossly intact. ABSENT: motor sensory deficit Psychiatric exam: PRESENT: appropriate affect, normal mood. ABSENT: homicidal ideation, suicidal ideation Skin exam: PRESENT: dry, intact, warm. ABSENT: cyanosis, rash Results Laboratory Results: 09/05/20 06:04 09/06/20 06:19 09/06/20 06:19 Sodium 136.0 L Potassium 5.1 H Chloride 101 Carbon Dioxide 23 Anion Gap 12 BUN 83 H Creatinine 3.24 H Est GFR ( Amer) 24 L Glucose 107 Calcium 8.9 08/30/20 08/31/20 09/01/20 16:40 06:50 05:45 Creatine Kinase 207 H Troponin I < 0.012 NT-Pro-B Natriuret Pep 3560 H 09/01/20 09/02/20 05:45 05:57 Creatine Kinase Troponin I NT-Pro-B Natriuret Pep 4810 H 3850 H Impressions: Abdomen/Pelvis CT 08/30/20 00:00 IMPRESSION: Heterogeneous pattern in the liver which is strongly suspicious for multiple masses. Generalize moderate ascites. Findings very worrisome for metastatic disease. Venous Doppler Study 08/30/20 17:06 IMPRESSION: No acute DVT or SVT in either leg. 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 Renal Ultrasound 08/30/20 18:31 IMPRESSION: Angio Pramdo lipoma in the right kidney. No hydronephrosis. Chest X-Ray 09/02/20 06:00 IMPRESSION: Persistent consolidation left lateral lung base, unchanged from 08/30/2020 Assessment & Plan - Diagnosis (1) Acute renal failure Qualifiers: Acute renal failure type: unspecified Qualified Code(s): N17.9 - Acute kidney failure, unspecified Is this a current diagnosis for this admission?: Yes (2) Diastolic congestive heart failure Qualifiers: Heart failure chronicity: acute on chronic Qualified Code(s): I50.33 - Acute on chronic diastolic (congestive) heart failure Is this a current diagnosis for this admission?: Yes (3) Jaundice Is this a current diagnosis for this admission?: Yes (4) Atrial fibrillation Qualifiers: Atrial fibrillation type: unspecified chronic Qualified Code(s): I48.20 - C hronic atrial fibrillation, unspecified; I48.2 - Chronic atrial fibrillation Is this a current diagnosis for this admission?: Yes (5) Hypotension Qualifiers: Hypotension type: unspecified hypotension type Qualified Code(s): I95.9 - Hypotension, unspecified Is this a current diagnosis for this admission?: Yes (6) Protein malnutrition Is this a current diagnosis for this admission?: Yes (7) Ascites Qualifiers: Ascites type: malignant Qualified Code(s): R18.0 - Malignant ascites Is this a current diagnosis for this admission?: Yes (8) Esophageal cancer Qualifiers: Malignant neoplasm of esophagus location: lower third Qualified Code(s): 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 Is this a current diagnosis for this admission?: Yes (9) Abnormal TSH Is this a current diagnosis for this admission?: Yes (10) Type 2 diabetes mellitus Qualifiers: Diabetes mellitus halfway insulin use: without halfway use Chronic kidney disease stage: stage 4 (severe) Is this a current diagnosis for this admission?: Yes - Time Time Spent with patient: 15-24 minutes Level of Care: IMCU Medications reviewed and adjusted accordingly: Yes Anticipated discharge: Home Anticipated DC Timeframe: Other - Plan Summary Plan Summary: As per discussed with the cardiology patient's EF is normal at this point patient does not have any acute heart failure patient also have a paroxysmal atrial fibrillation's probably patients may be a get a benefit for anticoagulations but at this stage because of the multiple other comorbidity patient unable to take any newer drugs due to the liver problems the Coumadin is only options discussed with the mental health program manager will see the next course of the hospital how the patients do Patient's overall prognosis is poor according to the mental health program manager patient unable to get the any chemotherapy while the patient's kidney function is not getting better and patients at this point have all issue with the liver We will give her some Phenergan p.o. for the nausea continues the PPI We will discussed with the daughter try to call this morning not answer
[2020-09-06] MEDS ORDERED: PROMETHAZINE HCL 25 MG TABLET PO PRN (10:00)
[2020-09-06] MEDS: GABAPENTIN 300 MG CAPSULE PO SCH (10:23)
[2020-09-06] MEDS: POLYETHYLENE GLYCOL 3350 POWDER 17 GM/1 PACKET PO SCH (10:26)
[2020-09-06] MEDS: FUROSEMIDE INJ/PF 20 MG/2 ML SDV IV SCH (10:27)
[2020-09-06] MEDS ORDERED: FUROSEMIDE IV PRN ×2 (11:11)
[2020-09-06] MEDS ORDERED: NORMAL SALINE IV PRN ×2 (11:11)
--- NOTE | 2020-09-06 11:29 | PDOC PROGRESS REPORT ---
Subjective Date:: 09/06/20 Reason For Visit: Patient was seen this morning. He is not feeling well this morning as he has been nauseous. Therefore he has not eaten anything. Continues to feel very weak and tired. Denies any history of chest pains. No history of any fever or chills. Shortness of breath is somewhat better he thinks. Labs and medications were reviewed. Discussions were letter done with Dr. Lopez/Dr. Garrido. Physical Exam Vital Signs: Temp Pulse Resp BP Pulse Ox 97.6 F 90 18 102/81 100 09/06/20 07:48 09/06/20 07:48 09/06/20 07:48 09/06/20 07:48 09/06/20 07:48 Intake & Output 09/05/20 09/06/20 09/07/20 06:59 06:59 06:59 Intake Total 3522 2002 838 Output Total 725 825 Balance 2797 1177 838 Weight 144.4 kg 143.5 kg General appearance: PRESENT: disheveled Respiratory exam: PRESENT: clear to auscultation darron, decreased breath sounds. ABSENT: crackles Cardiovascular exam: PRESENT: +S1, +S2 GI/Abdominal exam: PRESENT: ascites, distended, organomegaly, soft, tenderness - RUQ. ABSENT: firm, guarding, normal bowel sounds Extremities exam: PRESENT: +2 edema Neurological exam: PRESENT: alert, awake, oriented to person, oriented to place Psychiatric exam: PRESENT: depressed Skin exam: ABSENT: erythema, mottled, rash Results Laboratory Results: 09/05/20 06:04 09/06/20 06:19 09/06/20 06:19 Sodium 136.0 L Potassium 5.1 H Chloride 101 Carbon Dioxide 23 Anion Gap 12 BUN 83 H Creatinine 3.24 H Est GFR ( Amer) 24 L Glucose 107 Calcium 8.9 08/30/20 08/31/20 09/01/20 16:40 06:50 05:45 Creatine Kinase 207 H Troponin I < 0.012 NT-Pro-B Natriuret Pep 3560 H 09/01/20 09/02/20 05:45 05:57 Creatine Kinase Troponin I NT-Pro-B Natriuret Pep 4810 H 3850 H Impressions: Abdomen/Pelvis CT 08/30/20 00:00 IMPRESSION: Heterogeneous pattern in the liver which is strongly suspicious for multiple masses. Generalize moderate ascites. Findings very worrisome for metastatic disease. Venous Doppler Study 08/30/20 17:06 IMPRESSION: No acute DVT or SVT in either leg. 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 No hydronephrosis. Chest X-Ray 09/02/20 06:00 IMPRESSION: Persistent consolidation left lateral lung base, unchanged from 08/30/2020 Assessment & Plan - Diagnosis (1) Acute renal failure Qualifiers: Acute renal failure type: unspecified Qualified Code(s): N17.9 - Acute kidney failure, unspecified Is this a current diagnosis for this admission?: Yes Plan: Is nonoliguric. However he has got fluid overload which looks more peripheral than central. We will convert his Lasix to an infusion and see the response along with addition of albumin. If he is not responding adequately to the above measures will have to consider renal replacements especially if the prognosis with aggressive chemotherapy for the stage IV esophageal cancer is good. Renal replacements for fluid removal in the face of tenuous blood pressure will be difficult and we do not have CVVH. Therefore had a discussion with Dr. Lopez who opined that given his advanced stage IV cancer of the esophagus chemotherapy is not expected to produce any substantial life expectancy. Therefore he is going to talk with him in the morning and see if patient wants any aggressive treatment including renal replacement if life expectancy is poor and chemotherapy in the face of potential ESRD would be difficult. 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 Recent diagnosis. Being managed by Dr. Lopez/[facility] oncologist.Poor prognosis. (3) Liver metastases Plan: From primary esophageal cancer. (4) Ascites Qualifiers: Ascites type: malignant Qualified Code(s): R18.0 - Malignant ascites Is this a current diagnosis for this admission?: Yes Plan: Probably secondary to liver disease/third spacing. No indications for paracentesis currently. Monitor. (5) Hypotension Qualifiers: Hypotension type: unspecified hypotension type Qualified Code(s): I95.9 - Hypotension, unspecified Is this a current diagnosis for this admission?: Yes Plan: Improving. However still inadequate. We will add midodrine. Cortisol this morning was normal. (6) Diastolic congestive heart failure Qualifiers: Heart failure chronicity: acute on chronic Qualified Code(s): I50.33 - Acute on chronic diastolic (congestive) heart failure Is this a current diagnosis for this admission?: Yes Plan: Follow-up on echocardiogram. (7) Atrial fibrillation Qualifiers: Atrial fibrillation type: unspecified chronic Qualified Code(s): I48.20 - Chronic atrial fibrillation, unspecified; I48.2 - Chronic atrial fibrillation Is this a current diagnosis for this admission?: Yes Plan: Paroxysmal. As per cardiology. (8) Type 2 diabetes mellitus Qualifiers: Diabetes mellitus oil field pumper insulin use: without long-term use Chronic kidney disease stage: stage 4 (severe) Is this a current diagnosis for this admission?: Yes Plan: As per Dr. Garirdo. (9) Abnormal prothrombin time (PT) Plan: Likely from his abnormal liver functions. Monitor. (10) Nausea Plan: Electrolytes are normal. However mag was low normal. Will recheck it again.
[2020-09-06] MEDS: MIDODRINE HCL 5 MG TABLET PO SCH ×3 (12:30→17:08)
--- NOTE | 2020-09-06 13:57 | RADIOLOGY REPORT (SQ) ---
EXAM DESCRIPTION: INJECT VENOUS ACCESS DEVICE IMAGES COMPLETED DATE/TIME: 09/05/2020 3:27 pm REASON FOR STUDY: Pain with port flush COMPARISON: None. FLUOROSCOPY TIME: 45 seconds 8 images saved to PACS. All TECHNIQUE: Fluoroscopic guided injection of non-ionic contrast through an existing port a catheter. LIMITATIONS: None. PROCEDURE: The patient was brought into the fluoroscopic room and placed supine on the table. The pa tient's port was already accessed, therefore this access was used for injection. Initial fluoroscopi c evaluation demonstrates catheter to be in good position and intact. Blood was aspirated from the c atheter and then normal saline was flushed without difficulty. The catheter was then injected with ap proximately 13 ml of non-ionic contrast. The catheter tip lies within the right atrium. Brisk flow of contrast from the catheter tip was observed. The patient did not express any discomfort during th e catheter injection. A series of fluoroscopic images demonstrate no extravasation from the port wel l or any evidence of fibrin sheath at the end of the catheter. IMPRESSION: PATENT PORT A CATHETER WITHOUT ANY EVIDENCE OF EXTRAVASATION OR FIBRIN SHEATH. COMMENT: Quality ID [id number]: Final reports for procedures using fluoroscopy that document radiation exp osure indices, or exposure time and number of fluorographic images (if radiation exposure indices are not available) TECHNICAL DOCUMENTATION: JOB ID: [id number] 2010 [employer]- All Rights Reserved Reading location - IP/workstation name: [email or web address] [id number]
[2020-09-06] MEDS ORDERED: NORMAL SALINE 250 ML with FUROSEMIDE 250 MG IV PRN ×2 (14:00)
[2020-09-06] MEDS: ALBUMIN HUMAN 12.5 GM/50 ML RTUINJ IV SCH ×2 (14:09→22:18)
--- NOTE | 2020-09-06 15:22 | RADIOLOGY REPORT (SQ) ---
EXAM DESCRIPTION: CHEST SINGLE VIEW IMAGES COMPLETED DATE/TIME: 09/06/2020 2:36 pm REASON FOR STUDY: dyspnea COMPARISON: 09/02/2020 and 08/30/2020 EXAM PARAMETERS: NUMBER OF VIEWS: One view. TECHNIQUE: Single frontal radiographic view of the chest acquired. RADIATION DOSE: NA LIMITATIONS: None. FINDINGS: LUNGS AND PLEURA: Low lung volumes with resultant bronchovascular crowding. Persistent le ft lung base opacity likely on the basis of atelectasis. No pneumothorax. MEDIASTINUM AND HILAR STRUCTURES: Stable. HEART AND VASCULAR STRUCTURES: Heart normal in size. Normal vasculature. BONES: No acute findings. HARDWARE: Right anterior chest wall Port-A-Cath appear stable in position. OTHER: No other significant finding. IMPRESSION: Stable radiographic appearance of the chest noting persistent left lung base density. N o evidence of acute cardiopulmonary abnormality. RECOMMENDATIONS: Dedicated PA/ Lat chest imaging for improved characterization TECHNICAL DOCUMENTATION: JOB ID: [id number] 2010 [employer]- All Rights Reserved Reading location - IP/workstation name: [email or web address]
[2020-09-06] MEDS: CEFTRIAXONE 1 GM/D5W RTU 1 GM/50 ML RTUPB IV SCH (17:07)
[2020-09-06] MEDS: AZITHROMYCIN 500 MG in DEXTROSE 5%-WATER 250 ML IV SCH (17:48)
[2020-09-07] MEDS: HEPARIN SOD (PORCINE) 5,000 UNIT/ML 1 ML VIAL SUBCUT SCH ×3 (04:41→17:56)
[2020-09-07 06:58] LABS: ALBUMIN 3.1 g/dL (3.5-5.0); ALKALINE PHOSPHATASE 514 U/L (38-126); ANION GAP 15 (5-19); BILIRUBIN,DIRECT 4.3 mg/dL (0.0-0.4); BLOOD UREA NITROGEN 91 mg/dL (7-20); CARBON DIOXIDE 19 mmol/L (22-30); CHLORIDE 102 mmol/L (98-107); GLUCOSE 99 mg/dL (75-110); PHOSPHORUS 7.4 mg/dL (2.5-4.5); POTASSIUM 5.3 mmol/L (3.6-5.0); TOTAL PROTEIN 6.7 g/dL (6.3-8.2)
[2020-09-07 07:00] LABS: HEMATOCRIT 31.2 % (37.9-51.0); HEMOGLOBIN 10.3 g/dL (13.5-17.0); MEAN CORPUSCULAR HEMOGLOBIN 32.4 pg (27.0-33.4); MEAN CORPUSCULAR HGB CONC 32.9 g/dL (32.0-36.0); MEAN CORPUSCULAR VOLUME 99 fl (80-97); RED BLOOD COUNT 3.17 10^6/uL (4.35-5.55); WHITE BLOOD COUNT 13.8 10^3/uL (4.0-10.5)
[2020-09-07] MEDS: ALBUMIN HUMAN 12.5 GM/50 ML RTUINJ IV SCH ×3 (07:00→22:42)
[2020-09-07 07:01] LABS: PLATELET COUNT 161 10^3/uL (150-450)
[2020-09-07] MEDS: PANTOPRAZOLE SODIUM 40 MG TABLET.DR PO SCH ×2 (07:01→17:57)
[2020-09-07 07:04] LABS: ABSOLUTE LYMPHOCYTES# (MANUAL) 1.1 10^3/uL (0.5-4.7); ABSOLUTE MONOCYTES # (MANUAL) 0.6 10^3/uL (0.1-1.4); BASOPHILS % (MANUAL) 1 % (0-2); EOSINOPHILS % (MANUAL) 1 % (0-6); LYMPHOCYTES % (MANUAL) 8 % (13-45); MONOCYTES % (MANUAL) 4 % (3-13); SEGMENTED NEUTROPHILS % (MAN) 86 % (42-78); TOTAL CELLS COUNTED 100
[2020-09-07 07:07] LABS: ASPARTATE AMINO TRANSFERASE 1263 U/L (17-59)
[2020-09-07 07:13] LABS: ANISOCYTOSIS 2+; HYPOCHROMASIA SLIGHT; POLYCHROMASIA SLIGHT; TARGET CELLS 1+
[2020-09-07 07:14] LABS: PLATELET CLUMPS PRESENT; PLATELET COMMENT ADEQUATE
[2020-09-07] MEDS: INSULIN LISPRO 100 UNIT/ML 3 ML VIAL SUBCUT SCH ×4 (08:14→22:42)
--- NOTE | 2020-09-07 08:28 | PDOC PROGRESS REPORT ---
Subjective Date:: 09/07/20 Subjective:: Reviewed labs, creatinine worsening as well as liver function, discussed that even with dialysis unlikely that we would be able to get chemotherapy safely, patient agrees. Spoke with daughter as well who understands. Discussed with child welfare social worker will reach out to patient and family and discuss home hospice if possible. Reason For Visit: RENAL FAILUREP Physical Exam Vital Signs: Temp Pulse Resp BP Pulse Ox 98.6 F 101 H 20 92/54 L 95 09/07/20 03:12 09/07/20 03:12 09/07/20 03:12 09/07/20 03:12 09/07/20 03:12 Intake & Output 09/06/20 09/07/20 09/08/20 06:59 06:59 06:59 Intake Total 20018 Output Total 825 635 Balance 1177 1083 Weight 143.5 kg 146.8 kg General appearance: PRESENT: no acute distress, well-developed, well-nourished Head exam: PRESENT: atraumatic, normocephalic Eye exam: PRESENT: conjunctiva pink, EOMI, PERRLA. ABSENT: scleral icterus Ear exam: PRESENT: normal external ear exam Mouth exam: PRESENT: moist, tongue midline Neck exam: ABSENT: carotid bruit, JVD, lymphadenopathy, thyromegaly Respiratory exam: PRESENT: clear to auscultation darron. ABSENT: rales, rhonchi, wheezes Cardiovascular exam: PRESENT: RRR. ABSENT: diastolic murmur, rubs, systolic murmur Pulses: PRESENT: normal dorsalis pedis pul Vascular exam: PRESENT: normal capillary refill GI/Abdominal exam: PRESENT: normal bowel sounds, soft. ABSENT: distended, guarding, mass, organolmegaly, rebound, tenderness Rectal exam: PRESENT: deferred Extremities exam: PRESENT: full ROM. ABSENT: calf tenderness, clubbing, pedal e princess Neurological exam: PRESENT: alert, awake, oriented to person, oriented to place, oriented to time, oriented to situation, CN II-XII grossly intact. ABSENT: motor sensory deficit Psychiatric exam: PRESENT: appropriate affect, normal mood. ABSENT: homicidal ideation, suicidal ideation Skin exam: PRESENT: dry, intact, warm. ABSENT: cyanosis, rash Results Laboratory Results: 09/07/20 05:50 09/07/20 05:50 09/06/20 09/07/20 09/07/20 06:19 05:50 05:50 WBC 13.8 H RBC 3.17 L Hgb 10.3 L Hct 31.2 L MCV 99 H MCH 32.4 MCHC 32.9 RDW 20.0 H Plt Count 161 Seg Neutrophils % Not Reportable Sodium 136.3 L Potassium 5.3 H Chloride 102 Carbon Dioxide 19 L Anion Gap 15 BUN 91 H Creatinine 3.96 H Est GFR ( Amer) 19 L Glucose 99 Calcium 9.0 Phosphorus 7.4 H Magnesium 1.7 1.8 Total Bilirubin 5.0 H AST 1263 H Alkaline Phosphatase 514 H Total Protein 6.7 Albumin 3.1 L 08/30/20 08/31/20 09/01/20 16:40 06:50 05:45 Creatine Kinase 207 H Troponin I < 0.012 NT-Pro-B Natriuret Pep 3560 H 09/01/20 09/02/20 05:45 05:57 Creatine Kinase Troponin I NT-Pro-B Natriuret Pep 4810 H 3850 H Impressions: Abdomen/Pelvis CT 08/30/20 00:00 IMPRESSION: Heterogeneous pattern in the liver which is strongly suspicious for multiple masses. Generalize moderate ascites. Findings very worrisome for metastatic disease. Venous Doppler Study 08/30/20 17:06 IMPRESSION: No acute DVT or SVT in either leg. 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 No hydronephrosis. Venous Access Device Injection 09/05/20 00:00 IMPRESSION: PATENT PORT A CATHETER WITHOUT ANY EVIDENCE OF EXTRAVASATION OR FIBRIN SHEATH. Chest X-Ray 09/06/20 11:28 IMPRESSION: Stable radiographic appearance of the chest noting persistent left lung base density. No evidence of acute cardiopulmonary abnormality. Assessment & Plan - Diagnosis (1) Esophageal cancer Qualifiers: Malignant neoplasm of esophagus location: lower third Qualified Code(s): 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 Is this a current diagnosis for this admission?: Yes Plan: No therapy possible, discussing comfort care (2) Acute renal failure Qualifiers: Acute renal failure type: unspecified Qualified Code(s): N17.9 - Acute kidney failure, unspecified Is this a current diagnosis for this admission?: Yes Plan: Atul with supportive care for now until patient discusses with daughter. - Time Time Spent with patient: 35 or more minutes
--- NOTE | 2020-09-07 10:53 | PDOC PROGRESS REPORT ---
Subjective Date:: 09/07/20 Subjective:: Patient is currently doing fair Patient denies any nausea complaints Patient's kidney function is more worse in the liver function is more worse Per discussed with the oncology and nephrology at this point nothing much can be offer at this stage IVb cervical cancer with the liver mets with the worsening the liver functions more start developing the hepatorenal syndromes As per discussed with the nephrology at this point dialysis is not going to make much improvement with no change in the prognosis Dr. Nolen discussed with the patient's daughter and the patient and myself I disc ussed with the patient with the patient's current conditions with a not a good prognosis discussed about the hospice care Reason For Visit: RENAL FAILUREP Physical Exam Vital Signs: Temp Pulse Resp BP Pulse Ox 98.6 F 98 16 91/50 L 96 09/07/20 07:46 09/07/20 07:46 09/07/20 07:46 09/07/20 07:46 09/07/20 07:46 Intake & Output 09/06/20 09/07/20 09/08/20 06:59 06:59 06:59 Intake Total 2001 1718 Output Total 825 635 Balance 1177 1083 Weight 143.5 kg 146.8 kg General appearance: PRESENT: no acute distress, well-developed, well-nourished Head exam: PRESENT: atraumatic, normocephalic Eye exam: PRESENT: conjunctiva pink, EOMI, PERRLA. ABSENT: scleral icterus Ear exam: PRESENT: normal external ear exam Mouth exam: PRESENT: moist, tongue midline Neck exam: PRESENT: full ROM. ABSENT: carotid bruit, JVD, lymphadenopathy, thyromegaly Respiratory exam: PRESENT: clear to auscultation darron Cardiovascular exam: PRESENT: RRR. ABSENT: diastolic murmur, rubs, systolic murmur Vascular exam: PRESENT: normal capillary refill GI/Abdominal exam: PRESENT: normal bowel sounds, soft. ABSENT: distended, guarding, mass, organolmegaly, rebound, tenderness Rectal exam: PRESENT: deferred Neurological exam: PRESENT: alert, awake, oriented to person, oriented to place, oriented to time, oriented to situation, CN II-XII grossly intact. ABSENT: motor sensory deficit Psychiatric exam: PRESENT: appropriate affect, normal mood. ABSENT: homicidal ideation, suicidal ideation Skin exam: PRESENT: dry, intact, warm. ABSENT: cyanosis, rash Results Laboratory Results: 09/07/20 05:50 09/07/20 05:50 09/06/20 09/07/20 09/07/20 06:19 05:50 05:50 WBC 13.8 H RBC 3.17 L Hgb 10.3 L Hct 31.2 L MCV 99 H MCH 32.4 MCHC 32.9 RDW 20.0 H Plt Count 161 Seg Neutrophils % Not Reportable Sodium 136.3 L Potassium 5.3 H Chloride 102 Carbon Dioxide 19 L Anion Gap 15 BUN 91 H Creatinine 3.96 H Est GFR ( Amer) 19 L Glucose 99 Calcium 9.0 Phosphorus 7.4 H Magnesium 1.7 1.8 Total Bilirubin 5.0 H AST 1263 H Alkaline Phosphatase 514 H Total Protein 6.7 Albumin 3.1 L 08/30/20 08/31/20 09/01/20 16:40 06:50 05:45 Creatine Kinase 207 H Troponin I < 0.012 NT-Pro-B Natriuret Pep 3560 H 09/01/20 09/02/20 05:45 05:57 Creatine Kinase Troponin I NT-Pro-B Natriuret Pep 4810 H 3850 H Impressions: Abdomen/Pelvis CT 08/30/20 00:00 IMPRESSION: Heterogeneous pattern in the liver which is strongly suspicious for multiple masses. Generalize moderate ascites. Findings very worrisome for metastatic disease. Venous Doppler Study 08/30/20 17:06 IMPRESSION: No acute DVT or SVT in either leg. 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 No hydronephrosis. Venous Access Device Injection 09/05/20 00:00 IMPRESSION: PATENT PORT A CATHETER WITHOUT ANY EVIDENCE OF EXTRAVASATION OR FIBRIN SHEATH. Chest X-Ray 09/06/20 11:28 IMPRESSION: Stable radiographic appearance of the chest noting persistent left lung base density. No evidence of acute cardiopulmonary abnormality. Assessment & Plan - Diagnosis (1) Acute renal failure Qualifiers: Acute renal failure type: unspecified Qualified Code(s): N17.9 - Acute kidney failure, unspecified Is this a current diagnosis for this admission?: Yes (2) Diastolic congestive heart failure Qualifiers: Heart failure chronicity: acute on chronic Qualified Code(s): I50.33 - Acute on chronic diastolic (congestive) heart failure Is this a current diagnosis for this admission?: Yes (3) Jaundice Is this a current diagnosis for this admission?: Yes (4) Atrial fibrillation Qualifiers: Atrial fibrillation type: unspecified chronic Qualified Code(s): I48.20 - Chronic atrial fibrillation, unspecified; I48.2 - Chronic atrial fibrillation Is this a current diagnosis for this admission?: Yes (5) Hypotension Qualifiers: Hypotension type: unspecified hypotension type Qualified Code(s): I95.9 - Hypotension, unspecified Is this a current diagnosis for this admission?: Yes (6) Protein malnutrition Is this a current diagnosis for this admission?: Yes (7) Ascites Qualifiers: Ascites type: malignant Qualified Code(s): R18.0 - Malignant ascites Is this a current diagnosis for this admission?: Yes (8) Esophageal cancer Qualifiers: Malignant neoplasm of esophagus location: lower third Qualified Code(s): 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 Is this a current diagnosis for this admission?: Yes (9) Abnormal TSH Is this a current diagnosis for this admission?: Yes (10) Type 2 diabetes mellitus Qualifiers: Diabetes mellitus longwall machine operator helper insulin use: without longwall machine operator helper use Chronic kidney disease stage: stage 4 (severe) Is this a current diagnosis for this admission?: Yes - Time Time Spent with patient: 15-24 minutes Level of Care: IMCU Medications reviewed and adjusted accordingly: Yes Anticipated discharge: Hospice Anticipated DC Timeframe: Other - Plan Summary Plan Summary: Patient at this point still with the not a very good prognosis discussed with the patient and the daughter and hopefully patient should be discharged next week with the hospice care will continues to current medications once the patient and the family decide about the hospice consult the order planner
[2020-09-07] MEDS: MIDODRINE HCL 5 MG TABLET PO SCH ×3 (11:02→17:57)
[2020-09-07] MEDS: GABAPENTIN 300 MG CAPSULE PO SCH (11:02)
[2020-09-07] MEDS: POLYETHYLENE GLYCOL 3350 POWDER 17 GM/1 PACKET PO SCH (11:03)
--- NOTE | 2020-09-07 14:29 | PDOC PROGRESS REPORT ---
Subjective Date:: 09/07/20 Reason For Visit: Patient seen today. He looks very weak and tired. He denies any history of chest pain but feels that his abdominal distention is getting worse with intermittent nausea. He is retaining more fluid in spite of adjustments done to his medications. Labs and medications were reviewed and discussed with him. Discussed his rising white count/worsening LFTs as well as renal numbers. This is indicative of a much more rapidly progressive cancer with metastasis that augurs a very poor prognosis. Physical Exam Vital Signs: Temp Pulse Resp BP Pulse Ox 98.6 F 98 16 91/50 L 96 09/07/20 10:00 09/07/20 07:46 09/07/20 07:46 09/07/20 07:46 09/07/20 07:46 Intake & Output 09/06/20 09/07/20 09/08/20 06:59 06:59 06:59 Intake Total 2001 1718 50 Output Total 825 635 Balance 1177 1083 50 Weight 143.5 kg 146.8 kg General appearance: PRESENT: disheveled Respiratory exam: PRESENT: clear to auscultation darron, decreased breath sounds. ABSENT: crackles Cardiovascular exam: PRESENT: +S1, +S2 GI/Abdominal exam: PRESENT: ascites, distended, organomegaly, soft, tenderness - RUQ. ABSENT: firm, guarding, normal bowel sounds Extremities exam: PRESENT: +2 edema Neurological exam: PRESENT: alert, awake, oriented to person, oriented to place Psychiatric exam: PRESENT: depressed Results Laboratory Results: 09/07/20 05:50 09/07/20 05:50 09/07/20 09/07/20 05:50 05:50 WBC 13.8 H RBC 3.17 L Hgb 10.3 L Hct 31.2 L MCV 99 H MCH 32.4 MCHC 32.9 RDW 20.0 H Plt Count 161 Seg Neutrophils % Not Reportable Sodium 136.3 L Potassium 5.3 H Chloride 102 Carbon Dioxide 19 L Anion Gap 15 BUN 91 H Creatinine 3.96 H Est GFR ( Amer) 19 L Glucose 99 Calcium 9.0 Phosphorus 7.4 H Magnesium 1.8 Total Bilirubin 5.0 H AST 1263 H Alkaline Phosphatase 514 H Total Protein 6.7 Albumin 3.1 L 08/30/20 08/31/20 09/01/20 16:40 06:50 05:45 Creatine Kinase 207 H Troponin I < 0.012 NT-Pro-B Natriuret Pep 3560 H 09/01/20 09/02/20 05:45 05:57 Creatine Kinase Troponin I NT-Pro-B Natriuret Pep 4810 H 3850 H Impressions: Abdomen/Pelvis CT 08/30/20 00:00 IMPRESSION: Heterogeneous pattern in the liver which is strongly suspicious for multiple masses. Generalize moderate ascites. Findings very worrisome for metastatic disease. Venous Doppler Study 08/30/20 17:06 IMPRESSION: No acute DVT or SVT in either leg. 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 No hydronephrosis. Venous Access Device Injection 09/05/20 00:00 IMPRESSION: PATENT PORT A CATHETER WITHOUT ANY EVIDENCE OF EXTRAVASATION OR FIBRIN SHEATH. Chest X-Ray 09/06/20 11:28 IMPRESSION: Stable radiographic appearance of the chest noting persistent left lung base density. No evidence of acute cardiopulmonary abnormality. Assessment & Plan - Diagnosis (1) Acute renal failure Qualifiers: Acute renal failure type: unspecified Qualified Code(s): N17.9 - Acute kidney failure, unspecified Is this a current diagnosis for this admission?: Yes Plan: At this point his overall status has deteriorated given his worsening liver functions and rising renal numbers. In an ideal situation I would've started him on dialysis but given his overall deterioration along with his dropping blood pressure and rising white count it looks like his cancer is taking over much more rapidly than otherwise thought. Right now he is not a candidate for hemodialysis and will probably need CVVH if one were to consider any form of renal replacements. However Dr. Lopez/[facility] oncologist have spoken with him and he understands the very poor prognosis and understand that dialysis is not going to make a difference. Therefore I recommend comfort care. I will sign off the patient's care but will be glad to see him anytime if needs be. (2) Esophageal cancer Qualifiers: Malignant neoplasm of esophagus location: lower third Qualified Code(s): 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 Is this a current diagnosis for this admission?: Yes (4) Ascites Qualifiers: Ascites type: malignant Qualified Code(s): R18.0 - Malignant ascites Is this a current diagnosis for this admission?: Yes (5) Hypotension Qualifiers: Hypotension type: unspecified hypotension type Qualified Code(s): I95.9 - Hypotension, unspecified Is this a current diagnosis for this admission?: Yes (6) Diastolic congestive heart failure Qualifiers: Heart failure chronicity: acute on chronic Qualified Code(s): I50.33 - Acute on chronic diastolic (congestive) heart failure Is this a current diagnosis for this admission?: Yes (7) Atrial fibrillation Qualifiers: Atrial fibrillation type: unspecified chronic Qualified Code(s): I48.20 - Chronic atrial fibrillation, unspecified; I48.2 - Chronic atrial fibrillation Is this a current diagnosis for this admission?: Yes (8) Type 2 diabetes mellitus Qualifiers: Diabetes mellitus shelter insulin use: without shelter use Chronic kidney disease stage: stage 4 (severe) Is this a current diagnosis for this admission?: Yes
[2020-09-07] MEDS: AZITHROMYCIN 500 MG in DEXTROSE 5%-WATER 250 ML IV SCH (19:00)
[2020-09-07] MEDS: CEFTRIAXONE 1 GM/D5W RTU 1 GM/50 ML RTUPB IV SCH (19:03)
[2020-09-08] MEDS: HEPARIN SOD (PORCINE) 5,000 UNIT/ML 1 ML VIAL SUBCUT SCH ×2 (02:24→09:26)
[2020-09-08] MEDS: ALBUMIN HUMAN 12.5 GM/50 ML RTUINJ IV SCH (05:07)
[2020-09-08] MEDS: PANTOPRAZOLE SODIUM 40 MG TABLET.DR PO SCH (05:07)
[2020-09-08 06:50] LABS: ALBUMIN 2.8 g/dL (3.5-5.0); ALKALINE PHOSPHATASE 418 U/L (38-126); ANION GAP 15 (5-19); ASPARTATE AMINO TRANSFERASE 662 U/L (17-59); BILIRUBIN,DIRECT 4.9 mg/dL (0.0-0.4); BILIRUBIN,TOTAL 5.5 mg/dL (0.2-1.3); BLOOD UREA NITROGEN 96 mg/dL (7-20); CALCIUM 8.8 mg/dL (8.4-10.2); CARBON DIOXIDE 21 mmol/L (22-30); CHLORIDE 99 mmol/L (98-107); GLUCOSE 98 mg/dL (75-110); POTASSIUM 5.7 mmol/L (3.6-5.0)
[2020-09-08] MEDS: INSULIN LISPRO 100 UNIT/ML 3 ML VIAL SUBCUT SCH ×2 (08:37→13:20)
--- NOTE | 2020-09-08 08:45 | PDOC PROGRESS REPORT ---
Subjective Date:: 09/08/20 Subjective:: Discussed case with patient as well as daughter this morning, they are interested in getting a second opinion. They wanted to see if Aileen or Lázaro could give a second opinion, I discussed this with Dr. Garrido who will be reaching out to see. Otherwise they note the discharge plan did not call them yesterday. Reason For Visit: RENAL FAILUREP Physical Exam Vital Signs: Temp Pulse Resp BP Pulse Ox 97.8 F 90 18 82/49 L 95 09/08/20 03:46 09/08/20 07:00 09/08/20 03:46 09/08/20 03:47 09/08/20 03:47 Intake & Output 09/07/20 09/08/20 09/09/20 06:59 06:59 06:59 Intake Total 1718 450 Output Total 635 100 Balance 1083 350 Weight 146.8 kg 148.1 kg General appearance: PRESENT: no acute distress, well-developed, well-nourished Head exam: PRESENT: atraumatic, normocephalic Eye exam: PRESENT: conjunctiva pink, EOMI, PERRLA. ABSENT: scleral icterus Ear exam: PRESENT: normal external ear exam Mouth exam: PRESENT: moist, tongue midline Neck exam: ABSENT: carotid bruit, JVD, lymphadenopathy, thyromegaly Respiratory exam: PRESENT: clear to auscultation darron. ABSENT: rales, rhonchi, wheezes Cardiovascular exam: PRESENT: RRR. ABSENT: diastolic murmur, rubs, systolic murmur Pulses: PRESENT: normal dorsalis pedis pul Vascular exam: PRESENT: normal capillary refill GI/Abdominal exam: PRESENT: normal bowel sounds, soft. ABSENT: distended, guarding, mass, organolmegaly, rebound, tenderness Rectal exam: PRESENT: deferred Extremities exam: PRESENT: full ROM. ABSENT: calf tenderness, clubbing, pedal edema Neurological exam: PRESENT: alert, awake, oriented to person, oriented to place, oriented to time, oriented to situation, CN II-XII grossly intact. ABSENT: motor sensory deficit Psychiatric exam: PRESENT: appropriate affect, normal mood. ABSENT: homicidal ideation, suicidal ideation Skin exam: PRESENT: dry, intact, warm. ABSENT: cyanosis, rash Results Laboratory Results: 09/07/20 05:50 09/08/20 05:45 09/08/20 05:45 Sodium 135.0 L Potassium 5.7 H Chloride 99 Carbon Dioxide 21 L Anion Gap 15 BUN 96 H Creatinine 4.73 H Est GFR ( Amer) 15 L Glucose 98 Calcium 8.8 Total Bilirubin 5.5 H AST 662 H Alkaline Phosphatase 418 H Total Protein 6.0 L Albumin 2.8 L 08/30/20 08/31/20 09/01/20 16:40 06:50 05:45 Creatine Kinase 207 H Troponin I < 0.012 NT-Pro-B Natriuret Pep 3560 H 09/01/20 09/02/20 05:45 05:57 Creatine Kinase Troponin I NT-Pro-B Natriuret Pep 4810 H 3850 H Impressions: Abdomen/Pelvis CT 08/30/20 00:00 IMPRESSION: Heterogeneous pattern in the liver which is strongly suspicious for multiple masses. Generalize moderate ascites. Findings very worrisome for metastatic disease. Venous Doppler Study 08/30/20 17:06 IMPRESSION: No acute DVT or SVT in either leg. 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 No hydronephrosis. Venous Access Device Injection 09/05/20 00:00 IMPRESSION: PATENT PORT A CATHETER WITHOUT ANY EVIDENCE OF EXTRAVASATION OR FIBRIN SHEATH. Chest X-Ray 09/06/20 11:28 IMPRESSION: Stable radiographic appearance of the chest noting persistent left lung base density. No evidence of acute cardiopulmonary abnormality. Assessment & Plan - Diagnosis (1) Esophageal cancer Qualifiers: Malignant neoplasm of esophagus location: lower third Qualified Code(s): 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 Is this a current diagnosis for this admission?: Yes Plan: Do not feel that therapy will be possible, but patient and family would like second opinion so I asked Dr. Garrido to see if transfer could be done. (2) Acute renal failure Qualifiers: Acute renal failure type: unspecified Qualified Code(s): N17.9 - Acute kidney failure, unspecified Is this a current diagnosis for this admission?: Yes Plan: Not improving, probably going towards dialysis. - Time Time Spent with patient: 35 or more minutes - Inpatient Certification Based on my medical assessment, after consideration of the patient's co morbidities, presenting symptoms, or acuity I expect that the services needed warrant INPATIENT care.: Yes I certify that my determination is in accordance with my understanding of Medicare's requirements for reasonable and necessary INPATIENT services [42 CFR 412.3e].: Yes Medical Necessity: Risk of Complication if Not Cared For in Hospital
[2020-09-08] MEDS ORDERED: DOPAMINE HCL 800 MG/D5W 250 ML IV PRN (09:02)
[2020-09-08] MEDS: POLYETHYLENE GLYCOL 3350 POWDER 17 GM/1 PACKET PO SCH (09:19)
[2020-09-08] MEDS: GABAPENTIN 300 MG CAPSULE PO SCH (09:26)
[2020-09-08] MEDS: MIDODRINE HCL 5 MG TABLET PO SCH (09:29)
[2020-09-08] MEDS ORDERED: CEFEPIME 1 GM/D5W RTU 1 GM/50 ML RTUPB IV SCH (10:00)
--- NOTE | 2020-09-08 10:23 | PDOC TRANSFER SUMMARY ---
General Admission Date/PCP: 08/30/20 18:04 DIANA SHERMAN MD Transfer Date: 09/08/20 Accepting Facility: [facility] Resuscitation Status: Full Code - Transfer Diagnosis (1) Acute renal failure Is this a current diagnosis for this admission?: Yes (2) Diastolic congestive heart failure Is this a current diagnosis for this admission?: Yes (3) Jaundice Is this a current diagnosis for this admission?: Yes (4) Atrial fibrillation Is this a current diagnosis for this admission?: Yes (5) Hypotension Is this a current diagnosis for this admission?: Yes (6) Protein malnutrition Is this a current diagnosis for this admission?: Yes (7) Ascites Is this a current diagnosis for this admission?: Yes (8) Esophageal cancer Is this a current diagnosis for this admission?: Yes (9) Abnormal TSH Is this a current diagnosis for this admission?: Yes (10) Type 2 diabetes mellitus Is this a current diagnosis for this admission?: Yes - Transfer Medications Home Medications: Albuterol Sulfate [Albuterol Sulfate Hfa] 2 puff IH Q6HP PRN 08/31/20 Albuterol Sulfate [Proair Hfa Inhalation Aerosol 8.5 gm Mdi] 1 puff IH Q6HP PRN 08/31/20 Dulaglutide [Trulicity] 0.75 mg SQ DAILY 08/31/20 Gabapentin [Neurontin 300 mg Capsule] 300 mg PO DAILY 08/31/20 Metformin HCl [Glucophage 500 mg Tablet] 500 mg PO DAILY 08/31/20 Omeprazole 20 mg PO DAILY 08/31/20 Rivaroxaban [Xarelto] 20 mg PO DAILY 08/31/20 Rosuvastatin Calcium 5 mg PO DAILY 08/31/20 Transfer Medications: Current Medications Albuterol (Ventolin Hfa 8 Gm Mdi) 2 puff IH Q6HP PRN PRN Reason: SHORTNESS OF BREATH Stop: 09/30/20 12:41 Amoxicillin (Amoxicillin Trihydrate 500 Mg Capsule) 500 mg PO Q8 TYRONE Stop: 09/15/20 13:59 Dextrose (Dextrose Inj 50% Syringe (25 Gm/50 Ml)) 12.5 gm IV PRN PRN; Protocol PRN Reason: FOR BG 50-69 IN ALERT PATIENT Stop: 09/30/20 12:11 Dextrose (Dextrose Inj 50% Syringe (25 Gm/50 Ml)) 25 gm IV PRN PRN; Protocol PRN Reason: PER PROTOCOL Stop: 09/30/20 12:11 Gabapentin (Neurontin 300 Mg Capsule) 300 mg PO DAILY TYRONE Stop: 10/01/20 09:59 Last Admin: 09/08/20 09:26 Dose: 300 mg Documented by: Glucagon (Glucagen Inj 1 Mg Vial) 1 mg IM PRN PRN; Protocol PRN Reason: Evaluate for BG < 70 Stop: 09/30/20 12:11 Glucose (Glutose 40% Gel 15 Gm Tube) 15 gm PO PRN PRN; Protocol PRN Reason: FOR BG 50-69 IN ALERT PATIENT Stop: 09/30/20 12:11 Glucose (Glutose 40% Gel 15 Gm Tube) 30 gm PO PRN PRN; Protocol PRN Reason: FOR BG < 50 IN ALERT PATIENT Stop: 09/30/20 12:11 Heparin Sodium (Porcine) (Heparin Flush 10 Unit/Ml 5 Ml Disp.Syrg) 50 unit IV Q8 TYRONE Stop: 10/03/20 21:59 Last Admin: 09/08/20 05:05 Dose: Not Given Documented by: Heparin Sodium (Porcine) (Heparin Flush 10 Unit/Ml 5 Ml Disp.Syrg) 50 unit IV .AFTER EACH USE PRN PRN Reason: AFTER EACH INTERMITTENT USE Stop: 10/03/20 20:29 Heparin Sodium (Porcine) (Heparin Flush 100 Unit/Ml 5 Ml Syringe) 500 unit IV .DE-ACCESSING PRN PRN Reason: AT DISCHARGE Stop: 10/03/20 23:06 Heparin Sodium (Porcine) (Heparin Sod (Porcine) 5,000 Unit/Ml 1 Ml Vial) 5,000 unit SUBCUT Q8A [facility] Stop: 10/05/20 09:59 Last Admin: 09/08/20 09:26 Dose: 5,000 unit Documented by: Albumin Human (Albuminar-25 Rtu Inj 12.5 Gm/50 Ml Premix) 12.5 gm in 50 mls @ 50 mls/hr IV Q8 [facility] Stop: 09/09/20 13:59 Last Admin: 09/08/20 05:07 Dose: 50 mls/hr, 50 mls/hr Documented by: Furosemide 250 mg/ Sodium (Chloride) 250 mls @ 4 mls/hr IV CONTINUOUS PRN PRN Reason: THIS MED IS NOT "PRN" Stop: 10/06/20 13:59 Last Admin: 09/06/20 14:35 Dose: 4 mls/hr, 4 mls/hr Documented by: Dopamine HCl/Dextrose (Dopamine Rtu 800 Mg-D5w 250 Ml (Adult) Premix) 800 mg in 250 mls @ 5.554 mls/hr IV CONTINUOUS PRN; Protocol PRN Reason: THIS MED IS NOT "PRN" Stop: 10/08/20 09:01 Last Admin: 09/08/20 09:08 Dose: 2 mcg/kg/min, 5.55 mls/hr Documented by: Cefepime HCl (Maxipime Rtu 1 Gm/D5w 50 Ml Premix Bag) 1 gm in 50 mls @ 100 mls/hr IV DAILY [facility] Stop: 09/15/20 09:59 Insulin Human Lispro (Humalog Insulin 100 Unit/1 Ml 3 Ml Vial) 0 - 12 unit SUBCUT ACHS [facility]; Protocol Stop: 09/30/20 15:59 Last Admin: 09/08/20 08:37 Dose: Not Given Documented by: Levothyroxine Sodium (Synthroid 0.025 Mg Tablet) 0.025 mg PO Q6AM [facility] Stop: 10/01/20 05:59 Last Admin: 09/03/20 05:35 Dose: 0.025 mg Documented by: Midodrine (Midodrine Hcl 5 Mg Tablet) 5 mg PO TID [facility] Stop: 10/06/20 11:59 Last Admin: 09/08/20 09:29 Dose: 5 mg Documented by: Ondansetron HCl (Zofran Inj/Pf 4 Mg/2 Ml Sdv) 4 mg IV Q4HP PRN PRN Reason: FOR NAUSEA/VOMITING Stop: 09/29/20 18:04 Last Admin: 09/06/20 04:35 Dose: 4 mg Documented by: Pantoprazole Sodium (Protonix [address] Tablet) 40 mg PO BID@0600,1700 [facility] Stop: 09/30/20 05:59 Last Admin: 09/08/20 05:07 Dose: 40 mg Documented by: Polyethylene Glycol (Miralax Powder 17 Gm/Packet) 17 gm PO DAILY [facility] Stop: 10/04/20 09:59 Last Admin: 09/08/20 09:19 Dose: Not Given Documented by: Promethazine HCl (Promethazine Hcl 25 Mg Tablet) 12.5 mg PO Q6HP PRN PRN Reason: NAUSEA Stop: 10/06/20 09:59 Last Admin: 09/06/20 10:23 Dose: 12.5 mg Documented by: Simethicone (Mylicon 80 Mg Chewable Tablet) 240 mg PO TIDP PRN PRN Reason: FOR GAS (FLATULENCE) Stop: 10/02/20 12:59 Last Admin: 09/06/20 04:27 Dose: 240 mg Documented by: - Allergies Allergies/Adverse Reactions: No Known Allergies Allergy (Verified 08/30/20 15:57) - Diet/Activity Discharge Diet: Cardiac, Diabetic Hospital Course Hospital Course: This is a 65-year-old male recently moved from the [place] with a diagnosed with the Esophageal cancer with the liver mets With a history of the hypertensions type 2 diabetes paroxysmal A. fib diastolic heart failure chronic kidney disease went to the oncology office and get a blood work and noticed patient's creatinine was 6.0 patient is really anasarca referred to the ER In the emergency department patient was admitting in the hospital nephrology and cardiology was consulted patient started on initially Lasix drips and dopamine drip because of the low blood pressures patient's lipid respond from the Creatinine of 6 to the around 4 Patient also have a Enterococcus UTI also patient have a questionable pneumonia but patient however no fever no chills No sign of any Covid Patient at this point treat with the IV antibiotic also patient still not producing much urine output several medication adjusted by nephrology and cardiology Patient's echocardiogram with a normal EF With the esophageal cancer with the liver mets patient liver enzyme is very elevated and at this point patients have a hepatorenal syndrome Very extensive discussion with the patient and the daughter patient understand very well with the prognosis daughter also understand the prognosis is poor but they wants to do everything at this point 1 get some second opinion At this point the patient was because of the low blood pressures transferred to the ICU as per discussed with the local telegraph office manager and the patient at this point need a CVVH due to the hepatorenal syndromes and there is no facilities here in this hospital discussed with the telegraph office manager at the [facility] and patient is going to transfer when the bed available Discussed with the patient and the daughter about transfer patient and daughter understand that overall poor prognosis Discussed with the telegraph office manager here locally discussed with the nephrology and discussed with the hematology Physical Exam Vital Signs: Temp Pulse Resp BP Pulse Ox 97.9 F 96 19 72/26 L 100 09/08/20 08:23 09/08/20 08:25 09/08/20 08:23 09/08/20 08:25 09/08/20 08:25 Intake & Output 09/07/20 09/08/20 09/09/20 06:59 06:59 06:59 Intake Total 1718 450 Output Total 635 100 Balance 1083 350 Weight 146.8 kg 148.1 kg General appearance: PRESENT: no acute distress Eye exam: PRESENT: PERRLA Respiratory exam: PRESENT: decreased breath sounds Cardiovascular exam: PRESENT: +S1, +S2 GI/Abdominal exam: PRESENT: normal bowel sounds, soft Neurological exam: PRESENT: alert, awake, oriented to person, oriented to place, oriented to time, oriented to situation Skin exam: PRESENT: dry Results Laboratory Results: 09/07/20 05:50 09/08/20 05:45 09/08/20 05:45 Sodium 135.0 L Potassium 5.7 H Chloride 99 Carbon Dioxide 21 L Anion Gap 15 BUN 96 H Creatinine 4.73 H Est GFR ( Amer) 15 L Glucose 98 Calcium 8.8 Total Bilirubin 5.5 H AST 662 H Alkaline Phosphatase 418 H Total Protein 6.0 L Albumin 2.8 L 08/30/20 08/31/20 09/01/20 16:40 06:50 05:45 Creatine Kinase 207 H Troponin I < 0.012 NT-Pro-B Natriuret Pep 3560 H 09/01/20 09/02/20 05:45 05:57 Creatine Kinase Troponin I NT-Pro-B Natriuret Pep 4810 H 3850 H Impressions: Abdomen/Pelvis CT 08/30/20 00:00 IMPRESSION: Heterogeneous pattern in the liver which is strongly suspicious for multiple masses. Generalize moderate ascites. Findings very worrisome for metastatic disease. Venous Doppler Study 08/30/20 17:06 IMPRESSION: No acute DVT or SVT in either leg. 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 No hydronephrosis. Venous Access Device Injection 09/05/20 00:00 IMPRESSION: PATENT PORT A CATHETER WITHOUT ANY EVIDENCE OF EXTRAVASATION OR FI BRIN SHEATH. Chest X-Ray 09/06/20 11:28 IMPRESSION: Stable radiographic appearance of the chest noting persistent left lung base density. No evidence of acute cardiopulmonary abnormality. Plan Time Spent: Greater than 30 Minutes - Transfer the patient's to the [facility] when the bed available
[2020-09-08 12:15] VITALS: BP 75/33
--- NOTE | 2020-09-08 12:21 | PDOC PROGRESS REPORT ---
Subjective Date:: 09/08/20 Reason For Visit: Patient seen today. Is unfortunately a deteriorating further. His appetite is poor and intake is therefore suffered. He is also developing more shortness of breath. He did denies any history of fever, chills, severe abdominal pains. Admits to the fact that his abdomen is getting distended. He is also feeling his skin is getting quite tight. His urine output has dropped significantly. Labs and medications were reviewed. His renal functions/numbers are getting much worse.Discussions were done with the treating nurse as well as with Dr. Garrido. Physical Exam Vital Signs: Temp Pulse Resp BP Pulse Ox 97.9 F 96 19 72/26 L 100 09/08/20 08:23 09/08/20 08:25 09/08/20 08:23 09/08/20 08:25 09/08/20 08:25 Intake & Output 09/07/20 09/08/20 09/09/20 06:59 06:59 06:59 Intake Total 1718 450 Output Total 635 100 Balance 1083 350 Weight 146.8 kg 148.1 kg General appearance: PRESENT: mild distress Respiratory exam: PRESENT: clear to auscultation darron, decreased breath sounds. ABSENT: crackles Cardiovascular exam: PRESENT: +S1, +S2 GI/Abdominal exam: PRESENT: ascites, distended, organomegaly, soft, tenderness - RUQ. ABSENT: firm, guarding, normal bowel sounds Extremities exam: PRESENT: +2 edema Neurological exam: PRESENT: alert, awake, oriented to person, oriented to place Psychiatric exam: PRESENT: depressed Skin exam: ABSENT: cyanosis, erythema, mottled, rash Results Laboratory Results: 09/07/20 05:50 09/08/20 05:45 09/08/20 05:45 Sodium 135.0 L Potassium 5.7 H Chloride 99 Carbon Dioxide 21 L Anion Gap 15 BUN 96 H Creatinine 4.73 H Est GFR ( Amer) 15 L Glucose 98 Calcium 8.8 Total Bilirubin 5.5 H AST 662 H Alkaline Phosphatase 418 H Total Protein 6.0 L Albumin 2.8 L 08/30/20 08/31/20 09/01/20 16:40 06:50 05:45 Creatine Kinase 207 H Troponin I < 0.012 NT-Pro-B Natriuret Pep 3560 H 09/01/20 09/02/20 05:45 05:57 Creatine Kinase Troponin I NT-Pro-B Natriuret Pep 4810 H 3850 H Impressions: Abdomen/Pelvis CT 08/30/20 00:00 IMPRESSION: Heterogeneous pattern in the liver which is strongly suspicious for multiple masses. Generalize moderate ascites. Findings very worrisome for metastatic disease. Venous Doppler Study 08/30/20 17:06 IMPRESSION: No acute DVT or SVT in either leg. 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 No hydronephrosis. Venous Access Device Injection 09/05/20 00:00 IMPRESSION: PATENT PORT A CATHETER WITHOUT ANY EVIDENCE OF EXTRAVASATION OR FIBRIN SHEATH. Chest X-Ray 09/06/20 11:28 IMPRESSION: Stable radiographic appearance of the chest noting persistent left lung base density. No evidence of acute cardiopulmonary abnormality. Assessment & Plan - Diagnosis (1) Acute renal failure Qualifiers: Acute renal failure type: unspecified Qualified Code(s): N17.9 - Acute kidney failure, unspecified Is this a current diagnosis for this admission?: Yes Plan: At this point his overall status has deteriorated given his worsening liver functions and rising renal numbers. Patient has become hypotensive anuric and has worsening renal function alongwith generalized fluid overload which normally would necessitate initiating CVVH. Unfortunately patient has got stage IV cancer with liver metastasis that portends very poor prognosis. However the patient would like to have everything done if possible to see if he could be ma de well enough to get chemotherapy. His blood pressures has also dropped signifying either septic shock or severe liver failure producing severe vasodilatation.At this point I would recommend starting him on pressor agents while patient is to be looked for transferring to a tertiary care hospital as we do not have CVVH here. Patient needs to be transferred to ICU to initiate Levophed while he is pancultured. Does not look like he has got bacterial peritonitis but definitely has got ascites and severe third spacing and he clinically looks intravascularly volume depleted. Overall poor prognosis. Discussions were carried out with the treating nurse as well as with Dr. Garrido. 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 Recent diagnosis. Being managed by Dr. Lopez/[facility] oncologist.Poor prognosis. (3) Liver metastases Plan: From primary esophageal cancer. (4) Ascites Qualifiers: Ascites type: malignant Qualified Code(s): R18.0 - Malignant ascites Is this a current diagnosis for this admission?: Yes Plan: Patient has had progressive ascites and has now reached the point that he possibly needs to have a paracentesis as it is now compromising his breathing. Discussed this with but he is now in the process of getting him transferred to a tertiary care center where he can be evaluated for that.Monitor. (5) Hypotension Qualifiers: Hypotension type: unspecified hypotension type Qualified Code(s): I95.9 - Hypotension, unspecified Is this a current diagnosis for this admission?: Yes Plan: Probably multifactorial. Rule out septic shock. Needs pancultures / ABX and needs to be transferred to the ICU for initiation of pressor agents. (6) Atrial fibrillation Qualifiers: Atrial fibrillation type: unspecified chronic Qualified Code(s): I48.20 - Chronic atrial fibrillation, unspecified; I48.2 - Chronic atrial fibrillation Is this a current diagnosis for this admission?: Yes Plan: Paroxysmal. As per cardiology. (7) Type 2 diabetes mellitus Qualifiers: Diabetes mellitus intermediate accountant insulin use: without intermediate accountant use Chronic kidney disease stage: stage 4 (severe) Is this a current diagnosis for this admission?: Yes Plan: As per Dr. Garrido.
[2020-09-08] MEDS ORDERED: AMOXICILLIN TRIHYDRATE 500 MG CAPSULE PO SCH (14:00)
== END 2020-09-08 12:00 | disposition short-term general hospital (02) | DRG 682 ==
LOC: ER 15:22 → EH 18:04 → 5TH 08-31 13:10 → 3S 08-31 19:18
PROVIDERS: ADMIT Family Medicine; ATTEND Family Medicine
DX: N17.9 Acute kidney failure, unspecified (principal); K76.7 Hepatorenal syndrome; C78.7 Secondary malignant neoplasm of liver and intrahepatic bile duct; C15.5 Malignant neoplasm of lower third of esophagus; R18.0 Malignant ascites; I82.812 Embolism and thrombosis of superficial veins of left lower extremity; I48.92 Unspecified atrial flutter; N39.0 Urinary tract infection, site not specified; Z68.42 Body mass index [BMI] 45.0-49.9, adult; I13.0 Hypertensive heart and chronic kidney disease with heart failure and stage 1 through stage 4 chronic kidney disease, or unspecified chronic kidney disease; I50.32 Chronic diastolic (congestive) heart failure; E46 Unspecified protein-calorie malnutrition; I48.0 Paroxysmal atrial fibrillation; E11.22 Type 2 diabetes mellitus with diabetic chronic kidney disease; N18.4 Chronic kidney disease, stage 4 (severe); E66.01 Morbid (severe) obesity due to excess calories; B95.2 Enterococcus as the cause of diseases classified elsewhere; I95.9 Hypotension, unspecified; E03.9 Hypothyroidism, unspecified; E86.0 Dehydration; R94.6 Abnormal results of thyroid function studies; R79.1 Abnormal coagulation profile; J44.9 Chronic obstructive pulmonary disease, unspecified; Z87.891 Personal history of nicotine dependence; Z79.84 Long term (current) use of oral hypoglycemic drugs
CPT/HCPCS: 36415; 36598; 71045; 74176; 76770; 80048; 80053; 81001; 82533; 82550; 82570; 82962; 83690; 83735; 83880; 84100; 84300; 84439; 84443; 84481; 84484; 85025; 85027; 85610; 85730; 87040; 87070; 87086; 87088; 87186; 93005; 93010; 93306; 93970; 99285; J0456; J0696; J1265; J1642; J1644; J1940; J2405; J3490; J7030; J7050; J7060; P9047